=== PATIENT | female | born 1950 | race African-American/Black ===

== ENCOUNTER 2016-08-30 11:17 | Outpatient (CLI) | payer MEDICARE ==
[2016-08-30 12:51] LABS: Hemoglobin 9.7 g/dL (12.0-16.0); Mean Corpuscular HGB CONC 29.8 g/dL (32.0-36.0); Mean Corpuscular Hemoglobin 28.4 pg (27.0-31.0); Mean Corpuscular Volume 95.4 fl (81.0-99.0); Mean Platelet Volume 6.5 fL (7.4-10.4); Platelet Count 232 thou/uL (130-400); RBC Distribution Width 15.6 % (11.5-14.5); Red Blood Cell (RBC) Count 3.42 mill/uL (4.20-5.40); White Blood Cell (WBC) Count 2.6 thou/uL (4.8-10.8)
[2016-08-30 12:53] LABS: ALT (SGPT) 8 U/L (0-55); AST (SGOT) 23 U/L (5-34); Albumin 3.7 g/dL (3.4-4.8); Alkaline Phosphatase 59 U/L (40-150); Anion Gap 11 mmol/L (10-20); BUN (Urea Nitrogen) 12 mg/dL (9.8-20.1); Bilirubin, Total 0.6 mg/dL (0.2-1.2); Calc. Creatinine Clearance 0 mL/min (70-130); Carbon Dioxide 24 mmol/L (23-31); Cardiac Risk 3.8 (Less than 4.5); Chloride 107 mmol/L (98-107); Cholesterol 106 mg/dL (< 200 Desired); Estimated GFR-MDRD 55; Globulin 4.5 g/dL (2.4-3.5); Glucose 74 mg/dL (80-115); HDL Cholesterol 28 mg/dL (>60 Neg Risk); LDL Cholesterol, Calculated 49 mg/dL; Potassium 3.6 mmol/L (3.5-5.1); Protein, Total 8.2 g/dL (5.8-8.1); Sodium 138 mmol/L (136-145); Triglycerides 144 mg/dL (Less than 150)
[2016-08-30 14:03] LABS: Anisocytosis SLIGHT = 6-15 cells (100X) (0-5/hpf); Eosinophils 3 % (0-10); Lymphocytes 57 % (21-51); MDiff Complete? YES; Monocytes 14 % (0-10); Neutrophil 25 % (42-75); PLT Morphology Comment Appears Adequate
== END 2016-08-30 11:18 | disposition home or self-care (01) ==
LOC: HPCALD 11:17
PROVIDERS: ATTEND Family Medicine
DX: I10 Essential (primary) hypertension (principal); E78.5 Hyperlipidemia, unspecified
CPT/HCPCS: 36415; 80053; 80061; 84443; 85025

== ENCOUNTER 2016-11-14 16:52 | Outpatient (CLI) | payer MEDICARE ==
[2016-11-14 17:39] LABS: #Basophils 0.1 thou/uL (0.0-0.2); #Lymphocytes 0.9 thou/uL (1.20-3.40); #Monocytes 0.2 thou/uL (0.11-0.59); #Neutrophils 2.7 thou/uL (1.40-6.50); %Basophils 1.7 % (0.0-1.0); %Eosinophils 0.4 % (0.0-10.0); %Monocytes 4.9 % (0.0-10.0); Hemoglobin 9.6 g/dL (12.0-16.0); Mean Corpuscular HGB CONC 30.9 g/dL (32.0-36.0); Mean Corpuscular Hemoglobin 27.9 pg (27.0-31.0); Mean Corpuscular Volume 90.3 fl (81.0-99.0); Mean Platelet Volume 7.3 fL (7.4-10.4); Platelet Count 250 thou/uL (130-400); RBC Distribution Width 15.1 % (11.5-14.5); Red Blood Cell (RBC) Count 3.43 mill/uL (4.20-5.40); White Blood Cell (WBC) Count 3.8 thou/uL (4.8-10.8)
[2016-11-14 17:43] LABS: Bilirubin Negative (Negative); Blood, Urine Trace (Negative); Clarity Clear (Clear); Glucose, Urine (Dipstick) Negative (Negative); Leukocyte Negative (Negative); Nitrite Negative (Negative); Protein, Urine (Dipstick) Negative (Neg-Trace)
[2016-11-14 17:48] LABS: Anion Gap 17 mmol/L (10-20); BUN (Urea Nitrogen) 15 mg/dL (9.8-20.1); Calc. Creatinine Clearance 0 mL/min (70-130); Calcium 8.9 mg/dL (7.8-10.44); Carbon Dioxide 19 mmol/L (23-31); Chloride 106 mmol/L (98-107); Estimated GFR-MDRD 59; Glucose 99 mg/dL (80-115); Potassium 4.2 mmol/L (3.5-5.1); Sodium 138 mmol/L (136-145)
[2016-11-14 17:55] LABS: Bacteria/HPF 1+ HPF (None Seen); RBC/HPF 0-3 HPF (0-3); WBC/HPF 0-3 HPF (0-3)
== END 2016-11-14 16:53 | disposition home or self-care (01) ==
LOC: HPCALD 16:52
PROVIDERS: ATTEND Family Medicine
DX: R39.11 Hesitancy of micturition (principal); E86.0 Dehydration; R63.4 Abnormal weight loss
CPT/HCPCS: 36415; 80048; 81001; 84443; 85025; 87086

== ENCOUNTER 2016-12-20 10:49 | Outpatient (CLI) | payer MEDICARE ==
[2016-12-20 11:39] LABS: #Basophils 0.1 thou/uL (0.0-0.2); #Lymphocytes 0.9 thou/uL (1.20-3.40); #Monocytes 0.6 thou/uL (0.11-0.59); #Neutrophils 2.9 thou/uL (1.40-6.50); %Basophils 1.3 % (0.0-1.0); %Eosinophils 0.8 % (0.0-10.0); %Lymphocytes 19.9 % (21.0-51.0); %Monocytes 13.2 % (0.0-10.0); %Neutrophils 64.7 % (42.0-75.0); Hemoglobin 8.3 g/dL (12.0-16.0); Mean Corpuscular HGB CONC 32.6 g/dL (32.0-36.0); Mean Corpuscular Hemoglobin 29.3 pg (27.0-31.0); Mean Corpuscular Volume 89.8 fl (81.0-99.0); Mean Platelet Volume 7.4 fL (7.4-10.4); Platelet Count 154 thou/uL (130-400); RBC Distribution Width 15.4 % (11.5-14.5); Red Blood Cell (RBC) Count 2.82 mill/uL (4.20-5.40); White Blood Cell (WBC) Count 4.4 thou/uL (4.8-10.8)
[2016-12-20 11:41] LABS: ALT (SGPT) 14 U/L (8-55); AST (SGOT) 16 U/L (5-34); Albumin 3.5 g/dL (3.4-4.8); Alkaline Phosphatase 62 U/L (40-150); Anion Gap 14 mmol/L (10-20); BUN (Urea Nitrogen) 20 mg/dL (9.8-20.1); Bilirubin, Total 0.5 mg/dL (0.2-1.2); Calc. Creatinine Clearance 0 mL/min (70-130); Calcium 8.5 mg/dL (7.8-10.44); Carbon Dioxide 23 mmol/L (23-31); Chloride 104 mmol/L (98-107); Estimated GFR-MDRD 50; Globulin 3.7 g/dL (2.4-3.5); Glucose 93 mg/dL (80-115); Potassium 4.4 mmol/L (3.5-5.1); Protein, Total 7.2 g/dL (6.0-8.3); Sodium 137 mmol/L (136-145)
== END 2016-12-20 10:50 | disposition home or self-care (01) ==
LOC: BURLAB 10:49
PROVIDERS: ATTEND Internal Medicine Rheumatology
DX: E55.9 Vitamin D deficiency, unspecified (principal); M32.9 Systemic lupus erythematosus, unspecified
CPT/HCPCS: 36415; 80053; 85025

== ENCOUNTER 2017-01-10 11:08 | Emergency (ER) | payer MEDICARE ==
[2017-01-10] MEDS ORDERED: methylPREDNISolone Sod Succ/PF 125 MG/2 ML VIAL ONE (11:33)
[2017-01-10] MEDS ORDERED: Ketorolac Tromethamine 30 MG/ML VIAL ONE (11:33)
[2017-01-10 11:36] LABS: #Lymphocytes 0.6 thou/uL (1.20-3.40); #Monocytes 0.3 thou/uL (0.11-0.59); #Neutrophils 4.2 thou/uL (1.40-6.50); %Basophils 0.4 % (0.0-1.0); %Eosinophils 0.7 % (0.0-10.0); %Lymphocytes 12.4 % (21.0-51.0); %Monocytes 4.8 % (0.0-10.0); %Neutrophils 81.8 % (42.0-75.0); Mean Corpuscular HGB CONC 32.6 g/dL (32.0-36.0); Mean Corpuscular Hemoglobin 29.1 pg (27.0-31.0); Mean Corpuscular Volume 89.3 fl (81.0-99.0); Mean Platelet Volume 8.6 fL (7.4-10.4); Platelet Count 160 thou/uL (130-400); RBC Distribution Width 15.8 % (11.5-14.5); Red Blood Cell (RBC) Count 2.75 mill/uL (4.20-5.40); White Blood Cell (WBC) Count 5.1 thou/uL (4.8-10.8)
[2017-01-10 11:53] LABS: ALT (SGPT) 10 U/L (8-55); AST (SGOT) 16 U/L (5-34); Albumin 3.4 g/dL (3.4-4.8); Alkaline Phosphatase 53 U/L (40-150); Anion Gap 17 mmol/L (10-20); BUN (Urea Nitrogen) 29 mg/dL (9.8-20.1); Bilirubin, Total 0.4 mg/dL (0.2-1.2); Calc. Creatinine Clearance 0 mL/min (70-130); Calcium 8.7 mg/dL (7.8-10.44); Carbon Dioxide 20 mmol/L (23-31); Chloride 102 mmol/L (98-107); Estimated GFR-MDRD 39; Glucose 118 mg/dL (80-115); Potassium 3.7 mmol/L (3.5-5.1); Protein, Total 7.4 g/dL (6.0-8.3); Sodium 135 mmol/L (136-145)
== END 2017-01-10 12:44 | disposition home or self-care (01) ==
LOC: BURERS 11:08
DX: M32.9 Systemic lupus erythematosus, unspecified (principal); M19.90 Unspecified osteoarthritis, unspecified site; J44.9 Chronic obstructive pulmonary disease, unspecified; M10.9 Gout, unspecified; K21.9 Gastro-esophageal reflux disease without esophagitis; I10 Essential (primary) hypertension; F41.9 Anxiety disorder, unspecified; F17.210 Nicotine dependence, cigarettes, uncomplicated; Z79.52 Long term (current) use of systemic steroids; Z79.899 Other long term (current) drug therapy
CPT/HCPCS: 36415; 80053; 83880; 85025; 85379; 96361; 96374; 96375; J1885; J2930

== ENCOUNTER 2017-01-20 15:56 | Emergency (ER) | payer MEDICARE ==
[2017-01-20] MEDS ORDERED: Milk Of Magnesia 30 ML UDCUP ONE (16:11)
[2017-01-20] MEDS ORDERED: Lidocaine Viscous Sol 2% 15 ml UD Cup ONE (16:11)
[2017-01-20 16:38] LABS: ALT (SGPT) 14 U/L (8-55); AST (SGOT) 18 U/L (5-34); Albumin 3.6 g/dL (3.4-4.8); Alkaline Phosphatase 59 U/L (40-150); Anion Gap 16 mmol/L (10-20); BUN (Urea Nitrogen) 39 mg/dL (9.8-20.1); Bilirubin, Total 0.4 mg/dL (0.2-1.2); Calc. Creatinine Clearance 0 mL/min (70-130); Calcium 8.8 mg/dL (7.8-10.44); Carbon Dioxide 20 mmol/L (23-31); Chloride 101 mmol/L (98-107); Estimated GFR-MDRD 25; Globulin 3.8 g/dL (2.4-3.5); Glucose 95 mg/dL (80-115); Lipase 42 U/L (8-78); Potassium 3.7 mmol/L (3.5-5.1); Protein, Total 7.4 g/dL (6.0-8.3); Sodium 133 mmol/L (136-145)
[2017-01-20 16:39] LABS: #Basophils 0.1 thou/uL (0.0-0.2); #Lymphocytes 0.9 thou/uL (1.20-3.40); #Monocytes 0.3 thou/uL (0.11-0.59); #Neutrophils 3.5 thou/uL (1.40-6.50); %Basophils 2.1 % (0.0-1.0); %Eosinophils 0.9 % (0.0-10.0); %Lymphocytes 18.4 % (21.0-51.0); %Monocytes 6.1 % (0.0-10.0); %Neutrophils 72.6 % (42.0-75.0); Hemoglobin 8.2 g/dL (12.0-16.0); Mean Corpuscular HGB CONC 32.8 g/dL (32.0-36.0); Mean Corpuscular Hemoglobin 30.2 pg (27.0-31.0); Mean Corpuscular Volume 91.9 fl (81.0-99.0); Mean Platelet Volume 7.1 fL (7.4-10.4); Platelet Count 165 thou/uL (130-400); RBC Distribution Width 15.8 % (11.5-14.5); Red Blood Cell (RBC) Count 2.73 mill/uL (4.20-5.40); White Blood Cell (WBC) Count 4.8 thou/uL (4.8-10.8)
[2017-01-20 16:41] LABS: CKMB 0.7 ng/mL (0-6.6)
== END 2017-01-20 17:24 | disposition home or self-care (01) ==
LOC: BURERS 15:56
DX: R07.9 Chest pain, unspecified (principal); M32.9 Systemic lupus erythematosus, unspecified; J44.9 Chronic obstructive pulmonary disease, unspecified; K21.9 Gastro-esophageal reflux disease without esophagitis; I10 Essential (primary) hypertension; D64.9 Anemia, unspecified; F41.9 Anxiety disorder, unspecified; F17.210 Nicotine dependence, cigarettes, uncomplicated; Z79.52 Long term (current) use of systemic steroids; Z79.891 Long term (current) use of opiate analgesic; Z79.899 Other long term (current) drug therapy
CPT/HCPCS: 80053; 82553; 83690; 84484; 85025; 93005

== ENCOUNTER 2017-04-02 09:32 | Outpatient (CLI) | payer MEDICARE ==
[2017-04-02 11:54] LABS: Bilirubin Negative (Negative); Blood, Urine Negative (Negative); Clarity CLEAR (Clear); Glucose, Urine (Dipstick) Negative (Negative); Leukocyte Negative (Negative); Nitrite Negative (Negative); Protein, Urine (Dipstick) Negative (Neg-Trace); Specific Gravity, Urine 1.005 (1.002-1.036); pH, Urine 6.5 (5.0-9.0)
[2017-04-02 12:02] LABS: Anion Gap 11 mmol/L (10-20); BUN (Urea Nitrogen) 12 mg/dL (9.8-20.1); Calc. Creatinine Clearance 0 mL/min (70-130); Carbon Dioxide 29 mmol/L (23-31); Chloride 101 mmol/L (98-107); Estimated GFR-MDRD 59; Glucose 81 mg/dL (80-115); Potassium 4.2 mmol/L (3.5-5.1); Sodium 137 mmol/L (136-145)
[2017-04-02 12:12] LABS: Bacteria/HPF None Seen HPF (None Seen); Hyaline Casts/LPF NONE SEEN LPF (0-3 Hyaline); RBC/HPF None Seen HPF (0-3); Squamous Epithelial 0-3 HPF (0-3); WBC/HPF None Seen HPF (0-3)
--- NOTE | 2017-04-02 22:44 | ULT ---
BILATERAL RENAL ULTRASOUND 04/02/17 Ultrasonography of the kidneys and urinary tract was performed. The right kidney measures 9.6 x 4.5 x 4.1 cm. the left kidney is 8.8 x 8.5 x 4.6 cm. No mass or hydr onephrosis was seen in either. The thickness of the cortex and echogenicity of the cortex seems norm al. The urinary bladder contain no internal filling defects. Bilateral ureteral jets were seen. The bladder wall thickness was 5 mm which is borderline. IMPRESSION: No significant urinary tract findings. POS: HOME
== END 2017-04-02 09:33 | disposition home or self-care (01) ==
LOC: BURULT 09:32
PROVIDERS: ATTEND Internal Medicine Nephrology
DX: N18.3 Chronic kidney disease, stage 3 (moderate) (principal)
CPT/HCPCS: 36415; 76770; 80048; 81001

== ENCOUNTER 2017-04-11 10:05 | Inpatient (IN) | payer MEDICARE ==
[2017-04-11 10:45] LABS: #Eosinphils 0.1 thou/uL (0.0-0.7); #Lymphocytes 0.8 thou/uL (1.20-3.40); #Monocytes 0.4 thou/uL (0.11-0.59); #Neutrophils 2.3 thou/uL (1.40-6.50); %Basophils 0.6 % (0.0-1.0); %Eosinophils 2.3 % (0.0-10.0); %Lymphocytes 21.6 % (21.0-51.0); %Monocytes 12.4 % (0.0-10.0); %Neutrophils 63.1 % (42.0-75.0); Hemoglobin 7.4 g/dL (12.0-16.0); Mean Corpuscular HGB CONC 31.1 g/dL (32.0-36.0); Mean Corpuscular Hemoglobin 29.6 pg (27.0-31.0); Mean Platelet Volume 5.3 fL (7.4-10.4); Platelet Count 214 thou/uL (130-400); RBC Distribution Width 14.4 % (11.5-14.5); White Blood Cell (WBC) Count 3.6 thou/uL (4.8-10.8)
[2017-04-11 10:52] LABS: Anion Gap 13 mmol/L (10-20); BUN (Urea Nitrogen) 13 mg/dL (9.8-20.1); CK (CPK) 260 U/L (29-168); Calc. Creatinine Clearance 0 mL/min (70-130); Calcium 8.5 mg/dL (7.8-10.44); Carbon Dioxide 25 mmol/L (23-31); Chloride 104 mmol/L (98-107); Estimated GFR-MDRD 67; Glucose 82 mg/dL (80-115); Potassium 3.8 mmol/L (3.5-5.1); Sodium 138 mmol/L (136-145)
--- NOTE | 2017-04-11 11:34 | CT ---
PELVIC CT WITHOUT IV CONTRAST: History: 67-year-old female with right hip pain following an injury from a fall yesterday with persistent darya n. FINDINGS: Pedicle screws are noted stabilizing L4-5 with moderate anterolisthesis. Left total hip replacement changes. No evidence for an acute fracture of the pelvis or right femur. IMPRESSION: Bony demineralization with total left hip replacement changes. Lumbar spondylosis with pedicle screw s stabilizing L4 and L5 with anterolisthesis. No acute pelvic or right hip fracture. If the patient has persistent right hip pain and cannot ambulate at pre-trauma ambulation levels, consider follow u p MRI which may reveal insufficiency type fracture of the right hip not evident on CT. POS: [facility]
--- NOTE | 2017-04-11 11:35 | RAD ---
PA AND LATERAL OF THE CHEST: INDICATIONS: History of cough and fall. FINDINGS: The lungs are clear. The cardiomediastinal silhouette is within normal limits. No definite acute o sseous abnormality is evident. IMPRESSION: No acute cardiopulmonary abnormality. POS: [facility]
[2017-04-11 12:22] LABS: Bilirubin Negative (Negative); Blood, Urine Negative (Negative); Clarity Clear (Clear); Glucose, Urine (Dipstick) Negative (Negative); Leukocyte Negative (Negative); Nitrite Negative (Negative); Protein, Urine (Dipstick) Negative (Neg-Trace); pH, Urine 6.5 (5.0-9.0)
[2017-04-11 16:11] VITALS: BMI 26.4
[2017-04-11] MEDS ORDERED: HYDROcodone/Acetaminophen 5/325 mg Tablet PO PRN (16:46)
[2017-04-11] MEDS ORDERED: Acetaminophen 325 MG TAB PO PRN ×2 (16:46→17:25)
[2017-04-11] MEDS ORDERED: Ondansetron ODT 4 MG TAB SL PRN (16:46)
[2017-04-11] MEDS ORDERED: Ondansetron HCl/PF 4 MG/2 ML Vial IVP PRN (16:46)
[2017-04-11] MEDS ORDERED: Furosemide 20 MG/2 ML VIAL SLOW IVP SCH ×2 (17:00→20:00)
[2017-04-11] MEDS ORDERED: Nitroglycerin 2% Ointment 1 INCH/1 GM Packet TOP PRN (17:25)
[2017-04-11] MEDS ORDERED: Albuterol Sulfate 2.5 mg/3 ml Neb NEB PRN (17:29)
[2017-04-11 17:55] LABS: Iron 33 ug/dL (50-170); Iron Binding Capacity, Total 199 mcg/dL (265-497)
[2017-04-11 18:35] LABS: Folate (Folic Acid) 4.9 ng/mL (7.0-31.4)
[2017-04-11] MEDS: Ferrous Gluconate 324 MG TAB PO SCH (21:06)
[2017-04-11] MEDS: traMADol HCl 50 MG TAB PO SCH (21:06)
[2017-04-11] MEDS: Pregabalin 75 MG CAP PO SCH (21:07)
[2017-04-11] MEDS ORDERED: Acetaminophen 325 MG TAB PO SCH (22:30)
[2017-04-12 05:47] LABS: Anion Gap 13 mmol/L (10-20); BUN (Urea Nitrogen) 12 mg/dL (9.8-20.1); Calc. Creatinine Clearance 67 mL/min (70-130); Calcium 8.3 mg/dL (7.8-10.44); Carbon Dioxide 24 mmol/L (23-31); Chloride 106 mmol/L (98-107); Estimated GFR-MDRD 69; Glucose 78 mg/dL (80-115); Potassium 3.4 mmol/L (3.5-5.1); Sodium 140 mmol/L (136-145)
[2017-04-12] MEDS: traMADol HCl 50 MG TAB PO SCH ×3 (05:55→21:03)
[2017-04-12 06:17] LABS: #Eosinphils 0.1 thou/uL (0.0-0.7); #Lymphocytes 0.7 thou/uL (1.20-3.40); #Monocytes 0.5 thou/uL (0.11-0.59); #Neutrophils 2.6 thou/uL (1.40-6.50); %Basophils 0.7 % (0.0-1.0); %Eosinophils 2.4 % (0.0-10.0); %Lymphocytes 17.3 % (21.0-51.0); %Monocytes 12.7 % (0.0-10.0); %Neutrophils 66.9 % (42.0-75.0); Hemoglobin 9.9 g/dL (12.0-16.0); Mean Corpuscular HGB CONC 32.9 g/dL (32.0-36.0); Mean Corpuscular Hemoglobin 30.2 pg (27.0-31.0); Mean Corpuscular Volume 91.9 fl (81.0-99.0); Mean Platelet Volume 6.2 fL (7.4-10.4); Platelet Count 194 thou/uL (130-400); RBC Distribution Width 14.4 % (11.5-14.5); Red Blood Cell (RBC) Count 3.26 mill/uL (4.20-5.40); White Blood Cell (WBC) Count 3.9 thou/uL (4.8-10.8)
[2017-04-12] MEDS: Multivitamin W/ Minerals 1 TAB PO SCH (08:58)
[2017-04-12] MEDS: Senokot S 8.6-50 MG TAB PO SCH (08:58)
[2017-04-12] MEDS ORDERED: Furosemide 20 MG TAB PO SCH (09:00)
[2017-04-12] MEDS ORDERED: Lisinopril 20 MG TAB PO SCH (09:00)
[2017-04-12] MEDS ORDERED: Hydroxychloroquine Sulfate 200 MG TAB PO SCH (09:00)
[2017-04-12] MEDS ORDERED: NIFEdipine XL 30 MG TAB PO SCH (09:00)
[2017-04-12] MEDS: predniSONE 10 MG TAB PO SCH (09:04)
[2017-04-12] MEDS: Potassium Chloride 10 MEQ TAB PO SCH (09:04)
[2017-04-12] MEDS: Aspirin 81 mg Enteric Coated Tablet PO SCH (09:04)
[2017-04-12] MEDS: Ferrous Gluconate 324 MG TAB PO SCH ×2 (09:06→21:01)
[2017-04-12] MEDS: Pregabalin 75 MG CAP PO SCH (09:07)
[2017-04-12] MEDS: Fluticasone Propionate Nasal Spray 16 gm Bottle NASAL SCH (09:16)
[2017-04-12] MEDS: Cyanocobalamin 1000 MCG/ML VIAL SC SCH (17:35)
[2017-04-12] MEDS: Pregabalin 50 MG CAP PO SCH (21:02)
[2017-04-12] MEDS: hydrOXYzine 25 MG TAB PO PRN (21:59)
[2017-04-13] MEDS: traMADol HCl 50 MG TAB PO SCH ×3 (05:59→21:10)
[2017-04-13] MEDS: Pregabalin 50 MG CAP PO SCH ×2 (07:33→21:10)
[2017-04-13] MEDS: Aspirin 81 mg Enteric Coated Tablet PO SCH (07:35)
[2017-04-13] MEDS: Multivitamin W/ Minerals 1 TAB PO SCH (07:35)
[2017-04-13] MEDS: Senokot S 8.6-50 MG TAB PO SCH (07:35)
[2017-04-13] MEDS: Potassium Chloride 10 MEQ TAB PO SCH (07:36)
[2017-04-13] MEDS: predniSONE 10 MG TAB PO SCH (07:36)
[2017-04-13] MEDS: Folic Acid 1 MG TAB PO SCH (07:37)
[2017-04-13] MEDS: Furosemide 40 MG TAB PO SCH (07:38)
[2017-04-13] MEDS: Ferrous Gluconate 324 MG TAB PO SCH ×2 (07:38→21:09)
[2017-04-13] MEDS: Lisinopril 20 MG TAB PO SCH (07:39)
[2017-04-13] MEDS: Fluticasone Propionate Nasal Spray 16 gm Bottle NASAL SCH (07:43)
[2017-04-13] MEDS: Cyanocobalamin 1000 MCG/ML VIAL SC SCH (18:42)
[2017-04-13] MEDS: hydrOXYzine 25 MG TAB PO PRN (21:55)
[2017-04-14 05:54] LABS: Anion Gap 12 mmol/L (10-20); BUN (Urea Nitrogen) 14 mg/dL (9.8-20.1); Calc. Creatinine Clearance 76 mL/min (70-130); Calcium 8.6 mg/dL (7.8-10.44); Carbon Dioxide 26 mmol/L (23-31); Chloride 106 mmol/L (98-107); Estimated GFR-MDRD 79; Glucose 80 mg/dL (80-115); Potassium 3.8 mmol/L (3.5-5.1); Sodium 140 mmol/L (136-145)
[2017-04-14] MEDS: traMADol HCl 50 MG TAB PO SCH (05:57)
[2017-04-14 06:12] VITALS: BP 142/67; TEMP 98.5
[2017-04-14 07:31] LABS: Band 1 % (5-11); Eosinophils 1 % (0-10); Hemoglobin 10.1 g/dL (12.0-16.0); Hypochromia SLIGHT = 6-15 cells (100X) (0-5/hpf); Lymphocytes 22 % (21-51); MDiff Complete? YES; Mean Corpuscular HGB CONC 30.6 g/dL (32.0-36.0); Mean Corpuscular Hemoglobin 28.6 pg (27.0-31.0); Mean Corpuscular Volume 93.5 fl (81.0-99.0); Mean Platelet Volume 5.9 fL (7.4-10.4); Microcytosis SLIGHT = 6-15 cells (100X) (0-5/hpf); Monocytes 12 % (0-10); Neutrophil 64 % (42-75); PLT Morphology Comment Appears Adequate; Platelet Count 219 thou/uL (130-400); RBC Distribution Width 14.4 % (11.5-14.5); Red Blood Cell (RBC) Count 3.55 mill/uL (4.20-5.40); Small Platelets SLIGHT; White Blood Cell (WBC) Count 4.4 thou/uL (4.8-10.8)
[2017-04-14] MEDS: Senokot S 8.6-50 MG TAB PO SCH (09:20)
[2017-04-14] MEDS: Fluticasone Propionate Nasal Spray 16 gm Bottle NASAL SCH (09:20)
[2017-04-14] MEDS: Lisinopril 20 MG TAB PO SCH (09:21)
[2017-04-14] MEDS: predniSONE 10 MG TAB PO SCH (09:21)
[2017-04-14] MEDS: Potassium Chloride 10 MEQ TAB PO SCH (09:22)
[2017-04-14] MEDS: Aspirin 81 mg Enteric Coated Tablet PO SCH (09:22)
[2017-04-14] MEDS: Furosemide 40 MG TAB PO SCH (09:22)
[2017-04-14] MEDS: Multivitamin W/ Minerals 1 TAB PO SCH (09:22)
[2017-04-14] MEDS: Folic Acid 1 MG TAB PO SCH (09:22)
[2017-04-14] MEDS: Pregabalin 50 MG CAP PO SCH (09:22)
[2017-04-14] MEDS: Ferrous Gluconate 324 MG TAB PO SCH (09:22)
--- NOTE | 2017-04-14 11:17 | DIS ---
DATE OF ADMISSION: 04/11/2017 DATE OF TRANSFER: 04/14/2017 ADMISSION DIAGNOSES: 1. Symptomatic anemia. 2. Status post fall with right hip pain. DISCHARGE DIAGNOSES: 1. Symptomatic anemia. 2. Status post fall with right hip pain. 3. B12/folate/iron deficiency anemia. 4. Anemia of chronic disease. 5. Physical deconditioning. ATTENDING PHYSICIAN: Dr. Savanna Stevenson. HISTORY AND PHYSICAL EXAMINATION: Please see the report from the date of admission. PROCEDURES: 1. Chest x-ray from the date of admission showing no acute cardiopulmonary findings. 2. Pelvis CT from the date of admission, which ruled out right hip fracture status post fall. HOSPITAL COURSE: Ms. Granado is a 67-year-old -[place] female with past medical history of sy stemic lupus erythematosus and Raynaud syndrome with poor dentition, who fell in the outpatient sett ing and apparently slept on the floor the night of the fall rather than push her Life Alert monitor. She finally pushed it in the morning and EMS arrived. They assisted her, but she refused to go to the Emergency Department. The following day, she presented to my office complaining of weakness an d right hip pain. The patient also had been having some lower extremity edema. She notably had sli ght hypotension. She was recommended evaluation through the Emergency Department and the workup exc luded a right hip fracture. However, she was noted to be significantly anemic with a hemoglobin of less than 8. She was also ruled out for heart failure. Therefore, the patient was admitted and und erwent a type, cross and transfusion of 2 units leukopoor red blood cells, which she tolerated well. She was administered Lasix before each unit. This helped to resolve her lower extremity edema. H er hemoglobin and hematocrit improved subsequently and is 10.1 and 33.2 respectively, on the date of transfer. Physical therapy assessed the patient yesterday and noted the patient to have generalized weakness a nd deconditioning after her fall and was recommended that she stay here for continued therapy for [facility]. Her workup for the anemia included low serum iron with the patient notably noncompliant with her hadley moise sulfate at home. This was restarted at 325 mg p.o. b.i.d. In addition, her B12 level was low and she was started on cyanocobalamin 1000 mcg daily, which she will get for approximately 7 days an d then we will get this weekly for 4 weeks and then monthly thereafter. She also was noted to be de pletion with folate and was started on 1 mg daily. We have a dietary consult that is pending. We c hanged her diet to a mechanical soft due to her poor dentition. Due to her multiple comorbidities and physical deconditioning from this fall and the anemia, she luis l be transferred to our swing bed unit pending her insurance approval. DISPOSITION: Transfer to swing bed. CONDITION: Good. MEDICATIONS: 1. Tylenol 650 mg p.o. q.4 hours p.r.n. pain. 2. Ventolin 2.5 mg nebulized q.8 hours p.r.n. per respiratory therapy. 3. DuoNeb 3 mL nebs q.6 hours per respiratory therapy. 4. Aspirin 81 mg p.o. q. day. 5. Vitamin B12 1000 mcg subcu daily. 6. Fergon 325 mg p.o. b.i.d. 7. Flonase 2 grams per nare daily. 8. Folvite 1 mg p.o. q. day. 9. Lasix 40 mg p.o. q. day. 10. [place] 5/325 one p.o. q.6 hours p.r.n. pain. 11. Atarax 25 mg p.o. q.i.d. p.r.n. 12. Theragran-M 1 p.o. q. day. 13. Zestril 20 mg p.o. q. day. 14. Nitro-Bid ointment 1 inch topically b.i.d. p.r.n. 15. Zofran 4 mg IV or sublingual q.6 hours p.r.n. 16. Protonix 40 mg p.o. q. day. 17. Klor-Con 10 mEq p.o. q. day. 18. Prednisone 5 mg p.o. q. day. 19. Lyrica 50 mg p.o. b.i.d. 20. Senokot 1 p.o. q. day. 21. Zoloft 50 mg p.o. q. day. 22. Normal saline flush IV p.r.n. 23. Ultram 100 mg p.o. q.8 hours p.r.n. pain. INSTRUCTIONS: The patient will follow up with me pending her swing bed discharge in approximately 7 days.
== END 2017-04-14 11:17 | disposition swing bed (61) | DRG 812 ==
LOC: BURERS 10:05 → BURMED 13:00
PROVIDERS: ADMIT Family Medicine; ATTEND Family Medicine
PROC: 30233N1 Transfusion of Nonautologous Red Blood Cells into Peripheral Vein, Percutaneous Approach (ICD-10-PCS; principal; 2017-04-11)
DX: D50.9 Iron deficiency anemia, unspecified (principal); I95.9 Hypotension, unspecified; M25.551 Pain in right hip; Z91.81 History of falling; D51.9 Vitamin B12 deficiency anemia, unspecified; D52.9 Folate deficiency anemia, unspecified; D63.8 Anemia in other chronic diseases classified elsewhere; R60.0 Localized edema; J44.9 Chronic obstructive pulmonary disease, unspecified; I10 Essential (primary) hypertension; Z90.49 Acquired absence of other specified parts of digestive tract; Z72.0 Tobacco use
CPT/HCPCS: 36415; 36430; 71020; 72192; 80048; 81003; 82274; 82550; 82607; 82728; 82746; 83540; 83550; 83880; 85007; 85025; 85027; 86850; 86900; 86901; 86922; 94640; A4216; G8978-GP-CJ; G8979-GP-CI; J1940; J3420; J7512; J7620; P9016

== ENCOUNTER 2017-04-14 09:08 | Inpatient (IN) | payer MEDICARE ==
[2017-04-14 12:15] VITALS: BMI 26.4
[2017-04-14] MEDS ORDERED: Cyanocobalamin 1000 MCG/ML VIAL SC SCH (12:45)
[2017-04-14] MEDS ORDERED: Nitroglycerin 2% Ointment 1 INCH/1 GM Packet TOP PRN (12:53)
[2017-04-14] MEDS ORDERED: Ondansetron HCl/PF 4 MG/2 ML Vial IVP PRN (12:53)
[2017-04-14] MEDS ORDERED: Ondansetron ODT 4 MG TAB SL PRN (12:53)
[2017-04-14] MEDS ORDERED: Acetaminophen 325 MG TAB PO PRN (12:56)
[2017-04-14] MEDS ORDERED: Albuterol Sulfate 2.5 mg/3 ml Neb NEB PRN (12:56)
[2017-04-14] MEDS: traMADol HCl 50 MG TAB PO SCH ×2 (13:25→21:22)
[2017-04-14] MEDS: Ferrous Gluconate 324 MG TAB PO SCH (21:22)
[2017-04-14] MEDS: hydrOXYzine 25 MG TAB PO PRN (21:22)
[2017-04-14] MEDS: Pregabalin 50 MG CAP PO SCH (21:23)
[2017-04-15] MEDS: traMADol HCl 50 MG TAB PO SCH ×3 (06:19→21:04)
[2017-04-15] MEDS ORDERED: Cyanocobalamin 1000 MCG/ML VIAL SC SCH (09:00)
[2017-04-15] MEDS: Fluticasone Propionate Nasal Spray 16 gm Bottle NASAL SCH (09:05)
[2017-04-15] MEDS: Aspirin 81 mg Enteric Coated Tablet PO SCH (09:06)
[2017-04-15] MEDS: Ferrous Gluconate 324 MG TAB PO SCH ×2 (09:06→21:03)
[2017-04-15] MEDS: Senokot S 8.6-50 MG TAB PO SCH (09:06)
[2017-04-15] MEDS: Multivitamin W/ Minerals 1 TAB PO SCH (09:07)
[2017-04-15] MEDS: Furosemide 40 MG TAB PO SCH (09:07)
[2017-04-15] MEDS: predniSONE 10 MG TAB PO SCH (09:09)
[2017-04-15] MEDS: Lisinopril 20 MG TAB PO SCH (09:09)
[2017-04-15] MEDS: Potassium Chloride 10 MEQ TAB PO SCH (09:09)
[2017-04-15] MEDS: Pregabalin 50 MG CAP PO SCH ×2 (09:10→21:04)
[2017-04-15] MEDS: Folic Acid 1 MG TAB PO SCH (09:12)
[2017-04-15] MEDS: Cyanocobalamin 1000 MCG/ML VIAL SC SCH (17:39)
[2017-04-15] MEDS: hydrOXYzine 25 MG TAB PO PRN (21:03)
[2017-04-16] MEDS: traMADol HCl 50 MG TAB PO SCH ×3 (06:00→22:07)
[2017-04-16] MEDS: Fluticasone Propionate Nasal Spray 16 gm Bottle NASAL SCH (08:47)
[2017-04-16] MEDS: Furosemide 40 MG TAB PO SCH (08:48)
[2017-04-16] MEDS: Pregabalin 50 MG CAP PO SCH ×2 (08:48→22:07)
[2017-04-16] MEDS: Lisinopril 20 MG TAB PO SCH (08:48)
[2017-04-16] MEDS: Senokot S 8.6-50 MG TAB PO SCH (08:49)
[2017-04-16] MEDS: predniSONE 10 MG TAB PO SCH (08:49)
[2017-04-16] MEDS: Potassium Chloride 10 MEQ TAB PO SCH (08:49)
[2017-04-16] MEDS: Ferrous Gluconate 324 MG TAB PO SCH ×2 (08:49→22:06)
[2017-04-16] MEDS: Folic Acid 1 MG TAB PO SCH (08:49)
[2017-04-16] MEDS: Aspirin 81 mg Enteric Coated Tablet PO SCH (08:49)
[2017-04-16] MEDS: Multivitamin W/ Minerals 1 TAB PO SCH (08:50)
[2017-04-16] MEDS: Cyanocobalamin 1000 MCG/ML VIAL SC SCH (17:32)
[2017-04-17] MEDS: traMADol HCl 50 MG TAB PO SCH ×3 (06:05→21:22)
[2017-04-17] MEDS: Multivitamin W/ Minerals 1 TAB PO SCH (08:48)
[2017-04-17] MEDS: Furosemide 40 MG TAB PO SCH (08:49)
[2017-04-17] MEDS: Ferrous Gluconate 324 MG TAB PO SCH ×2 (08:49→21:21)
[2017-04-17] MEDS: predniSONE 10 MG TAB PO SCH (08:49)
[2017-04-17] MEDS: Potassium Chloride 10 MEQ TAB PO SCH (08:49)
[2017-04-17] MEDS: Folic Acid 1 MG TAB PO SCH (08:49)
[2017-04-17] MEDS: Senokot S 8.6-50 MG TAB PO SCH (08:50)
[2017-04-17] MEDS: Pregabalin 50 MG CAP PO SCH ×2 (08:50→21:21)
[2017-04-17] MEDS: Lisinopril 20 MG TAB PO SCH (08:51)
[2017-04-17] MEDS: Fluticasone Propionate Nasal Spray 16 gm Bottle NASAL SCH (08:52)
[2017-04-17] MEDS: Aspirin 81 mg Enteric Coated Tablet PO SCH (08:53)
[2017-04-17] MEDS: hydrOXYzine 25 MG TAB PO PRN ×2 (09:13→21:23)
[2017-04-17] MEDS: Cyanocobalamin 1000 MCG/ML VIAL SC SCH (17:49)
[2017-04-18] MEDS: traMADol HCl 50 MG TAB PO SCH ×3 (05:56→21:25)
[2017-04-18] MEDS: Folic Acid 1 MG TAB PO SCH (09:05)
[2017-04-18] MEDS: Senokot S 8.6-50 MG TAB PO SCH (09:05)
[2017-04-18] MEDS: Aspirin 81 mg Enteric Coated Tablet PO SCH (09:05)
[2017-04-18] MEDS: Potassium Chloride 10 MEQ TAB PO SCH (09:05)
[2017-04-18] MEDS: Lisinopril 20 MG TAB PO SCH (09:06)
[2017-04-18] MEDS: Ferrous Gluconate 324 MG TAB PO SCH ×2 (09:06→21:24)
[2017-04-18] MEDS: Pregabalin 50 MG CAP PO SCH ×2 (09:06→21:24)
[2017-04-18] MEDS: Furosemide 40 MG TAB PO SCH (09:06)
[2017-04-18] MEDS: predniSONE 10 MG TAB PO SCH (09:07)
[2017-04-18] MEDS: Multivitamin W/ Minerals 1 TAB PO SCH (09:07)
[2017-04-18] MEDS: Fluticasone Propionate Nasal Spray 16 gm Bottle NASAL SCH (09:15)
[2017-04-18] MEDS: hydrOXYzine 25 MG TAB PO PRN ×2 (12:13→21:26)
[2017-04-18] MEDS: Cyanocobalamin 1000 MCG/ML VIAL SC SCH (18:02)
[2017-04-19] MEDS: traMADol HCl 50 MG TAB PO SCH ×3 (06:06→21:23)
[2017-04-19] MEDS: Fluticasone Propionate Nasal Spray 16 gm Bottle NASAL SCH (08:22)
[2017-04-19] MEDS: Ferrous Gluconate 324 MG TAB PO SCH ×2 (08:24→21:23)
[2017-04-19] MEDS: Folic Acid 1 MG TAB PO SCH (08:24)
[2017-04-19] MEDS: Potassium Chloride 10 MEQ TAB PO SCH (08:24)
[2017-04-19] MEDS: Furosemide 40 MG TAB PO SCH (08:24)
[2017-04-19] MEDS: Senokot S 8.6-50 MG TAB PO SCH (08:24)
[2017-04-19] MEDS: Aspirin 81 mg Enteric Coated Tablet PO SCH (08:25)
[2017-04-19] MEDS: predniSONE 10 MG TAB PO SCH (08:25)
[2017-04-19] MEDS: Lisinopril 20 MG TAB PO SCH (08:25)
[2017-04-19] MEDS: Multivitamin W/ Minerals 1 TAB PO SCH (08:26)
[2017-04-19] MEDS: Pregabalin 50 MG CAP PO SCH ×2 (08:34→21:23)
[2017-04-19] MEDS: hydrOXYzine 25 MG TAB PO PRN (21:23)
[2017-04-20] MEDS: traMADol HCl 50 MG TAB PO SCH ×3 (06:03→21:33)
[2017-04-20] MEDS: Fluticasone Propionate Nasal Spray 16 gm Bottle NASAL SCH (07:59)
[2017-04-20] MEDS: Pregabalin 50 MG CAP PO SCH ×2 (08:00→21:34)
[2017-04-20] MEDS: Ferrous Gluconate 324 MG TAB PO SCH ×2 (08:01→21:35)
[2017-04-20] MEDS: Aspirin 81 mg Enteric Coated Tablet PO SCH (08:01)
[2017-04-20] MEDS: Senokot S 8.6-50 MG TAB PO SCH (08:01)
[2017-04-20] MEDS: Folic Acid 1 MG TAB PO SCH (08:02)
[2017-04-20] MEDS: Lisinopril 20 MG TAB PO SCH (08:02)
[2017-04-20] MEDS: predniSONE 10 MG TAB PO SCH (08:02)
[2017-04-20] MEDS: Multivitamin W/ Minerals 1 TAB PO SCH (08:03)
[2017-04-20] MEDS: Furosemide 40 MG TAB PO SCH (15:28)
[2017-04-20] MEDS: Potassium Chloride 10 MEQ TAB PO SCH (15:28)
[2017-04-20] MEDS ORDERED: Fleet Enema 133 ML BOT FS PRN (18:40)
[2017-04-20] MEDS: hydrOXYzine 25 MG TAB PO PRN (21:35)
[2017-04-21] MEDS: traMADol HCl 50 MG TAB PO SCH ×2 (05:32→13:23)
[2017-04-21 05:55] VITALS: TEMP 98.4
[2017-04-21] MEDS: Fluticasone Propionate Nasal Spray 16 gm Bottle NASAL SCH (09:19)
[2017-04-21] MEDS: Pregabalin 50 MG CAP PO SCH (09:20)
[2017-04-21] MEDS: Folic Acid 1 MG TAB PO SCH (09:20)
[2017-04-21] MEDS: Ferrous Gluconate 324 MG TAB PO SCH (09:21)
[2017-04-21] MEDS: Furosemide 40 MG TAB PO SCH (09:21)
[2017-04-21] MEDS: Potassium Chloride 10 MEQ TAB PO SCH (09:21)
[2017-04-21] MEDS: Aspirin 81 mg Enteric Coated Tablet PO SCH (09:21)
[2017-04-21] MEDS: predniSONE 10 MG TAB PO SCH (09:22)
[2017-04-21] MEDS: Lisinopril 20 MG TAB PO SCH (09:23)
[2017-04-21] MEDS: Senokot S 8.6-50 MG TAB PO SCH (09:23)
[2017-04-21 09:24] VITALS: BP 115/68
[2017-04-21] MEDS: Multivitamin W/ Minerals 1 TAB PO SCH (09:24)
== END 2017-04-21 16:20 | disposition home health service (06) | DRG 812 ==
LOC: BURMED 11:17
PROVIDERS: ADMIT Family Medicine; ATTEND Family Medicine
DX: D64.9 Anemia, unspecified (principal); I95.9 Hypotension, unspecified; M32.9 Systemic lupus erythematosus, unspecified; J44.9 Chronic obstructive pulmonary disease, unspecified; I73.00 Raynaud's syndrome without gangrene; Z91.81 History of falling; Z88.5 Allergy status to narcotic agent; Z91.040 Latex allergy status; F41.9 Anxiety disorder, unspecified; M79.7 Fibromyalgia; I10 Essential (primary) hypertension; F32.9 Major depressive disorder, single episode, unspecified; M10.9 Gout, unspecified; G89.4 Chronic pain syndrome; K21.9 Gastro-esophageal reflux disease without esophagitis; J30.9 Allergic rhinitis, unspecified; M19.90 Unspecified osteoarthritis, unspecified site; Z96.642 Presence of left artificial hip joint; Z96.653 Presence of artificial knee joint, bilateral; F17.210 Nicotine dependence, cigarettes, uncomplicated; R60.0 Localized edema; Z79.52 Long term (current) use of systemic steroids; W19.XXXA Unspecified fall, initial encounter; R60.9 Edema, unspecified
CPT/HCPCS: A4216; G8978-GP-CJ; G8979-GP-CI; J3420; J7512; J7620

== ENCOUNTER 2017-05-07 09:38 | Emergency (ER) | payer MEDICARE ==
[2017-05-07 10:18] LABS: #Eosinphils 0.2 thou/uL (0.0-0.7); #Monocytes 0.6 thou/uL (0.11-0.59); %Basophils 0.6 % (0.0-1.0); %Eosinophils 3.2 % (0.0-10.0); %Lymphocytes 14.4 % (21.0-51.0); %Neutrophils 72.9 % (42.0-75.0); Hemoglobin 10.2 g/dL (12.0-16.0); Mean Corpuscular HGB CONC 32.3 g/dL (32.0-36.0); Mean Corpuscular Hemoglobin 28.9 pg (27.0-31.0); Mean Corpuscular Volume 89.4 fl (81.0-99.0); Mean Platelet Volume 6.2 fL (7.4-10.4); Platelet Count 179 thou/uL (130-400); RBC Distribution Width 13.7 % (11.5-14.5); Red Blood Cell (RBC) Count 3.54 mill/uL (4.20-5.40); White Blood Cell (WBC) Count 6.8 thou/uL (4.8-10.8)
[2017-05-07 10:22] LABS: PTT 28.3 SEC (22.9-36.1)
[2017-05-07 10:23] LABS: D-Dimer Test 1.62 *mcg/mL (0.27-0.43); Prothrombin Time 13.2 SEC (12.0-14.7)
[2017-05-07 10:29] LABS: ALT (SGPT) 10 U/L (8-55); AST (SGOT) 20 U/L (5-34); Albumin 3.1 g/dL (3.4-4.8); Alkaline Phosphatase 61 U/L (40-150); Anion Gap 16 mmol/L (10-20); BUN (Urea Nitrogen) 32 mg/dL (9.8-20.1); Bilirubin, Total 0.5 mg/dL (0.2-1.2); Calc. Creatinine Clearance 0 mL/min (70-130); Calcium 8.7 mg/dL (7.8-10.44); Carbon Dioxide 27 mmol/L (23-31); Chloride 102 mmol/L (98-107); Estimated GFR-MDRD 31; Globulin 4.8 g/dL (2.4-3.5); Glucose 101 mg/dL (80-115); Magnesium 1.8 mg/dL (1.6-2.6); Potassium 3.3 mmol/L (3.5-5.1); Protein, Total 7.9 g/dL (6.0-8.3); Sodium 142 mmol/L (136-145)
[2017-05-07 10:31] LABS: CKMB 0.3 ng/mL (0-6.6); Troponin I Less than 0.010 ng/mL (< 0.028)
[2017-05-07] MEDS ORDERED: Pantoprazole 40 MG VIAL ONE (11:00)
[2017-05-07 11:06] LABS: Bilirubin Negative (Negative); Blood, Urine Negative (Negative); Clarity Clear (Clear); Glucose, Urine (Dipstick) Negative (Negative); Leukocyte Negative (Negative); Nitrite Negative (Negative); Protein, Urine (Dipstick) Negative (Neg-Trace); Specific Gravity, Urine 1.015 (1.005-1.030)
--- NOTE | 2017-05-07 18:26 | CT ---
CT OF THE BRAIN WITHOUT CONTRAST 05/07/17 Comparison is made with a prior CT dated 01/20/13. There is perhaps a little more atrophy today than before, but otherwise, there have been no adverse c hanges. The ventricles are normal in size for age and atrophy. A little bit of deep white matter luce ncy is consistent with mild chronic ischemic change. There was no sign of acute stroke, mass, edema, or bleeding. The visible paranasal sinuses are clear. IMPRESSION: No acute intracranial findings. POS: HOME
--- NOTE | 2017-05-07 18:28 | RAD ---
PORTABLE CHEST 05/07/17 An AP portable film at 1011 is compared with an 04/11/17 study. The heart is normal in size and the lungs are clear. There is no infiltrate, edema, congestion or eff usion. The mediastinum was unremarkable. The trachea is midline. Calcification is seen in the aortic arch. IMPRESSION: No acute thoracic finding. POS: HOME
--- NOTE | 2017-05-07 18:29 | ULT ---
RIGHT LEG VENOUS ULTRASOUND 05/07/17 Ultrasonography of the deep venous of the right lower extremity was performed by the technologist. Al l deep veins were freely compressible from groin to ankle. There was normal doppler response to augme ntation maneuvers. No echogenic clot was seen. IMPRESSION: No evidence of DVT. POS: HOME
== END 2017-05-07 11:46 | disposition short-term general hospital (02) ==
LOC: BURERS 09:38
DX: I95.9 Hypotension, unspecified (principal); I45.81 Long QT syndrome; J44.9 Chronic obstructive pulmonary disease, unspecified; M10.9 Gout, unspecified; K21.9 Gastro-esophageal reflux disease without esophagitis; I10 Essential (primary) hypertension; D64.9 Anemia, unspecified; F41.9 Anxiety disorder, unspecified; F17.210 Nicotine dependence, cigarettes, uncomplicated; Z79.899 Other long term (current) drug therapy; Z79.82 Long term (current) use of aspirin
CPT/HCPCS: 36415; 51701; 70450; 71010; 80053; 81003; 82274; 82553; 83605; 83735; 84484; 85025; 85379; 85610; 85730; 87040; 93005; 94760; 96361; 96374; A4353; C9113

== ENCOUNTER 2017-07-10 12:37 | Emergency (ER) | payer MEDICARE, OTHER ==
[2017-07-10 13:31] LABS: Hemoglobin 10.9 g/dL (12.0-16.0); Mean Corpuscular HGB CONC 30.4 g/dL (32.0-36.0); Mean Corpuscular Hemoglobin 25.6 pg (27.0-31.0); Mean Corpuscular Volume 84.4 fl (81.0-99.0); Mean Platelet Volume 6.2 fL (7.4-10.4); Platelet Count 230 thou/uL (130-400); RBC Distribution Width 15.2 % (11.5-14.5); Red Blood Cell (RBC) Count 4.25 mill/uL (4.20-5.40)
[2017-07-10 13:36] LABS: ALT (SGPT) 16 U/L (8-55); AST (SGOT) 33 U/L (5-34); Albumin 3.4 g/dL (3.4-4.8); Alkaline Phosphatase 56 U/L (40-150); Anion Gap 19 mmol/L (10-20); BUN (Urea Nitrogen) 17 mg/dL (9.8-20.1); Bilirubin, Total 0.5 mg/dL (0.2-1.2); Calc. Creatinine Clearance 0 mL/min (70-130); Calcium 9.4 mg/dL (7.8-10.44); Carbon Dioxide 19 mmol/L (23-31); Chloride 104 mmol/L (98-107); Estimated GFR-MDRD 83; Globulin 5.5 g/dL (2.4-3.5); Glucose 74 mg/dL (80-115); Potassium 3.1 mmol/L (3.5-5.1); Protein, Total 8.9 g/dL (6.0-8.3); Sodium 139 mmol/L (136-145)
[2017-07-10 13:37] LABS: CKMB 0.4 ng/mL (0-6.6); Troponin I 0.014 ng/mL (< 0.028)
[2017-07-10 13:49] LABS: #Eosinphils 0.1 thou/uL (0.0-0.7); #Monocytes 0.3 thou/uL (0.11-0.59); #Neutrophils 2.7 thou/uL (1.40-6.50); %Basophils 0.6 % (0.0-1.0); %Eosinophils 1.5 % (0.0-10.0); %Lymphocytes 24.2 % (21.0-51.0); %Monocytes 7.6 % (0.0-10.0); %Neutrophils 66.1 % (42.0-75.0)
[2017-07-10 13:50] LABS: Eosinophils 4 % (0-10); Lymphocytes 21 % (21-51); MDiff Complete? YES; Monocytes 8 % (0-10); Neutrophil 65 % (42-75); Reactive Lymphocytes 2 % (0-10)
== END 2017-07-10 14:20 | disposition home or self-care (01) ==
LOC: BURERS 12:37
DX: R53.81 Other malaise (principal); M19.90 Unspecified osteoarthritis, unspecified site; M32.9 Systemic lupus erythematosus, unspecified; J44.9 Chronic obstructive pulmonary disease, unspecified; M10.9 Gout, unspecified; K21.9 Gastro-esophageal reflux disease without esophagitis; I10 Essential (primary) hypertension; F41.9 Anxiety disorder, unspecified; F17.210 Nicotine dependence, cigarettes, uncomplicated; Z79.52 Long term (current) use of systemic steroids; Z79.82 Long term (current) use of aspirin; Z79.51 Long term (current) use of inhaled steroids; Z79.899 Other long term (current) drug therapy
CPT/HCPCS: 80053; 82553; 83605; 84443; 84484; 85025; 93005

== ENCOUNTER 2017-08-04 14:25 | Emergency (ER) | payer MEDICARE ==
[2017-08-04 15:38] LABS: CKMB 0.5 ng/mL (0-6.6); Troponin I Less than 0.010 ng/mL (< 0.028)
[2017-08-04 15:39] LABS: Band 2 % (5-11); Eosinophils 1 % (0-10); Hemoglobin 7.3 g/dL (12.0-16.0); Hypochromia MARKED = >30 cells (100X) (0-5/hpf); Lymphocytes 23 % (21-51); MDiff Complete? YES; Mean Corpuscular HGB CONC 31.9 g/dL (32.0-36.0); Mean Corpuscular Hemoglobin 27.9 pg (27.0-31.0); Mean Corpuscular Volume 87.4 fl (81.0-99.0); Mean Platelet Volume 8.7 fL (7.4-10.4); Monocytes 7 % (0-10); Neutrophil 67 % (42-75); Platelet Count 183 thou/uL (130-400); RBC Distribution Width 18.8 % (11.5-14.5); Rouleaux Formation MODERATE= 6-15 cells (100X) (None Seen); Tear Drops SLIGHT = 2-5 cells (100X) (0-1/hpf); White Blood Cell (WBC) Count 4.4 thou/uL (4.8-10.8)
[2017-08-04 15:43] LABS: ALT (SGPT) 8 U/L (8-55); AST (SGOT) 20 U/L (5-34); Albumin 3.1 g/dL (3.4-4.8); Alkaline Phosphatase 66 U/L (40-150); Anion Gap 14 mmol/L (10-20); BUN (Urea Nitrogen) 13 mg/dL (9.8-20.1); Bilirubin, Total 0.4 mg/dL (0.2-1.2); CK (CPK) 26 U/L (29-168); Calc. Creatinine Clearance 0 mL/min (70-130); Calcium 8.3 mg/dL (7.8-10.44); Carbon Dioxide 23 mmol/L (23-31); Chloride 107 mmol/L (98-107); Estimated GFR-MDRD 57; Globulin 4.7 g/dL (2.4-3.5); Glucose 101 mg/dL (80-115); Potassium 4.5 mmol/L (3.5-5.1); Protein, Total 7.8 g/dL (6.0-8.3); Sodium 139 mmol/L (136-145)
[2017-08-04] MEDS ORDERED: HYDROcodone/Acetaminophen 5/325 mg Tablet ONE (15:53)
--- NOTE | 2017-08-04 20:50 | RAD ---
PORTABLE CHEST: Date: 08-04-17 An AP portable film at 1443 is compared with a 05-13-17 study. FINDINGS: Heart is normal in size and the lungs are clear. There is no acute infiltrate or effusion present. Fa int calcification is seen in the aortic arch. IMPRESSION: No acute thoracic findings. POS: HOME
== END 2017-08-04 16:21 | disposition home or self-care (01) ==
LOC: BURERS 14:25
DX: R07.89 Other chest pain (principal); H61.22 Impacted cerumen, left ear; M19.90 Unspecified osteoarthritis, unspecified site; M32.9 Systemic lupus erythematosus, unspecified; J44.9 Chronic obstructive pulmonary disease, unspecified; K21.9 Gastro-esophageal reflux disease without esophagitis; I10 Essential (primary) hypertension; F41.9 Anxiety disorder, unspecified; F17.210 Nicotine dependence, cigarettes, uncomplicated; M10.9 Gout, unspecified
CPT/HCPCS: 71045; 80053; 82550; 82553; 84484; 85025; 85379; 93005

== ENCOUNTER 2017-09-22 15:13 | Emergency (ER) | payer MEDICARE, OTHER ==
[2017-09-22 15:45] LABS: PTT 29.7 SEC (22.9-36.1); Prothrombin Time 12.9 SEC (12.0-14.7)
[2017-09-22 15:51] LABS: Hemoglobin 8.9 g/dL (12.0-16.0); Mean Corpuscular HGB CONC 31.6 g/dL (32.0-36.0); Mean Corpuscular Hemoglobin 26.8 pg (27.0-31.0); Mean Corpuscular Volume 84.7 fl (81.0-99.0); Mean Platelet Volume 7.3 fL (7.4-10.4); Platelet Count 214 thou/uL (130-400); RBC Distribution Width 17.4 % (11.5-14.5); Red Blood Cell (RBC) Count 3.31 mill/uL (4.20-5.40); White Blood Cell (WBC) Count 4.5 thou/uL (4.8-10.8)
[2017-09-22 15:55] LABS: Band 2 % (5-11); CKMB 0.4 ng/mL (0-6.6); Lymphocytes 9 % (21-51); MDiff Complete? YES; Monocytes 7 % (0-10); Neutrophil 81 % (42-75); Reactive Lymphocytes 1 % (0-10); Troponin I Less than 0.010 ng/mL (< 0.028)
[2017-09-22 15:57] LABS: ALT (SGPT) 9 U/L (8-55); AST (SGOT) 19 U/L (5-34); Albumin 3.3 g/dL (3.4-4.8); Alkaline Phosphatase 68 U/L (40-150); Anion Gap 17 mmol/L (10-20); BUN (Urea Nitrogen) 27 mg/dL (9.8-20.1); Bilirubin, Total 0.3 mg/dL (0.2-1.2); CK (CPK) 32 U/L (29-168); Calc. Creatinine Clearance 0 mL/min (70-130); Calcium 8.8 mg/dL (7.8-10.44); Carbon Dioxide 23 mmol/L (23-31); Chloride 101 mmol/L (98-107); Estimated GFR-MDRD 40; Globulin 5.3 g/dL (2.4-3.5); Glucose 98 mg/dL (80-115); Potassium 5.2 mmol/L (3.5-5.1); Protein, Total 8.6 g/dL (6.0-8.3); Sodium 136 mmol/L (136-145)
== END 2017-09-22 16:37 | disposition home or self-care (01) ==
LOC: BURERS 15:13
DX: D64.9 Anemia, unspecified (principal); I12.9 Hypertensive chronic kidney disease with stage 1 through stage 4 chronic kidney disease, or unspecified chronic kidney disease; N18.9 Chronic kidney disease, unspecified; M19.90 Unspecified osteoarthritis, unspecified site; M32.9 Systemic lupus erythematosus, unspecified; M10.9 Gout, unspecified; J44.9 Chronic obstructive pulmonary disease, unspecified; K21.9 Gastro-esophageal reflux disease without esophagitis; F41.9 Anxiety disorder, unspecified; F17.210 Nicotine dependence, cigarettes, uncomplicated; Z79.82 Long term (current) use of aspirin; Z79.899 Other long term (current) drug therapy; Z79.51 Long term (current) use of inhaled steroids
CPT/HCPCS: 80053; 82550; 82553; 84484; 85025; 85610; 85730; 93005; 94760; 96360

== ENCOUNTER 2017-11-28 12:27 | Outpatient (CLI) | payer MEDICARE ==
--- NOTE | 2017-11-28 15:07 | RAD ---
CHEST 2 VIEWS: Date: 11/28/17 Comparison made with the 08/04/17 study. FINDINGS: The heart is normal in size. There is no vascular congestion, edema, or pleural effusion. Mild elevat ion of the right hemidiaphragm is chronic. There are no signs of pneumonia or other lung pathology. C alcification is seen in the aortic arch. IMPRESSION: Arteriosclerosis, but no acute finding. POS: HOME
--- NOTE | 2017-11-28 15:08 | RAD ---
LEFT SHOULDER 3 VIEWS: Date: 11/28/17 A minor amount of bony spurring is seen in the glenohumeral joint. Other than this, there were no fin dings of concern. No fracture, dislocation, or AC joint widening seen. IMPRESSION: Very minimal bony spurring. POS: HOME
== END 2017-11-28 12:28 | disposition home or self-care (01) ==
LOC: BURRAD 12:27
PROVIDERS: ATTEND Family Medicine
DX: M25.512 Pain in left shoulder (principal); R09.1 Pleurisy; M75.92 Shoulder lesion, unspecified, left shoulder; I70.0 Atherosclerosis of aorta
CPT/HCPCS: 71046

== ENCOUNTER 2018-01-15 09:24 | Observation (INO) | payer MEDICARE, OTHER ==
[2018-01-15] MEDS ORDERED: Oxymetazoline HCl 0.05% ( 15 ML ) ONE (09:37)
[2018-01-15] MEDS ORDERED: Furosemide 40 MG TAB ONE (09:37)
[2018-01-15 10:00] LABS: #Eosinphils 0.1 thou/uL (0.0-0.7); #Lymphocytes 0.9 thou/uL (1.20-3.40); #Monocytes 0.4 thou/uL (0.11-0.59); #Neutrophils 1.7 thou/uL (1.40-6.50); %Basophils 0.4 % (0.0-1.0); %Eosinophils 3.4 % (0.0-10.0); %Lymphocytes 29.9 % (21.0-51.0); %Monocytes 12.6 % (0.0-10.0); %Neutrophils 53.6 % (42.0-75.0); Hemoglobin 7.2 g/dL (12.0-16.0); Mean Corpuscular HGB CONC 32.1 g/dL (32.0-36.0); Mean Corpuscular Hemoglobin 26.3 pg (27.0-31.0); Mean Corpuscular Volume 81.9 fL (78.0-98.0); Mean Platelet Volume 4.6 fL (7.4-10.4); Platelet Count 210 thou/uL (130-400); RBC Distribution Width 14.8 % (11.5-14.5); Red Blood Cell (RBC) Count 2.75 mill/uL (4.20-5.40); White Blood Cell (WBC) Count 3.2 thou/uL (4.8-10.8)
[2018-01-15 10:16] LABS: Prothrombin Time 13.6 SEC (12.0-14.7)
[2018-01-15] MEDS ORDERED: Phytonadione 10 MG/ML AMP ONE (11:06)
[2018-01-15 12:28] VITALS: BMI 26.6
[2018-01-15] MEDS ORDERED: Prevnar 13-Val Conj/PF 0.5 ML SYRINGE IM ONE (12:45)
[2018-01-15] MEDS ORDERED: Ondansetron HCl/PF 4 MG/2 ML Vial IVP PRN (14:26)
[2018-01-15] MEDS ORDERED: Acetaminophen 325 MG TAB PO PRN ×2 (14:27→16:30)
[2018-01-15] MEDS ORDERED: Ondansetron ODT 4 MG TAB PO PRN (14:27)
[2018-01-15] MEDS ORDERED: Oxymetazoline HCl 0.05% ( 15 ML ) NASAL PRN (16:30)
[2018-01-15] MEDS ORDERED: traMADol HCl 50 MG TAB PO PRN (16:30)
[2018-01-15] MEDS ORDERED: Furosemide 40 MG TAB PO PRN (16:30)
[2018-01-15] MEDS ORDERED: PETROLATUM WHITE TOP PRN (16:30)
[2018-01-15] MEDS ORDERED: Cyanocobalamin 1000 MCG/ML VIAL SC SCH (16:30)
[2018-01-15] MEDS ORDERED: Albuterol Sulfate 2.5 mg/3 ml Neb NEB PRN (16:30)
[2018-01-15] MEDS ORDERED: Lorazepam 0.5 MG TAB PO PRN (16:30)
[2018-01-15] MEDS ORDERED: Furosemide 20 MG/2 ML VIAL SLOW IVP SCH (16:45)
[2018-01-15] MEDS ORDERED: Sodium Chloride 0.65% Nasal 44 ML BOT EA NARE PRN (16:58)
[2018-01-15] MEDS ORDERED: METAXALONE 800 MG PO PRN (17:00)
[2018-01-15] MEDS ORDERED: LIDOCAINE TOP PRN (17:15)
[2018-01-15] MEDS: Pregabalin 50 MG CAP PO SCH ×2 (20:48→23:14)
[2018-01-15] MEDS: Mupirocin 2% Ointment 22 GM Tube TOP SCH (20:50)
--- NOTE | 2018-01-15 21:03 | HP ---
DATE OF ADMISSION: 01/15/2018 CHIEF COMPLAINT: Epistaxis. HISTORY OF PRESENT ILLNESS: A 67-year-old female presented to [facility] Emergency Department brittany ier today with complaints of worsening epistaxis, which initially began yesterday and has been presen t intermittently since that time. She reports the bleeding has been occurring from the right nostril for which a Rhino Rocket was placed in the emergency department. She was seen in the outpatient set tin yesterday with a check of her hemoglobin secondary to the epistaxis, which was notably 8.3. Upo n re-evaluation in the emergency department today, her hemoglobin is now 7.2 and associated with gene ralized weakness. The patient does have a history of chronic anemia for which she receives monthly B 12 injections and takes iron supplementation. She is on no anticoagulant therapy. The patient denie s having frequent epistaxis with last occurrences approximately 2 years prior. She denies having any trauma to cause these symptoms. Due to her acute blood loss being symptomatic, she will be admitted for 2 units of packed red blood cell transfusion. Of note, she did have a transfusion of 2 units pa cked red blood cells last April as well. PAST MEDICAL HISTORY: Iron deficiency anemia, pernicious anemia, chronic obstructive pulmonary disea se, hypertension, depression, gout, venous insufficiency of the lower extremities, Raynaud's phenomen on, chronic pain, gastroesophageal reflux disease, fibromyalgia, lupus, history of GI bleed in 2013. PAST SURGICAL HISTORY: Status post total left knee arthroplasty, status post total left hip arthropl asty, prior back surgery, bilateral breast biopsies, and EGD with normal findings in 2013. ALLERGIES: CODEINE AND LATEX. SOCIAL HISTORY: The patient lives locally and has been set up for Home Health Services. No ETOH or illicit drug use. She is a smoker. FAMILY HISTORY: Noncontributory. CURRENT MEDICATIONS: Include lidocaine 5% gel 2 grams to affected area up to 4 times a day, Tylenol 325 mg 2 tablets as needed q.6 hours, aspirin 81 mg p.o. daily, omeprazole 40 mg p.o. daily, Xopenex 1.25 mg/3 mL nebs q.8 hours p.r.n., Senokot/docusate sodium 8.6/50 mg at bedtime p.r.n., triamcinolon e 0.025% cream b.i.d. p.r.n., ferrous gluconate 324 mg p.o. daily, amlodipine 10 mg p.o. daily, krzysztof hly cyanocobalamin 1000 mcg/mL injection, folic acid 1 mg p.o. daily, prednisone 5 mg p.o. daily, The ragran-M 1 tablet p.o. daily, Lyrica 50 mg p.o. daily, metaxalone 800 mg p.o. t.i.d. p.r.n., Zoloft 1 00 mg p.o. daily, hydroxyzine 25 mg 2 tablets p.o. at bedtime, atorvastatin 10 mg p.o. daily, tramado l 50 mg p.o. q.6 hours p.r.n., lorazepam 0.5 mg p.o. q.6 hours p.r.n., Flonase 2 sprays in each nostr il daily, Anoro Ellipta 62.2/25 mcg 1 inhalation daily, Lasix 40 mg p.o. daily p.r.n. REVIEW OF SYSTEMS: General: The patient complains of fatigue. Ears, nose, and throat: Denies sore throat, nasal congestion. Does have epistaxis. Cardiovascular: Denies chest pain or palpitations. Respiratory: Denies shortness of breath or cough. Gastrointestinal: Denies abdominal pain, nause a, vomiting, diarrhea, or constipation. Genitourinary: Denies dysuria. Musculoskeletal: Complains of joint pain. Dermatologic: Denies rash. Neurologic: Denies headache. LABORATORY DATA: White blood cell count 3.2, H&H are 7.2 and 22.5, platelets 210. Coag panel shows INR of 1 with a PT of 13.6, PTT is elevated at 110. PHYSICAL EXAMINATION: VITAL SIGNS: Temperature is 98.9, pulse is 62, respiratory rate is 18, oxygen 99% on room air, blood pressure is 132/62. GENERAL: The patient is alert and oriented, in no acute distress. HEAD, EYES, EARS, NOSE, AND THROAT: Normocephalic and atraumatic. She has a Rhino Rocket to the rig ht nostril. Moist mucous membranes. Eyes, pupils equal, round, and reactive to light. Extraocular muscles are intact bilaterally. NECK: Supple. No lymphadenopathy. CARDIAC: Regular rate and rhythm. 6 systolic ejection murmur. Normal S1, S2. RESPIRATORY: Clear to auscultation bilaterally without wheezes, rales, or rhonchi. ABDOMEN: Soft and nontender to palpation. No masses. EXTREMITIES: No clubbing, cyanosis, or edema. She has a peripheral IV to the right upper extremity. SKIN: She has dry skin to the distal phalanges. NEUROLOGIC: Nonfocal. Cranial nerves II-XII grossly intact. ASSESSMENT AND PLAN: 1. Symptomatic anemia. The patient has been typed and crossed for 2 units packed red blood cells, w hich she will receive with administration of 20 mg IV Lasix between each unit, followed by a repeat o f her CBC after the second unit has been administered. She will resume her usual medications includi ng iron supplementation. 2. Epistaxis. Rhino Rocket is in place to the right naris. I have arranged a followup appointment with Dr. Jaffe, ENT, tomorrow at 1345 hours for the patient to follow up with potential cauterizatio n if deemed necessary. The patient's PTT was elevated upon initial lab draw. We will evaluate her l iver function with a CMP accordingly. 3. Hypertension. The patient is hemodynamically stable and will resume her usual blood pressure med ications. 4. Chronic obstructive pulmonary disease. We will resume the patient's usual medications. She is s table on room air. 5. Fibromyalgia, chronic pain. We will resume the patient's p.r.n. pain medications. 6. Prophylaxis. We will resume the patient's PPI. We will withhold anticoagulant secondary to her anemic state and epistaxis. CODE STATUS: FULL. DISPOSITION: The patient should be able to discharge tomorrow morning after completion of her 2 unit s packed red blood cells with followup CBC and planned outpatient followup with ENT, ml Olivera rrow afternoon at 1345 hours.
[2018-01-15] MEDS ORDERED: Pregabalin 50 MG CAP PO SCH (21:15)
[2018-01-15 22:03] LABS: #Basophils 0.1 thou/uL (0.0-0.2); #Eosinphils 0.1 thou/uL (0.0-0.7); #Lymphocytes 0.8 thou/uL (1.20-3.40); #Monocytes 0.4 thou/uL (0.11-0.59); #Neutrophils 2.4 thou/uL (1.40-6.50); %Basophils 1.9 % (0.0-1.0); %Eosinophils 2.9 % (0.0-10.0); %Monocytes 11.2 % (0.0-10.0); %Neutrophils 62.9 % (42.0-75.0); Hemoglobin 9.2 g/dL (12.0-16.0); Mean Corpuscular HGB CONC 34.9 g/dL (32.0-36.0); Mean Corpuscular Volume 80.1 fL (78.0-98.0); Mean Platelet Volume 5.9 fL (7.4-10.4); Platelet Count 181 thou/uL (130-400); RBC Distribution Width 13.9 % (11.5-14.5); Red Blood Cell (RBC) Count 3.28 mill/uL (4.20-5.40); White Blood Cell (WBC) Count 3.9 thou/uL (4.8-10.8)
[2018-01-15 22:15] LABS: ALT (SGPT) Less than 7 U/L (8-55); AST (SGOT) 14 U/L (5-34); Albumin 2.9 g/dL (3.4-4.8); Alkaline Phosphatase 52 U/L (40-150); Anion Gap 12 mmol/L (10-20); BUN (Urea Nitrogen) 12 mg/dL (9.8-20.1); Bilirubin, Total 0.4 mg/dL (0.2-1.2); Calc. Creatinine Clearance 73 mL/min (70-130); Calcium 8.6 mg/dL (7.8-10.44); Carbon Dioxide 26 mmol/L (23-31); Chloride 106 mmol/L (98-107); Estimated GFR-MDRD 75; Glucose 103 mg/dL (80-115); Potassium 3.2 mmol/L (3.5-5.1); Protein, Total 6.9 g/dL (6.0-8.3); Sodium 141 mmol/L (136-145)
[2018-01-15] MEDS: TRIAMCINOLONE ACETONIDE TOP SCH (22:45)
[2018-01-16 06:18] LABS: Anisocytosis SLIGHT = 6-15 cells (100X) (0-5/hpf); Band 8 % (5-11); Eosinophils 1 % (0-10); Lymphocytes 23 % (21-51); MDiff Complete? YES; Mean Corpuscular HGB CONC 33.8 g/dL (32.0-36.0); Mean Corpuscular Hemoglobin 27.3 pg (27.0-31.0); Mean Corpuscular Volume 80.7 fL (78.0-98.0); Mean Platelet Volume 5.9 fL (7.4-10.4); Monocytes 13 % (0-10); Neutrophil 55 % (42-75); PLT Morphology Comment Appears Adequate; Platelet Count 173 thou/uL (130-400); RBC Distribution Width 13.9 % (11.5-14.5); Red Blood Cell (RBC) Count 3.31 mill/uL (4.20-5.40); White Blood Cell (WBC) Count 3.7 thou/uL (4.8-10.8)
[2018-01-16] MEDS: Mupirocin 2% Ointment 22 GM Tube TOP SCH (08:23)
[2018-01-16] MEDS: TRIAMCINOLONE ACETONIDE TOP SCH (08:25)
[2018-01-16] MEDS ORDERED: Ferrous Gluconate 324 MG TAB PO SCH (09:00)
[2018-01-16] MEDS ORDERED: Amlodipine 5 MG TAB PO SCH (09:00)
[2018-01-16] MEDS ORDERED: [UNRECOGNIZED DRUG - OTHER] PO SCH (09:00)
[2018-01-16] MEDS ORDERED: Fluticasone Propionate Nasal Spray 16 gm Bottle NASAL SCH (09:00)
[2018-01-16] MEDS ORDERED: LYCOPENE PO SCH (09:00)
[2018-01-16] MEDS ORDERED: Non-Formulary Item 1 EACH (Prednisone [Prednisone] 5 MG) PO SCH (09:00)
[2018-01-16] MEDS ORDERED: Senokot S 8.6-50 MG TAB PO SCH (09:00)
[2018-01-16] MEDS ORDERED: Multivitamin W/ Minerals 1 TAB PO SCH (09:00)
[2018-01-16] MEDS ORDERED: Folic Acid 1 MG TAB PO SCH (09:00)
[2018-01-16] MEDS ORDERED: Potassium Chloride 10 MEQ TAB PO SCH (09:00)
[2018-01-16] MEDS ORDERED: Lisinopril 20 MG TAB PO SCH (09:00)
[2018-01-16] MEDS ORDERED: Pregabalin 50 MG CAP PO SCH (09:00)
[2018-01-16] MEDS ORDERED: hydrOXYzine 25 MG TAB PO SCH (09:00)
[2018-01-16] MEDS ORDERED: Aspirin 81 mg Enteric Coated Tablet PO SCH (09:00)
[2018-01-16] MEDS ORDERED: COQ10 PO SCH (09:00)
[2018-01-16] MEDS ORDERED: LUTEIN PO SCH (09:00)
[2018-01-16] MEDS ORDERED: MV MN PO SCH (09:00)
[2018-01-16] MEDS ORDERED: Atorvastatin Calcium 10 MG TAB PO SCH (09:00)
[2018-01-16 09:56] VITALS: TEMP 98.4
[2018-01-16 09:58] VITALS: BP 164/72
== END 2018-01-16 13:44 | disposition home or self-care (01) ==
LOC: BURERS 09:24 → BURMED 10:55
PROVIDERS: ADMIT Family Medicine; ATTEND Family Medicine
DX: R04.0 Epistaxis (principal); D50.0 Iron deficiency anemia secondary to blood loss (chronic); J44.9 Chronic obstructive pulmonary disease, unspecified; I10 Essential (primary) hypertension; F32.9 Major depressive disorder, single episode, unspecified; M10.9 Gout, unspecified; G89.4 Chronic pain syndrome; K21.9 Gastro-esophageal reflux disease without esophagitis; M79.7 Fibromyalgia; L93.0 Discoid lupus erythematosus; F17.210 Nicotine dependence, cigarettes, uncomplicated; Z88.5 Allergy status to narcotic agent; Z91.040 Latex allergy status; Z79.51 Long term (current) use of inhaled steroids; Z79.52 Long term (current) use of systemic steroids; Z79.899 Other long term (current) drug therapy
CPT/HCPCS: 30901; 36415; 36430; 80053; 85025; 85610; 85730; 86850; 86900; 86901; 86922; 96372; A4216; G0378; J3420; J3430; J7620; P9016

== ENCOUNTER 2018-01-20 09:47 | Emergency (ER) | payer MEDICARE, OTHER ==
[2018-01-20 10:21] LABS: #Eosinphils 0.1 thou/uL (0.0-0.7); #Lymphocytes 1.1 thou/uL (1.20-3.40); #Monocytes 0.5 thou/uL (0.11-0.59); #Neutrophils 1.8 thou/uL (1.40-6.50); %Basophils 0.5 % (0.0-1.0); %Eosinophils 2.5 % (0.0-10.0); %Monocytes 13.8 % (0.0-10.0); %Neutrophils 52.2 % (42.0-75.0); Hemoglobin 9.1 g/dL (12.0-16.0); Mean Corpuscular HGB CONC 34.1 g/dL (32.0-36.0); Mean Corpuscular Hemoglobin 27.5 pg (27.0-31.0); Mean Corpuscular Volume 80.8 fL (78.0-98.0); Mean Platelet Volume 4.9 fL (7.4-10.4); Platelet Count 191 thou/uL (130-400); RBC Distribution Width 13.6 % (11.5-14.5); Red Blood Cell (RBC) Count 3.29 mill/uL (4.20-5.40); White Blood Cell (WBC) Count 3.4 thou/uL (4.8-10.8)
== END 2018-01-20 11:03 | disposition home or self-care (01) ==
LOC: BURERS 09:47
DX: R04.0 Epistaxis (principal); M19.90 Unspecified osteoarthritis, unspecified site; M79.7 Fibromyalgia; I10 Essential (primary) hypertension; M10.9 Gout, unspecified; F41.9 Anxiety disorder, unspecified; D64.9 Anemia, unspecified; Z87.891 Personal history of nicotine dependence
CPT/HCPCS: 36415; 85025; 99283

== ENCOUNTER 2018-03-04 16:44 | Emergency (ER) | payer MEDICARE ==
[2018-03-04 17:51] LABS: PTT 106.3 SEC (22.9-36.1); Prothrombin Time 13.4 SEC (12.0-14.7)
[2018-03-04 17:56] LABS: ALT (SGPT) 10 U/L (8-55); AST (SGOT) 20 U/L (5-34); Albumin 3.6 g/dL (3.4-4.8); Alkaline Phosphatase 63 U/L (40-150); Anion Gap 13 mmol/L (10-20); BUN (Urea Nitrogen) 13 mg/dL (9.8-20.1); Bilirubin, Total Less than 0.2 mg/dL (0.2-1.2); Calc. Creatinine Clearance 0 mL/min (70-130); Carbon Dioxide 25 mmol/L (23-31); Chloride 105 mmol/L (98-107); Estimated GFR-MDRD 58; Globulin 5.3 g/dL (2.4-3.5); Glucose 104 mg/dL (80-115); Potassium 3.4 mmol/L (3.5-5.1); Protein, Total 8.9 g/dL (6.0-8.3); Sodium 140 mmol/L (136-145)
[2018-03-04 18:05] LABS: #Lymphocytes 0.9 thou/uL (1.20-3.40); #Monocytes 0.5 thou/uL (0.11-0.59); #Neutrophils 3.3 thou/uL (1.40-6.50); %Basophils 0.6 % (0.0-1.0); %Eosinophils 0.5 % (0.0-10.0); %Monocytes 10.8 % (0.0-10.0); Basophilic Stippling SLIGHT = 1-2 cells (100X) (None Seen); Hemoglobin 6.7 g/dL (12.0-16.0); MDiff Complete? YES; Macrocytosis MARKED = >30 cells (100X) (0-5/hpf); Mean Corpuscular HGB CONC 31.7 g/dL (32.0-36.0); Mean Corpuscular Hemoglobin 28.4 pg (27.0-31.0); Mean Corpuscular Volume 89.6 fL (78.0-98.0); Mean Platelet Volume 7.3 fL (7.4-10.4); Microcytosis MODERATE=15-30 cells (100X) (0-5/hpf); Platelet Count 185 thou/uL (130-400); RBC Distribution Width 21.1 % (11.5-14.5); Red Blood Cell (RBC) Count 2.36 mill/uL (4.20-5.40); Tear Drops SLIGHT = 2-5 cells (100X) (0-1/hpf); White Blood Cell (WBC) Count 4.8 thou/uL (4.8-10.8)
[2018-03-04 18:11] LABS: Thyroid Stimulating Hormone 0.2976 uIU/mL (0.35-4.94)
[2018-03-04 22:08] LABS: Iron 30 ug/dL (50-170); Iron Binding Capacity, Total 245 mcg/dL (265-497)
[2018-03-04 22:19] LABS: Reticulocyte Count 3.4 % (0.5-1.5)
[2018-03-04 23:14] LABS: Ferritin 1091.74 ng/mL (10-291)
== END 2018-03-04 18:58 | disposition short-term general hospital (02) ==
LOC: BURERS 16:44
DX: D64.9 Anemia, unspecified (principal); D68.9 Coagulation defect, unspecified; L93.0 Discoid lupus erythematosus; J44.9 Chronic obstructive pulmonary disease, unspecified; M10.9 Gout, unspecified; K21.9 Gastro-esophageal reflux disease without esophagitis; I10 Essential (primary) hypertension; F41.9 Anxiety disorder, unspecified; F17.210 Nicotine dependence, cigarettes, uncomplicated; Z79.899 Other long term (current) drug therapy; Z79.82 Long term (current) use of aspirin
CPT/HCPCS: 80053; 82728; 83540; 83550; 84443; 85025; 85046; 85610; 85730; 86850; 86900; 86901; 99284

== ENCOUNTER 2018-04-01 10:55 | Outpatient (CLI) | payer MEDICARE | END 2018-04-01 10:56 | disposition home or self-care (01) | LOC: BURCT 10:55 → BURLAB 10:56 | PROVIDERS: ATTEND Family Medicine | DX: Z01.812 Encounter for preprocedural laboratory examination (principal); M62.830 Muscle spasm of back; R07.89 Other chest pain; R06.09 Other forms of dyspnea; N63.20 Unspecified lump in the left breast, unspecified quadrant; N63.10 Unspecified lump in the right breast, unspecified quadrant; L52 Erythema nodosum | CPT/HCPCS: 36415; 82565 ==

== ENCOUNTER 2018-04-08 17:00 | Observation (INO) | payer MEDICARE ==
[2018-04-08] MEDS ORDERED: Bisacodyl 10 MG SUPP PR PRN (17:54)
[2018-04-08] MEDS ORDERED: Milk Of Magnesia 30 ML UDCUP PO PRN (17:54)
[2018-04-08] MEDS ORDERED: Ondansetron ODT 4 MG TAB PO PRN (17:54)
[2018-04-08] MEDS ORDERED: diphenhydrAMINE 25 MG CAP PO PRN ×2 (17:59→18:53)
[2018-04-08] MEDS ORDERED: Acetaminophen 325 MG TAB PO SCH (18:00)
[2018-04-08] MEDS ORDERED: Furosemide 20 MG/2 ML VIAL SLOW IVP SCH (18:15)
[2018-04-08 18:50] VITALS: BMI 23.3
[2018-04-08] MEDS ORDERED: Furosemide 40 MG TAB PO PRN (18:53)
[2018-04-08] MEDS ORDERED: HYDROcodone/Acetaminophen 5/325 mg Tablet PO PRN (18:53)
[2018-04-08] MEDS ORDERED: PETROLATUM WHITE TOP PRN (18:53)
[2018-04-08] MEDS ORDERED: Lorazepam 0.5 MG TAB PO PRN (18:53)
[2018-04-08 18:55] LABS: #Eosinphils 0.1 thou/uL (0.0-0.7); #Lymphocytes 1.1 thou/uL (1.20-3.40); #Monocytes 0.5 thou/uL (0.11-0.59); #Neutrophils 2.7 thou/uL (1.40-6.50); %Basophils 0.8 % (0.0-1.0); %Eosinophils 1.4 % (0.0-10.0); %Lymphocytes 24.5 % (21.0-51.0); %Monocytes 10.7 % (0.0-10.0); %Neutrophils 62.5 % (42.0-75.0); MDiff Complete? YES; Macrocytosis SLIGHT = 6-15 cells (100X) (0-5/hpf); Mean Corpuscular HGB CONC 31.3 g/dL (32.0-36.0); Mean Corpuscular Hemoglobin 29.2 pg (27.0-31.0); Mean Corpuscular Volume 93.3 fL (78.0-98.0); Microcytosis MODERATE=15-30 cells (100X) (0-5/hpf); Platelet Count 227 thou/uL (130-400); RBC Distribution Width 22.4 % (11.5-14.5); Red Blood Cell (RBC) Count 2.07 mill/uL (4.20-5.40); Tear Drops SLIGHT = 2-5 cells (100X) (0-1/hpf); White Blood Cell (WBC) Count 4.3 thou/uL (4.8-10.8)
[2018-04-08] MEDS ORDERED: Cyanocobalamin 1000 MCG/ML VIAL SC SCH (19:00)
[2018-04-08] MEDS ORDERED: LIDOCAINE TOP PRN (19:45)
[2018-04-08] MEDS ORDERED: Sodium Chloride 0.9% 10 ML ONE (19:53)
[2018-04-08] MEDS: Pregabalin 50 MG CAP PO SCH ×3 (20:31→22:21)
[2018-04-08] MEDS: Cyclobenzaprine 10 MG TAB PO SCH (20:31)
[2018-04-09 03:46] VITALS: BP 109/72; TEMP 98.1
[2018-04-09 08:05] LABS: ALT (SGPT) 10 U/L (8-55); AST (SGOT) 19 U/L (5-34); Albumin 3.3 g/dL (3.4-4.8); Alkaline Phosphatase 59 U/L (40-150); Anion Gap 12 mmol/L (10-20); BUN (Urea Nitrogen) 12 mg/dL (9.8-20.1); Bilirubin, Total 0.4 mg/dL (0.2-1.2); Calc. Creatinine Clearance 69 mL/min (70-130); Carbon Dioxide 26 mmol/L (23-31); Chloride 108 mmol/L (98-107); Estimated GFR-MDRD 78; Globulin 5.1 g/dL (2.4-3.5); Glucose 86 mg/dL (80-115); Potassium 3.5 mmol/L (3.5-5.1); Protein, Total 8.4 g/dL (6.0-8.3); Sodium 142 mmol/L (136-145)
[2018-04-09 08:14] LABS: Hemoglobin 8.5 g/dL (12.0-16.0); Mean Corpuscular Hemoglobin 27.9 pg (27.0-31.0); Platelet Count 217 thou/uL (130-400); RBC Distribution Width 20.7 % (11.5-14.5); Red Blood Cell (RBC) Count 3.05 mill/uL (4.20-5.40); White Blood Cell (WBC) Count 3.7 thou/uL (4.8-10.8)
[2018-04-09] MEDS ORDERED: Sodium Chloride 0.9% 500 ML IV SCH (08:15)
[2018-04-09 08:38] LABS: Band 1 % (5-11); Eosinophils 1 % (0-10); Lymphocytes 31 % (21-51); MDiff Complete? YES; Monocytes 9 % (0-10); Neutrophil 58 % (42-75); PLT Morphology Comment Appears Adequate; RBC Morphology Normal
[2018-04-09] MEDS: Pregabalin 50 MG CAP PO SCH (08:42)
[2018-04-09] MEDS: Cyclobenzaprine 10 MG TAB PO SCH (08:43)
[2018-04-09] MEDS ORDERED: Ferrous Gluconate 324 MG TAB PO SCH (09:00)
[2018-04-09] MEDS ORDERED: Folic Acid 1 MG TAB PO SCH (09:00)
[2018-04-09] MEDS ORDERED: Atorvastatin Calcium 10 MG TAB PO SCH (09:00)
[2018-04-09] MEDS ORDERED: Amlodipine 5 MG TAB PO SCH (09:00)
[2018-04-09] MEDS ORDERED: Senokot S 8.6-50 MG TAB PO SCH (09:00)
[2018-04-09] MEDS ORDERED: Multivitamin W/ Minerals 1 TAB PO SCH (09:00)
[2018-04-09] MEDS ORDERED: Aspirin 81 mg Enteric Coated Tablet PO SCH (09:00)
--- NOTE | 2018-04-09 10:46 | CT ---
CT CHEST WITH CONTRAST: HISTORY: Pulmonary nodules. Chest pain. COMPARISON: CT 05/07/2017. FINDINGS: No suspicious pulmonary nodule. No pneumothorax. No effusion. There is are multiple thyroid nodules, the largest in the right lobe of the thyroid with peripheral c alcification. No adenopathy. The pulmonary trunk is enlarged measuring 35 mm. There are stellate-type calcificati ons within both breasts, incompletely evaluated. Small sliding hiatal hernia. Aortic contour is nonaneurysmal. No thoracic spine compression fracture. Moderate degenerative changes of the visualized lower cervic al spine. No suspicious rib fracture. IMPRESSION: 1. No acute intrathoracic abnormality. 2. No suspicious pulmonary nodule. 3. Multiple thyroid nodules, the largest in the right lobe of the thyroid. A nonemergent thyroid ul trasound is recommended. 4. Stellate-type calcifications within both breasts. Recommend correlation with patient's mammogram . If the patient has not had a recent mammogram, a diagnostic mammogram may be helpful. 5. Dilatation of the pulmonary trunk can be seen with pulmonary arterial hypertension. POS: [facility]
--- NOTE | 2018-04-09 12:20 | SS ---
DATE OF ADMISSION: 04/09/2018 DATE OF DISCHARGE: 04/09/2018 ADMISSION DIAGNOSES: Chronic anemia. SECONDARY DIAGNOSES: Myelodysplastic syndrome, lupus, hypertension, hyperlipidemia, chronic obstructive pulmonary disease, fibromyalgia. Thyroid nodules, breast calcifications and pulmonary hypertension. PROCEDURES: Chest CT 04/09/2018 shows no acute intrathoracic abnormality. No suspicious pulmonary nodule, multiple thyroid nodules, the largest in the right lobe of the thyroid, nonemergent thyroid ultrasound is recommended. Stellate type calcifications within both breasts. Recommend correlation with patient's mammogram. If the patient has not had a recent mammogram, a diagnostic mammogram may be helpful and dilatation of the pulmonary trunk can be seen with pulmonary arterial hypertension. HOSPITAL COURSE: A 68-year-old female with a history of chronic anemia related to myelodysplastic syndrome. She had labs obtained via her curriculum advisory teacher/ oncologist, Dr. Rizzo with resultant hemoglobin of 6.0, prompting her admission here for packed red blood cell transfusion. The patient has subsequently received 2 units of packed red blood cells with improvement of her hemoglobin from 6.0 to 8.5. The patient did not report to be feeling particularly symptomatic at the time of her initial hemoglobin reading; however , does report to feel improved after the transfusion. In the outpatient setting the patient had a recent order for a CT scan of her chest secondary to complaints of pain and palpable nodules; however, this was unable to be obtained secondary to lack of ability to obtain IV access at the time. Due to her current IV access, it was decided to proceed with the planned CT scan of the chest which had been ordered via her primary care physician, Dr. Stevneson. The results of this CT scan study are as above. At this time, the patient is amenable to return home after normalization of her hemoglobin status which is close to her baseline of around 9. DISPOSITION: The patient may follow up with her primary care physician, Dr. Stevenson, within the next week. She can further follow up with Dr. Rizzo, Hematology/Oncology. DISCHARGE MEDICATIONS: No medication changes have been made. She will continue vit b12 1000mcg monthly, xopenex nebs, aspirin 81 mg p.o. daily, [place]ergon 325 mg p.o. b.i.d., Flonase, Lasix 40 mg p.o. daily, Amlodipine 10mg daily, Atorvastatin 10mg qhs, lorazepam 0.5 mg q6h prn, anoro 62.5-.25 dailyNorco 5/325 q.8 hours p.r.n., Atarax 25 mg p.o. q.i.d. p.r.n., multivitamin , Zestril 20 mg p.o. daily, Nitro-Dur b.i.d. p.r.n., Zofran sublingual q.6 hours p.r.n., Protonix 40 mg p.o. daily, Klor-Con 10 mEq p.o. daily, prednisone 5 mg p.o. daily, Lyrica 25 mg p.o. t.i.d., Zoloft 100 mg p.o. daily; folic acid 1mg daily MTDD
== END 2018-04-09 14:20 | disposition home or self-care (01) ==
LOC: BURMED 17:00
PROVIDERS: ADMIT Family Medicine; ATTEND Family Medicine
DX: D46.9 Myelodysplastic syndrome, unspecified (principal); D63.0 Anemia in neoplastic disease; E78.5 Hyperlipidemia, unspecified; J44.9 Chronic obstructive pulmonary disease, unspecified; M79.7 Fibromyalgia; I10 Essential (primary) hypertension; I27.20 Pulmonary hypertension, unspecified; Z79.82 Long term (current) use of aspirin; Z79.899 Other long term (current) drug therapy; Z88.5 Allergy status to narcotic agent; Z91.040 Latex allergy status
CPT/HCPCS: 36415; 36430; 71260; 80053; 85025; 86850; 86900; 86901; 86922; G0378; G0379; J1940; J7620; P9016

== ENCOUNTER 2018-04-28 17:33 | Emergency (ER) | payer MEDICARE ==
[2018-04-28] MEDS ORDERED: Oxymetazoline HCl 0.05% ( 15 ML ) ONE (17:40)
[2018-04-28 18:13] LABS: #Eosinphils 0.1 thou/uL (0.0-0.7); #Lymphocytes 1.2 thou/uL (1.20-3.40); #Monocytes 0.6 thou/uL (0.11-0.59); #Neutrophils 2.7 thou/uL (1.40-6.50); %Basophils 0.7 % (0.0-1.0); %Lymphocytes 26.8 % (21.0-51.0); %Monocytes 11.9 % (0.0-10.0); %Neutrophils 58.6 % (42.0-75.0); Hemoglobin 8.1 g/dL (12.0-16.0); Mean Corpuscular HGB CONC 30.6 g/dL (32.0-36.0); Mean Corpuscular Hemoglobin 27.9 pg (27.0-31.0); Mean Corpuscular Volume 91.1 fL (78.0-98.0); Mean Platelet Volume 5.9 fL (7.4-10.4); Platelet Count 158 thou/uL (130-400); RBC Distribution Width 18.1 % (11.5-14.5); Red Blood Cell (RBC) Count 2.89 mill/uL (4.20-5.40); White Blood Cell (WBC) Count 4.6 thou/uL (4.8-10.8)
[2018-04-28] MEDS ORDERED: Amoxicillin/Potassium Clav 875 MG TAB ONE (18:20)
== END 2018-04-28 18:30 | disposition home or self-care (01) ==
LOC: BURERS 17:33
DX: R04.0 Epistaxis (principal); D64.9 Anemia, unspecified; J44.9 Chronic obstructive pulmonary disease, unspecified; M10.9 Gout, unspecified; I10 Essential (primary) hypertension; F41.9 Anxiety disorder, unspecified; F17.210 Nicotine dependence, cigarettes, uncomplicated; Z79.899 Other long term (current) drug therapy
CPT/HCPCS: 30903; 36415; 85025

== ENCOUNTER 2018-04-28 20:31 | Observation (INO) | payer MEDICARE ==
[2018-04-28] MEDS ORDERED: HYDROcodone/Acetaminophen 5/325 mg Tablet ONE (22:26)
[2018-04-28] MEDS ORDERED: Ondansetron PF 4 MG/2 ML Vial IVP PRN (23:05)
[2018-04-28] MEDS ORDERED: Acetaminophen 325 MG TAB PO PRN (23:05)
[2018-04-28] MEDS ORDERED: Ondansetron ODT 4 MG TAB SL PRN (23:05)
[2018-04-29] MEDS: HYDROcodone/Acetaminophen 5/325 mg Tablet PO PRN (03:38)
[2018-04-29 05:38] LABS: Anisocytosis SLIGHT = 6-15 cells (100X) (0-5/hpf); Band 4 % (5-11); Eosinophils 4 % (0-10); Hemoglobin 8.4 g/dL (12.0-16.0); Lymphocytes 29 % (21-51); MDiff Complete? YES; Mean Corpuscular HGB CONC 32.2 g/dL (32.0-36.0); Mean Corpuscular Hemoglobin 28.5 pg (27.0-31.0); Mean Corpuscular Volume 88.7 fL (78.0-98.0); Mean Platelet Volume 7.8 fL (7.4-10.4); Monocytes 11 % (0-10); Neutrophil 52 % (42-75); Ovalocytes SLIGHT = 2-5 cells (100X) (0-1/hpf); PLT Morphology Comment Appears Adequate; Platelet Count 153 thou/uL (130-400); RBC Distribution Width 17.3 % (11.5-14.5); Red Blood Cell (RBC) Count 2.93 mill/uL (4.20-5.40); Tear Drops SLIGHT = 2-5 cells (100X) (0-1/hpf); Vacuoles SLIGHT; White Blood Cell (WBC) Count 3.3 thou/uL (4.8-10.8)
[2018-04-29] MEDS ORDERED: HYDROcodone/Acetaminophen 5/325 mg Tablet PO PRN (07:35)
[2018-04-29] MEDS ORDERED: hydrOXYzine 25 MG TAB PO PRN (07:35)
[2018-04-29] MEDS ORDERED: Lorazepam 0.5 MG TAB PO PRN (07:35)
[2018-04-29] MEDS ORDERED: PETROLATUM WHITE TOP PRN (07:35)
[2018-04-29] MEDS ORDERED: Furosemide 40 MG TAB PO PRN (07:35)
[2018-04-29] MEDS ORDERED: Lidocaine 2% Jelly 5 ML TUBE TOP PRN (07:35)
[2018-04-29] MEDS ORDERED: Albuterol Sulfate 2.5 mg/3 ml Neb NEB PRN (08:00)
[2018-04-29] MEDS: Acetaminophen 325 MG TAB PO PRN (08:07)
[2018-04-29] MEDS: Cyanocobalamin 1000 MCG/ML VIAL SC SCH (08:13)
[2018-04-29] MEDS: Cyclobenzaprine 10 MG TAB PO SCH (08:14)
[2018-04-29] MEDS: Atorvastatin Calcium 10 MG TAB PO SCH (08:14)
[2018-04-29] MEDS: Ferrous Gluconate 324 MG TAB PO SCH (08:14)
[2018-04-29] MEDS: Folic Acid 1 MG TAB PO SCH (08:14)
--- NOTE | 2018-04-29 08:15 | HP ---
DATE OF OBS ADMISSION and DISCHARGE: 04/29/2018 CHIEF COMPLAINT: Epistaxis HISTORY OF PRESENT ILLNESS: A 68-year-old female with history of myelodysplastic syndrome and related chronic anemia who presented to [facility] with complaints of epistaxis from the left naris beginning yesterday around 2:30 in the afternoon with continuous intermittent bleeding thereafter. A Rhinorocket was placed to the left nostril to alleviate this issue and she was subsequently sent back home. The patient represented with further bleeding seeping around the placement of the Rhinorocket. Due to this, she was admitted for observation with the intent to schedule her to follow up with ENT today for hopeful cauterization. The patient has had a similar occurrence previously involving the right naris several months ago for which a cauterization was performed by her ENT, Dr. Jaffe; she had a second cauterization done via Dr. Jack as well. The patient's hemoglobin is notably stable at 8.4, which is around her baseline. She is otherwise in her usual state of health with no other new concerns. PAST MEDICAL HISTORY: Iron deficiency anemia, pernicious anemia, chronic obstructive pulmonary disease, hypertension, depression, gout, venous insufficiency of lower extremities, Raynaud's phenomenon, chronic pain, gastroesophageal reflux disease, fibromyalgia, lupus, history of GI bleed in 2013. PAST SURGICAL HISTORY: Status post left total knee arthroplasty, status post total left hip arthroplasty, bilateral breast biopsies, EGD with normal findings in 2013. SOCIAL HISTORY: No ETOH or illicit drug use. She is a nonsmoker. FAMILY HISTORY: Noncontributory. CURRENT MEDICATIONS: Omeprazole 40 mg p.o. daily, Xopenex 1.25 mg per 3 mL, nebs q.8 hours p.r.n., Senokot, docusate sodium 8.6/50 mg at bedtime p.r.n., ferrous gluconate 324 mg p.o. daily, amlodipine 10 mg p.o. daily, monthly cyanocobalamin 1000 mcg per mL injection, folic acid 1 mg p.o. daily, prednisone 5 mg p.o. daily, Theragran-M 1 tablet p.o. daily, Lyrica 50 mg p.o. daily, metaxalone 800 mg p.o. t.i.d. p.r.n., Zoloft 100 mg p.o. daily, hydroxyzine 25 mg 2 tabs p.o. at bedtime, atorvastatin 10 mg p.o. at bedtime, tramadol 50 mg p.o. q.6 hours p.r.n., lorazepam 0.5 mg p.o. q.6 hours p.r.n., Anoro Ellipta 62.2-25 mcg 1 inhalation daily, Lasix 40 mg p.o. daily p.r.n. REVIEW OF SYSTEMS: GENERAL: The patient denies fever or chills. ENT: Complains of epistaxis. CARDIOVASCULAR: Denies chest pain or palpitations. RESPIRATORY: Denies shortness of breath or cough. GASTROINTESTINAL: Denies abdominal pain, nausea, vomiting, diarrhea or constipation. GENITOURINARY: Denies dysuria. MUSCULOSKELETAL: Complains of chronic joint pain. DERMATOLOGIC: Denies rash. NEUROLOGIC: Denies headache. LABORATORY DATA: Hemoglobin stable at 8.4, hematocrit of 26. PHYSICAL EXAMINATION: VITAL SIGNS: Temperature is 98.0, pulse of 79, blood pressure 153/70, respiratory rate is 20, oxygen is 98% on room air. GENERAL: Alert and oriented, in no acute distress. HEENT: Normocephalic and atraumatic. Rhinorocket to the left nostril. Moist mucous membranes. Extraocular muscles are intact bilaterally. NECK: Supple, with no lymphadenopathy. CARDIAC: Regular rate and rhythm, 2/6 systolic ejection murmur. RESPIRATORY: Clear to auscultation bilaterally without wheezes, rales or rhonchi. ABDOMEN: Soft, nontender to palpation. EXTREMITIES: No clubbing, cyanosis or edema. SKIN: No rashes. NEUROLOGIC: Nonfocal with cranial nerves II-XII grossly intact. ASSESSMENT AND PLAN: 1. Epistaxis. The patient has a Rhinorocket in place to the left naris. She is to have a scheduled followup with ENT today for potential cauterization. 2. Chronic anemia. The patient's hemoglobin is stable at her baseline with no need for transfusion. 3. Hypertension. She is hemodynamically stable. We will resume her usual blood pressure medications. 4. Chronic obstructive pulmonary disease. We will resume the patient's usual medications. She is stable on room air. 5. Chronic pain with fibromyalgia. Resume the patient's p.r.n. pain medications. 6. Prophylaxis. We will resume the patient's PPI. We will hold her aspirin secondary to epistaxis. CODE STATUS: FULL. DISCHARGE NOTE: Patient has been set up to be seen by [facility] ENT at 1100 today and thus will be discharged accordingly. She is hemodynamically stable with hemoglobin at her baseline. [facility]
[2018-04-29] MEDS: Multivitamin W/ Minerals 1 TAB PO SCH (08:19)
[2018-04-29] MEDS: Pregabalin 50 MG CAP PO SCH (08:20)
[2018-04-29] MEDS: Amlodipine 5 MG TAB PO SCH (08:27)
[2018-04-29] MEDS: Senokot S 8.6-50 MG TAB PO SCH (08:39)
[2018-04-29 10:01] VITALS: BP 161/73
[2018-04-29 10:12] VITALS: TEMP 98.7
== END 2018-04-29 09:15 | disposition home or self-care (01) ==
LOC: BURERS 20:31 → BURMED 21:48
PROVIDERS: ADMIT Family Medicine; ATTEND Family Medicine
DX: R04.0 Epistaxis (principal); D46.9 Myelodysplastic syndrome, unspecified; J44.9 Chronic obstructive pulmonary disease, unspecified; F32.9 Major depressive disorder, single episode, unspecified; I10 Essential (primary) hypertension; M10.9 Gout, unspecified; K21.9 Gastro-esophageal reflux disease without esophagitis; M79.7 Fibromyalgia; M32.9 Systemic lupus erythematosus, unspecified; D50.9 Iron deficiency anemia, unspecified; Z79.899 Other long term (current) drug therapy; Z79.52 Long term (current) use of systemic steroids; Z88.5 Allergy status to narcotic agent; Z91.040 Latex allergy status

== ENCOUNTER 2018-05-20 08:34 | Outpatient (CLI) | payer MEDICARE ==
--- NOTE | 2018-05-21 07:29 | ULT ---
THYROID ULTRASOUND: Date: 05-20-18 Ultrasonography of the thyroid gland was performed. Comparison: Carotid doppler, 05-08-17 that noted thyroid nodules and suggested a dedicated study. I d o not see any studies between then and now. FINDINGS: The thyroid is quite large. The right lobe measures 5.7 x 2.5 x 2.5 cm. There are at least four compl ex nodules within it. The smaller ones are in the superior pole measuring 0.7 cm and 0.9 cm. One is m ore in the midportion of the lobe measuring 2.9 cm in size. One is in the lower pole measuring 2.1 cm . The 2017 scan of the carotids demonstrated a 3 cm complex nodule in this lobe. The left lobe is als o large measuring 5.3 x 2.1 x 1.9 cm. There are two complex nodules in it. One measures 1.2 cm in siz e near the junction of the upper and middle thirds and the other is 1.8 cm wide in the lower pole. No surrounding adenopathy was shown. IMPRESSION: Marked thyroid enlargement with multiple complex nodules seen bilaterally. Statistically, the finding s are consistent with a multi-nodular goiter. Ultrasound cannot rule out neoplastic change in any giv en nodule, however. POS: [facility]
--- NOTE | 2018-05-21 07:30 | ULT ---
NONVASCULAR ULTRASOUND OF THE RIGHT UPPER EXTREMITY: Date: 05-20-18 Technique: Multiple ultrasound images through a palpable mass in the posterior right arm were submitt ed. FINDINGS: There is a poorly defined area that correlates with the palpable mass which measures about 3.9 x 1.5 x 3.3 cm. It is mostly isoechoic with surrounding muscle, though there are some low density component s in it. I did not appreciate significant blood flow when the vascular probe was placed. The ultrasou nd does not allow any confident diagnosis of what the abnormality is other than to confirm that is a mixed density mass. IMPRESSION: 3.9 x 1.5 x 3.3 cm poorly defined mass in the soft tissues of the posterior arm. MRI would be best to characterize it further and assess where it rises from and its potential significance. Code T POS: SUKHI
== END 2018-05-20 08:35 | disposition home or self-care (01) ==
LOC: BURULT 08:34
PROVIDERS: ATTEND Family Medicine
DX: E04.1 Nontoxic single thyroid nodule (principal); R22.31 Localized swelling, mass and lump, right upper limb; E04.2 Nontoxic multinodular goiter
CPT/HCPCS: 76536; 76882

== ENCOUNTER 2019-01-18 19:38 | Emergency (ER) | payer MEDICARE | END 2019-01-18 19:55 | disposition home or self-care (01) | LOC: BURERS 19:38 | DX: S80.811A Abrasion, right lower leg, initial encounter (principal); J44.9 Chronic obstructive pulmonary disease, unspecified; M10.9 Gout, unspecified; K21.9 Gastro-esophageal reflux disease without esophagitis; I10 Essential (primary) hypertension; D64.9 Anemia, unspecified; F41.9 Anxiety disorder, unspecified; F17.210 Nicotine dependence, cigarettes, uncomplicated; Z79.899 Other long term (current) drug therapy; W25.XXXA Contact with sharp glass, initial encounter | CPT/HCPCS: 99282 ==

== ENCOUNTER 2019-01-19 11:23 | Emergency (ER) | payer MEDICARE ==
[2019-01-19] MEDS ORDERED: Lidocaine 1% PF 5 ML VIAL ONE (11:31)
--- NOTE | 2019-01-19 12:05 | RAD ---
EXAM: XR Tib Fib Rt Leg 2 View PROVIDED CLINICAL HISTORY: Pain FINDINGS: There is no evidence for fracture or other acute osseous abnormality. Alignment appears anatomic. Bianka nt spaces appear preserved. No evidence for radiopaque foreign body. Postoperative changes of right total knee arthroplasty are partially visualized. IMPRESSION: No evidence for an acute osseous abnormality. If there is persistent clinical concern, conservative m anagement and follow-up imaging advised.
== END 2019-01-19 12:10 | disposition home or self-care (01) ==
LOC: BURERS 11:23
DX: S81.811A Laceration without foreign body, right lower leg, initial encounter (principal); J44.9 Chronic obstructive pulmonary disease, unspecified; M10.9 Gout, unspecified; K21.9 Gastro-esophageal reflux disease without esophagitis; I10 Essential (primary) hypertension; D64.9 Anemia, unspecified; F41.9 Anxiety disorder, unspecified; F17.210 Nicotine dependence, cigarettes, uncomplicated; Z79.899 Other long term (current) drug therapy; Z79.82 Long term (current) use of aspirin; Z79.51 Long term (current) use of inhaled steroids; W25.XXXA Contact with sharp glass, initial encounter
CPT/HCPCS: 12001; J2001

== ENCOUNTER 2019-01-22 12:02 | Inpatient (IN) | payer MEDICARE ==
[2019-01-22] MEDS ORDERED: HYDROcodone/Acetaminophen 5/325 mg Tablet PO PRN (12:51)
[2019-01-22] MEDS ORDERED: Bisacodyl 10 MG SUPP PR PRN (12:51)
[2019-01-22] MEDS ORDERED: Acetaminophen 325 MG TAB PO PRN ×2 (12:51→15:32)
[2019-01-22] MEDS ORDERED: Ondansetron ODT 4 MG TAB PO PRN (12:51)
[2019-01-22] MEDS ORDERED: Sodium Chloride 0.9% 500 ML IV SCH (13:00)
[2019-01-22 14:08] LABS: #Lymphocytes 0.8 thou/uL (1.20-3.40); #Monocytes 0.2 thou/uL (0.11-0.59); #Neutrophils 3.4 thou/uL (1.40-6.50); %Basophils 0.6 % (0.0-1.0); %Eosinophils 0.7 % (0.0-10.0); %Lymphocytes 17.5 % (21.0-51.0); %Monocytes 5.2 % (0.0-10.0); Hemoglobin 7.1 g/dL (12.0-16.0); Hypochromia SLIGHT = 6-15 cells (100X) (0-5/hpf); MDiff Complete? YES; Mean Corpuscular HGB CONC 29.5 g/dL (32.0-36.0); Mean Corpuscular Hemoglobin 28.6 pg (27.0-31.0); Mean Platelet Volume 6.1 fL (7.4-10.4); Platelet Count 228 thou/uL (130-400); RBC Distribution Width 17.3 % (11.5-14.5); Red Blood Cell (RBC) Count 2.46 mill/uL (4.20-5.40); White Blood Cell (WBC) Count 4.5 thou/uL (4.8-10.8)
[2019-01-22 14:16] LABS: ALT (SGPT) Less than 7 U/L (8-55); AST (SGOT) 15 U/L (5-34); Albumin 3.8 g/dL (3.4-4.8); Alkaline Phosphatase 71 U/L (40-150); Anion Gap 16 mmol/L (10-20); BUN (Urea Nitrogen) 11 mg/dL (9.8-20.1); Bilirubin, Total 0.4 mg/dL (0.2-1.2); Calc. Creatinine Clearance 75 mL/min (70-130); Calcium 9.2 mg/dL (7.8-10.44); Carbon Dioxide 24 mmol/L (23-31); Chloride 105 mmol/L (98-107); Estimated GFR-MDRD 74; Globulin 4.8 g/dL (2.4-3.5); Glucose 104 mg/dL (80-115); Potassium 3.5 mmol/L (3.5-5.1); Protein, Total 8.6 g/dL (6.0-8.3); Sodium 141 mmol/L (136-145)
[2019-01-22] MEDS ORDERED: Cyclobenzaprine 10 MG TAB PO PRN (15:32)
[2019-01-22] MEDS ORDERED: Senokot S 8.6-50 MG TAB PO PRN (15:32)
[2019-01-22] MEDS ORDERED: Furosemide 40 MG TAB PO PRN (15:32)
[2019-01-22] MEDS ORDERED: PETROLATUM WHITE TOP PRN (15:32)
[2019-01-22] MEDS ORDERED: hydrOXYzine 25 MG TAB PO PRN (15:32)
[2019-01-22] MEDS ORDERED: Albuterol Sulfate 2.5 mg/3 ml Neb NEB PRN (15:32)
[2019-01-22] MEDS ORDERED: Cyanocobalamin 1000 MCG/ML VIAL SC SCH (15:45)
[2019-01-22] MEDS: Sodium Chloride 0.9% 1,000 ML IV SCH ×2 (18:00→23:07)
[2019-01-22 20:28] LABS: Bilirubin Negative (Negative); Blood, Urine Negative (Negative); Clarity Clear (Clear); Glucose, Urine (Dipstick) Negative (Negative); Leukocyte Negative (Negative); Nitrite Negative (Negative); Protein, Urine (Dipstick) Trace mg/dL (Neg-Trace); Urobilinogen 0.2 mg/dL (Less than 2)
[2019-01-22 20:39] LABS: RBC/HPF 0-3 HPF (0-3); Squamous Epithelial 0-3 HPF (0-3); WBC/HPF 0-3 HPF (0-3)
[2019-01-22 20:40] LABS: Bacteria/HPF Rare-Few HPF (None Seen)
[2019-01-22] MEDS: Famotidine 20 MG TAB PO SCH (21:21)
[2019-01-22] MEDS: Ferrous Gluconate 324 MG TAB PO SCH (21:22)
[2019-01-22] MEDS: LYRICA 25 MG PO SCH (22:37)
[2019-01-23 05:25] LABS: Hemoglobin 5.9 g/dL (12.0-16.0); Mean Corpuscular HGB CONC 28.4 g/dL (32.0-36.0); Mean Corpuscular Hemoglobin 27.9 pg (27.0-31.0); Mean Corpuscular Volume 97.9 fL (78.0-98.0); Mean Platelet Volume 5.5 fL (7.4-10.4); Platelet Count 203 thou/uL (130-400); White Blood Cell (WBC) Count 3.6 thou/uL (4.8-10.8)
[2019-01-23 05:28] LABS: #Basophils 0.1 thou/uL (0.0-0.2); #Eosinphils 0.1 thou/uL (0.0-0.7); #Lymphocytes 0.9 thou/uL (1.20-3.40); #Monocytes 0.5 thou/uL (0.11-0.59); %Basophils 1.8 % (0.0-1.0); %Eosinophils 1.6 % (0.0-10.0); %Lymphocytes 25.5 % (21.0-51.0); %Monocytes 12.9 % (0.0-10.0); %Neutrophils 58.2 % (42.0-75.0)
[2019-01-23] MEDS ORDERED: Acetaminophen 325 MG TAB PO SCH (05:45)
[2019-01-23] MEDS ORDERED: Furosemide 20 MG/2 ML VIAL SLOW IVP SCH (05:45)
[2019-01-23] MEDS ORDERED: diphenhydrAMINE 25 MG CAP PO SCH (05:45)
[2019-01-23] MEDS: Ferrous Gluconate 324 MG TAB PO SCH ×2 (08:55→20:39)
[2019-01-23] MEDS: Folic Acid 1 MG TAB PO SCH (08:55)
[2019-01-23] MEDS: Atorvastatin Calcium 10 MG TAB PO SCH (08:55)
[2019-01-23] MEDS: Multivitamin W/ Minerals 1 TAB PO SCH (08:55)
[2019-01-23] MEDS: Famotidine 20 MG TAB PO SCH ×2 (08:55→20:39)
[2019-01-23] MEDS: predniSONE 10 MG TAB PO SCH (08:56)
[2019-01-23] MEDS: Amlodipine 5 MG TAB PO SCH (08:56)
[2019-01-23] MEDS ORDERED: Prevnar 13-Val Conj/PF 0.5 ML SYRINGE IM ONE (09:00)
[2019-01-23] MEDS ORDERED: Aspirin Chewable 81 MG TAB PO SCH (09:00)
[2019-01-23] MEDS: LYRICA 25 MG PO SCH ×3 (09:02→20:40)
[2019-01-23] MEDS: Sodium Chloride 0.9% 1,000 ML IV SCH (09:03)
[2019-01-23 14:12] LABS: Hemoglobin 8.8 g/dL (12.0-16.0)
[2019-01-23] MEDS: HYDROcodone/Acetaminophen 10/325 mg Tablet PO PRN (20:37)
[2019-01-23] MEDS: Nicotine 14 MG PATCH TOP SCH (20:39)
[2019-01-24 05:31] LABS: #Lymphocytes 0.9 thou/uL (1.20-3.40); #Monocytes 0.4 thou/uL (0.11-0.59); #Neutrophils 2.2 thou/uL (1.40-6.50); %Basophils 0.4 % (0.0-1.0); %Eosinophils 1.3 % (0.0-10.0); %Lymphocytes 24.9 % (21.0-51.0); %Monocytes 9.9 % (0.0-10.0); %Neutrophils 63.5 % (42.0-75.0); Hemoglobin 8.9 g/dL (12.0-16.0); Mean Corpuscular HGB CONC 31.3 g/dL (32.0-36.0); Mean Corpuscular Hemoglobin 29.1 pg (27.0-31.0); Mean Corpuscular Volume 92.8 fL (78.0-98.0); Mean Platelet Volume 5.3 fL (7.4-10.4); Platelet Count 200 thou/uL (130-400); RBC Distribution Width 16.6 % (11.5-14.5); Red Blood Cell (RBC) Count 3.05 mill/uL (4.20-5.40); White Blood Cell (WBC) Count 3.5 thou/uL (4.8-10.8)
[2019-01-24] MEDS: Amlodipine 5 MG TAB PO SCH (08:16)
[2019-01-24] MEDS: Multivitamin W/ Minerals 1 TAB PO SCH (08:17)
[2019-01-24] MEDS: predniSONE 10 MG TAB PO SCH (08:17)
[2019-01-24] MEDS: Famotidine 20 MG TAB PO SCH ×2 (08:18→20:29)
[2019-01-24] MEDS: Atorvastatin Calcium 10 MG TAB PO SCH (08:18)
[2019-01-24] MEDS: Ferrous Gluconate 324 MG TAB PO SCH ×2 (08:18→20:29)
[2019-01-24] MEDS: LYRICA 25 MG PO SCH ×3 (08:19→20:30)
[2019-01-24] MEDS: Folic Acid 1 MG TAB PO SCH (08:19)
[2019-01-24] MEDS: HYDROcodone/Acetaminophen 10/325 mg Tablet PO PRN ×2 (09:40→21:57)
[2019-01-24] MEDS: Nicotine 14 MG PATCH TOP SCH (20:27)
[2019-01-24] MEDS: hydrOXYzine 25 MG TAB PO SCH (20:30)
--- NOTE | 2019-01-25 00:07 | HP ---
CHIEF COMPLAINT: Dizziness/lightheadedness. HISTORY OF PRESENT ILLNESS: Ms. Granado is a 68-year-old female, who presented to the emergency room on January 19 after lacerating her right lateral calf on a piece of broken glass in her garbage. She actually presented back twice for bleeding and was worked up, which included bedside ultrasound and an x-ray to rule out retained glass. During that last visit, the wound was glued with Dermabond for hemostasis and a Steri-Strip was applied. However, the patient continued to have bleeding from the wound and presented for emergency room to followup on January 21 in my clinic. At that point, the Steri-Strip was saturated and the patient's home bandage was removed and was re-bandaged with 4 x 4 and tape. CBC performed showed hemoglobin of 7.1. The patient with a history of multifactorial anemia which included folic acid, B12, iron deficiency, as well as anemia of chronic disease secondary to systemic lupus erythematosus. She has had transfusions in the past but at this point, does not get transfused unless her hemoglobin drops below 7 or she is symptomatic otherwise. The patient denied lightheadedness at that visit. However, the following day, the patient started to have some lightheadedness and continued with the bleeding, presented back to my clinic. Therefore, she was admitted for lightheadedness and dizziness with suspected symptomatic anemia that might need transfusion and appearing to be dehydrated with tenting of the skin and the patient admitting that she had not been keeping up with her water consumption. PAST MEDICAL HISTORY: 1. Iron-deficiency anemia. 2. Pernicious anemia. 3. Folate deficiency. 4. Anemia of chronic disease. 5. Recurrent epistaxis requiring ENT cauterization. 6. Coagulopathy with prolonged PTT of greater than 100 seconds in the past with PT and INR in normal range. 7. COPD. 8. Hypertension. 9. Depression. 10. Gout. 11. Venous insufficiency of the lower extremities. 12. Raynaud phenomenon. 13. Erythema nodosum. 14. 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 15. Gastroesophageal reflux disease. 16. Fibromyalgia. 17. Systemic lupus erythematosus. 18. History of GI bleed in 2013. 19. Osteoarthritis. 20. Tobacco abuse. 21. Hyperlipidemia. 22. Intermittent dependent edema. 23. Insomnia/anxiety. 24. Steroid dependent on chronic prednisone therapy. 25. Multinodular goiter. 26. Pulmonary hypertension. 27. Chronic kidney disease stage 3, followed by Dr. Dutton. 28. Bladder incontinence, followed by Dr. Biggs. PAST SURGICAL HISTORY: 1. Left total knee arthroplasty. 2. Left hip arthroplasty. 3. Bilateral breast biopsies which were benign. 4. EGD with normal findings in 2014. 5. Back surgery. 6. Right total knee arthroplasty, 2014. FAMILY HISTORY: Her father was from heart problems and renal failure. She has a daughter, who is alive and healthy. Her mother was from heart problems. She has two brothers and one sister, they are . SOCIAL HISTORY: The patient is a current smoker and approximately half a pack a day. She denies alcohol or illicit drug use. She lives alone but has a care provider, who does housework for her. She is normally ambulatory with walker assist and she has a Life Alert monitor as well. ALLERGIES: TO CODEINE. REVIEW OF SYSTEMS: GENERAL: Denies fever. Positive weakness, fatigue, lethargy. OPHTHALMOLOGIC: The patient denies any vision changes, diplopia, eye pain, or blurred vision. ENT: The patient denies sore throat, epistaxis, rhinorrhea, or ear pain. CARDIOVASCULAR: The patient denies chest pain, palpitations, orthopnea, or PND. RESPIRATORY: The patient denies shortness of breath, wheezing, dyspnea on exertion above her baseline, or hemoptysis. GI: The patient denies diarrhea, constipation, nausea, vomiting, abdominal pain, melena, or hematochezia. She does have dark stools due to taking iron therapy chronically. GENITOURINARY: Denies dysuria. Positive history of incontinence. No gross hematuria. LYMPHATIC: The patient denies any swelling recently. HEMATOLOGIC: The patient has bleeding wound to the leg, but denies any other source of bleeding as she has an existing chronic coagulopathy. PSYCHIATRIC: The patient with history of anxiety, insomnia and depression, but all seem to be well controlled at this time per patient. She denies any suicidal ideation. NEUROLOGIC: The patient denies any numbness, tingling, or focal weakness. Reports generalized weakness. Intermittent headaches. MEDICATIONS: 1. Vitamin B12 injections every 30 days, 1000 mcg. 2. Lidocaine 5% ointment one application topically q.i.d. p.r.n. pain. 3. Prednisone 5 mg p.o. daily. 4. Aspirin 81 mg one p.o. daily. 5. Hydrocodone 5/325 one p.o. q.8 hours p.r.n. severe pain. 6. Acetaminophen 650 mg p.o. q.6 hours p.r.n. 7. Xopenex 1.25 mg nebulized q.8 hours p.r.n. 8. Atorvastatin one p.o. daily 10 mg. 9. Ferrous gluconate 324 mg p.o. b.i.d. 10. Vaseline topically as directed p.r.n. 11. Theragran-M Premier one p.o. daily. 12. Flexeril 10 mg t.i.d. p.r.n. 13. Folic acid 1 mg p.o. daily. 14. Furosemide 40 mg p.o. daily p.r.n. edema. 15. Amlodipine 10 mg p.o. daily. 16. Omeprazole 40 mg p.o. daily. 17. Lyrica 25 mg p.o. t.i.d. 18. Senokot-S one p.o. daily p.r.n. 19. Zoloft 200 mg p.o. daily. 20. Anoro Ellipta 62.5/25 mcg inhaled daily. 21. Hydroxyzine two p.o. daily p.r.n. insomnia or anxiety, 25 mg. PHYSICAL EXAMINATION: VITAL SIGNS: Temp 98.2, pulse 82, respirations 20, 96% O2 saturation on room air, and blood pressure of 140/64. GENERAL: Well-developed, chronically ill-appearing, female, who is alert and oriented x4, ambulating slowly with walker assist, in no acute distress. HEENT: Normocephalic, atraumatic. Pupils equally round and reactive to light and accommodation. Extraocular muscles intact. Nares are patent without discharge. Tongue protrudes in the midline. The patient is without dentures and has poor dentition. Tympanic membranes are clear and nondistorted bilaterally without erythema or effusion of the middle ear. OP is clear. NECK: Supple. No lymphadenopathy. Nodular thyroid without gross enlargement. No JVD. CARDIOVASCULAR: Regular rate and rhythm with 3/6 systolic ejection murmur best heard at left upper sternal border without radiation. RESPIRATORY: Diminished air entry throughout. Clear to auscultation. No crackles or wheezes. No increased work of breathing. GI: Positive bowel sounds in all four quadrants. Soft, nontender, nondistended. No masses, guarding, or rebound tenderness. EXTREMITIES: No cyanosis, clubbing, or edema. Positive tenting of the skin with slightly dry mucous membranes. Skin approximate 2 cm laceration to the right lateral calf that is actively oozing small amount of bright red blood without clots despite Steri-Strips and bandage in place. NEUROLOGIC: Cranial nerves 2 through 12 grossly intact without focal deficits. Gross motor reveals generalized weakness that is symmetric bilaterally. PSYCHIATRIC: Normal speech, affect, and mood appropriate. LABORATORY DATA: White count 4.5, hemoglobin 7.1, hematocrit 23.9, platelets 228 with 76% neutrophils and 17.5% lymphocytes. Sodium 141, potassium 3.5, chloride 105, bicarb 24, BUN 11, creatinine 0.91, glucose 104, calcium 9.2, T bilirubin 0.4, AST 15, ALT 7, alkaline phosphatase 71, total protein 8.6, albumin 3.8, globulin 4.8, albumin/globulin ratio 0.8. Urinalysis is negative. ASSESSMENT AND PLAN: 1. Lightheadedness/dizziness. This is secondary to dehydration more than likely, as well as her acute blood loss on chronic anemia. First, we will give the patient a normal saline bolus and run some maintenance fluids overnight and re-evaluate the patient in the morning with repeat lab work and reassessment regarding her symptoms. 2. Dehydration. See problem number #1. 3. Right leg laceration. We will get a wound care eval. We will apply pressure if actively bleeding. May need to reassess the wound to determine if they could be loosely sutured and prophylactic antibiotics given since it has been actively bleeding since the . 4. Pernicious anemia. The patient's folic acid will be continued and her vitamin B12 injections are up to date through our clinic. We will monitor her H and H. 5. Chronic pain secondary to autoimmune disorders. The patient will be continued on her lidocaine, prednisone, [place], acetaminophen, and Flexeril. 6. Chronic obstructive pulmonary disease. We will order Xopenex nebs and continue Anoro Ellipta. 7. Hypertension. The patient's regimen will be continued and blood pressure monitored. 8. Hyperlipidemia. We will continue her statin. 9. Iron-deficiency anemia. The patient's iron will be continued while hospitalized, and H and H monitor. 10. Dependent edema. This is absent. The patient appears hypovolemic at this time. We will hold her furosemide and hydrate. 11. Gastroesophageal reflux disease. The patient's omeprazole will be continued. 12. Depression/anxiety. The patient's Zoloft and hydroxyzine will be continued as well. 13. Prophylaxis. Again, the patient will be on PPI. Cannot apply mechanical prophylaxis secondary to this actively bleeding wound to the right lower extremity. Due to her coagulopathy and active bleeding, we will hold off on Lovenox as well. We may have to also hold her aspirin. We will ambulate the patient as soon as we can frequently in the halls. 14. Code status. The patient desires full code. Job ID: [id number]
[2019-01-25] MEDS: Famotidine 20 MG TAB PO SCH ×2 (09:35→20:57)
[2019-01-25] MEDS: predniSONE 10 MG TAB PO SCH (09:35)
[2019-01-25] MEDS: Folic Acid 1 MG TAB PO SCH (09:35)
[2019-01-25] MEDS: Atorvastatin Calcium 10 MG TAB PO SCH (09:35)
[2019-01-25] MEDS: Amlodipine 5 MG TAB PO SCH (09:37)
[2019-01-25] MEDS: Multivitamin W/ Minerals 1 TAB PO SCH (09:37)
[2019-01-25] MEDS: Ferrous Gluconate 324 MG TAB PO SCH ×2 (09:37→20:57)
[2019-01-25] MEDS: LYRICA 25 MG PO SCH ×3 (09:41→21:00)
[2019-01-25] MEDS: HYDROcodone/Acetaminophen 10/325 mg Tablet PO PRN ×2 (09:51→20:57)
[2019-01-25 15:48] VITALS: BMI 28.4
[2019-01-25] MEDS: Nicotine 14 MG PATCH TOP SCH (20:57)
[2019-01-25] MEDS: POTASSIUM IODIDE 1 GM/ML PO SCH (20:59)
[2019-01-25] MEDS: hydrOXYzine 25 MG TAB PO SCH (21:00)
[2019-01-26 06:33] LABS: #Eosinphils 0.1 thou/uL (0.0-0.7); #Monocytes 0.5 thou/uL (0.11-0.59); #Neutrophils 3.2 thou/uL (1.40-6.50); %Basophils 0.6 % (0.0-1.0); %Eosinophils 2.6 % (0.0-10.0); %Lymphocytes 20.7 % (21.0-51.0); %Monocytes 9.4 % (0.0-10.0); %Neutrophils 66.8 % (42.0-75.0); Hemoglobin 8.5 g/dL (12.0-16.0); Mean Corpuscular HGB CONC 30.2 g/dL (32.0-36.0); Mean Corpuscular Hemoglobin 28.1 pg (27.0-31.0); Mean Corpuscular Volume 93.2 fL (78.0-98.0); Mean Platelet Volume 5.5 fL (7.4-10.4); Platelet Count 211 thou/uL (130-400); RBC Distribution Width 16.4 % (11.5-14.5); Red Blood Cell (RBC) Count 3.02 mill/uL (4.20-5.40); White Blood Cell (WBC) Count 4.8 thou/uL (4.8-10.8)
[2019-01-26 07:31] LABS: Anion Gap 16 mmol/L (10-20); BUN (Urea Nitrogen) 12 mg/dL (9.8-20.1); Calc. Creatinine Clearance 85 mL/min (70-130); Calcium 8.6 mg/dL (7.8-10.44); Carbon Dioxide 22 mmol/L (23-31); Chloride 107 mmol/L (98-107); Estimated GFR-MDRD 85; Glucose 81 mg/dL (80-115); Potassium 3.5 mmol/L (3.5-5.1); Sodium 141 mmol/L (136-145)
[2019-01-26] MEDS: HYDROcodone/Acetaminophen 10/325 mg Tablet PO PRN ×3 (08:26→20:26)
[2019-01-26] MEDS: Famotidine 20 MG TAB PO SCH ×2 (08:28→20:26)
[2019-01-26] MEDS: Amlodipine 5 MG TAB PO SCH (08:28)
[2019-01-26] MEDS: Multivitamin W/ Minerals 1 TAB PO SCH (08:28)
[2019-01-26] MEDS: Ferrous Gluconate 324 MG TAB PO SCH ×2 (08:28→20:26)
[2019-01-26] MEDS: Atorvastatin Calcium 10 MG TAB PO SCH (08:28)
[2019-01-26] MEDS: POTASSIUM IODIDE 1 GM/ML PO SCH (08:31)
[2019-01-26] MEDS: predniSONE 10 MG TAB PO SCH (08:31)
[2019-01-26] MEDS: Folic Acid 1 MG TAB PO SCH (08:31)
[2019-01-26] MEDS: LYRICA 25 MG PO SCH ×2 (08:40→15:00)
[2019-01-26] MEDS ORDERED: Nicotine 14 MG PATCH TOP SCH (11:15)
[2019-01-26] MEDS ORDERED: Lidocaine 1% w/Epinephrine 1:100K 20 ML VIAL FS SCH (12:15)
[2019-01-26] MEDS ORDERED: Bacitracin Zinc Ointment 30 gm TUBE TOP SCH (16:00)
[2019-01-26] MEDS ORDERED: cefTRIAXone\\ROCEPHIN 1 GM in Sodium Chloride 0.9% 100 ML IVPB SCH ×2 (18:00→21:00)
[2019-01-26 19:01] VITALS: TEMP 98.2
[2019-01-26 19:08] VITALS: BP 136/60
[2019-01-26] MEDS: Nicotine 14 MG PATCH TOP SCH (20:23)
[2019-01-26] MEDS: hydrOXYzine 25 MG TAB PO SCH (20:26)
[2019-01-26] MEDS ORDERED: Ondansetron ODT 4 MG TAB PO PRN (23:18)
--- NOTE | 2019-01-27 15:00 | DIS ---
DATE OF ADMISSION: 01/22/2019 DATE OF DISCHARGE: 01/26/2019 PRIMARY CARE PHYSICIAN: Savanna Stevenson DO FINAL DIAGNOSES: 1. Right lower extremity laceration. 2. Symptomatic anemia, chronic with acute blood loss requiring blood transfusion of 2 units. 3. Physical deconditioning. 4. Hypertension. 5. Hyperlipidemia. 6. Chronic pain syndrome. 7. General anxiety disorder with major depression. HISTORY OF PRESENT ILLNESS/COURSE IN THE PROCTOR: Ms. Granado is a 68-year-old female, who presented to the ED on January 18 for right lateral calf laceration secondary to broken glass from her garbage can. Wound was not repaired. She went back to the emergency room for a nurse visit due to continuous bleeding and suggested to continue applying pressure from dressing. The following morning, she went back to the ED because of persistent bleeding at that time. X-ray and ultrasound were ordered showing no foreign body. Sterile strip was reapplied and rebandaged. She followed up with her PCP on 01/22 due to weakness and persistent bleeding. Labs ordered showing hemoglobin of 5.9 from 7.1 on previous labs. She was directly admitted from the clinic. The patient received blood transfusion x2 unit. However, she continued to have bleeding from her wound. This morning, Dr. Rosado, debrided the wound area and placed four sutures followed by application of topical antibiotic. This afternoon, the patient is still complaining of mild pain from the affected leg. She is still having some muscle weakness. She was evaluated by Physical Therapy. The patient will be transitioned to group home for physical and occupational therapy. MEDICATIONS: 1. Tylenol 650 mg every 6 hours p.r.n. for pain. 2. DuoNeb every 8 hours p.r.n. for cough and wheezing. 3. Rocephin 1 g q.12 hours. 4. Vitamin B12 of 1000 mcg subcutaneous injection every week. 5. Flexeril 10 mg t.i.d. as needed. 6. Pepcid 20 mg b.i.d. 7. Lasix 40 mg daily as needed for swelling. 8. [place] 10/325 one tablet every 4 hours p.r.n. for pain. 9. Hydroxyzine 25 mg at bedtime. 10. Multivitamins one tab daily. 11. Nicotine patch 14 mg topical every 24 hours. 12. Zofran 4 mg every 6 hours as needed for nausea and vomiting. 13. Protonix 40 mg daily. 14. Prednisone 5 mg daily. 15. Folic acid 1 mg daily. 16. Amlodipine 10 mg daily. 17. Ferrous sulfate 325 mg daily. ACTIVITY: Fall precaution, advised to use rolling walker. She will have treatment with Physical and Occupational Therapy. DIET: Heart healthy diet. Job ID: [id number]
[2019-01-28] MEDS ORDERED: Nicotine 14 MG PATCH TOP SCH (11:00)
== END 2019-01-26 23:18 | DRG 812 ==
LOC: UNDOADMOB 12:02 → INTOOBSV 12:02 → BURMED 12:02 → OBSVTOIN 12:02
PROVIDERS: ADMIT Family Medicine; ATTEND Family Medicine
PROC: 30233N1 Transfusion of Nonautologous Red Blood Cells into Peripheral Vein, Percutaneous Approach (ICD-10-PCS; principal; 2019-01-22)
DX: D64.89 Other specified anemias (principal); J44.9 Chronic obstructive pulmonary disease, unspecified; F32.9 Major depressive disorder, single episode, unspecified; M10.9 Gout, unspecified; G89.29 Other chronic pain; K21.9 Gastro-esophageal reflux disease without esophagitis; M79.7 Fibromyalgia; E78.5 Hyperlipidemia, unspecified; M19.91 Primary osteoarthritis, unspecified site; I12.9 Hypertensive chronic kidney disease with stage 1 through stage 4 chronic kidney disease, or unspecified chronic kidney disease; N18.3 Chronic kidney disease, stage 3 (moderate); Z96.653 Presence of artificial knee joint, bilateral; F17.210 Nicotine dependence, cigarettes, uncomplicated; E86.0 Dehydration; S81.811A Laceration without foreign body, right lower leg, initial encounter; F41.1 Generalized anxiety disorder; Z88.5 Allergy status to narcotic agent; Z79.82 Long term (current) use of aspirin; W26.8XXA Contact with other sharp object(s), not elsewhere classified, initial encounter
CPT/HCPCS: 36415; 36430; 80048; 80053; 81001; 85025; 86850; 86900; 86901; 86922; 94640; J0696; J1940; J2001; J3490; J7611; J7620; P9016; Q0163

== ENCOUNTER 2019-01-26 23:15 | Inpatient (IN) | payer MEDICARE ==
[2019-01-27 02:27] VITALS: BMI 27.3
[2019-01-27] MEDS ORDERED: Bisacodyl 10 MG SUPP PR PRN (02:43)
[2019-01-27] MEDS ORDERED: Cyclobenzaprine 10 MG TAB PO PRN (02:46)
[2019-01-27] MEDS ORDERED: Acetaminophen 325 MG TAB PO PRN (02:46)
[2019-01-27] MEDS ORDERED: Albuterol Sulfate 2.5 mg/3 ml Neb NEB PRN (02:46)
[2019-01-27] MEDS ORDERED: Furosemide 40 MG TAB PO PRN (02:49)
[2019-01-27] MEDS ORDERED: HYDROcodone/Acetaminophen 5/325 mg Tablet PO PRN (02:49)
[2019-01-27] MEDS ORDERED: Ondansetron ODT 4 MG TAB PO PRN (02:51)
[2019-01-27] MEDS ORDERED: cefTRIAXone\\ROCEPHIN 1 GM in Sodium Chloride 0.9% 100 ML IVPB SCH (06:00)
[2019-01-27] MEDS: Multivitamin W/ Minerals 1 TAB PO SCH (08:36)
[2019-01-27] MEDS: predniSONE 10 MG TAB PO SCH (08:36)
[2019-01-27] MEDS: Ferrous Gluconate 324 MG TAB PO SCH ×2 (08:36→17:09)
[2019-01-27] MEDS: Famotidine 20 MG TAB PO SCH ×2 (08:37→21:04)
[2019-01-27] MEDS: Amlodipine 5 MG TAB PO SCH (08:38)
[2019-01-27] MEDS: Atorvastatin Calcium 10 MG TAB PO SCH (08:38)
[2019-01-27] MEDS: Folic Acid 1 MG TAB PO SCH (08:38)
[2019-01-27] MEDS: LYRICA 25 MG PO SCH ×3 (08:39→21:11)
[2019-01-27] MEDS: HYDROcodone/Acetaminophen 10/325 mg Tablet PO PRN ×2 (08:47→21:04)
[2019-01-27] MEDS: POTASSIUM IODIDE 1 GM/ML PO SCH ×2 (08:49→21:13)
[2019-01-27] MEDS: Nicotine 14 MG PATCH TOP SCH (11:42)
[2019-01-27] MEDS: Senokot S 8.6-50 MG TAB PO PRN (13:02)
[2019-01-27] MEDS: Bacitracin Zinc Ointment 30 gm TUBE TOP SCH (17:09)
[2019-01-27] MEDS: Cefdinir 300 MG CAP PO SCH (21:04)
[2019-01-27] MEDS: hydrOXYzine 25 MG TAB PO SCH (21:05)
[2019-01-28] MEDS: POTASSIUM IODIDE 1 GM/ML PO SCH ×2 (09:12→21:41)
[2019-01-28] MEDS: Amlodipine 5 MG TAB PO SCH (09:15)
[2019-01-28] MEDS: Multivitamin W/ Minerals 1 TAB PO SCH (09:15)
[2019-01-28] MEDS: Ferrous Gluconate 324 MG TAB PO SCH ×2 (09:16→16:49)
[2019-01-28] MEDS: Famotidine 20 MG TAB PO SCH ×2 (09:16→21:41)
[2019-01-28] MEDS: predniSONE 10 MG TAB PO SCH (09:16)
[2019-01-28] MEDS: Senokot S 8.6-50 MG TAB PO PRN (09:16)
[2019-01-28] MEDS: Folic Acid 1 MG TAB PO SCH (09:16)
[2019-01-28] MEDS: Atorvastatin Calcium 10 MG TAB PO SCH (09:17)
[2019-01-28] MEDS: Cefdinir 300 MG CAP PO SCH ×2 (09:17→21:41)
[2019-01-28] MEDS: LYRICA 25 MG PO SCH ×3 (09:23→21:40)
[2019-01-28] MEDS: Nicotine 14 MG PATCH TOP SCH (12:11)
[2019-01-28] MEDS ORDERED: Polyethylene Glycol 3350 17 GM Packet PO SCH (12:30)
--- NOTE | 2019-01-28 14:43 | HP ---
PRIMARY CARE PHYSICIAN: Dr. Stevenson. CHIEF COMPLAINT: Inpatient rehab for physical deconditioning secondary to symptomatic anemia, chronic, with acute blood loss, status post right lower extremity laceration with repair. HISTORY OF PRESENT ILLNESS: Ms. Granado is a 68-year-old female who presented to ED on 01/18 for right lateral calf laceration secondary to a broken glass from her garbage can. Wound was not repaired at the emergency room, she went back that evening for persistent bleeding, hence was advised to continue pressure. The following morning, she went back again due to continuous bleeding. She had an x-ray and ultrasound, showing no foreign body, Steri-Strips and re-bandaging were instituted. She followed up with her PCP 2 days later due to weakness, labs drawn showing hemoglobin dropped to 5.9. She was directly admitted to the hospital for symptomatic anemia. The patient was given 2 units of blood; however, since admission, the patient still has continuous bleeding from the wound. The area was debrided and repaired by Dr. Rosado with application of compressive dressing. The patient was evaluated by Physical Therapy this afternoon. Due to the patient's deconditioning secondary to anemia and multiple other comorbid conditions, the patient will be transitioned for fdc with physical therapy. MEDICATIONS: 1. Tylenol 650 mg every 6 hours p.r.n. for pain. 2. [place] 10/325 mg one tablet every 4 hours p.r.n. for jvijcuip-qo-tjoyde pain. 3. Ventolin neb every 8 hours p.r.n. for cough and wheezing. 4. DuoNeb q.6 h. scheduled. 5. Norvasc 10 mg daily. 6. Lipitor 10 mg daily. 7. Bacitracin ointment one application daily to affected area. 8. Dulcolax 10 mg p.r.n. for constipation. 9. Omnicef 300 mg b.i.d. 10. Vitamin B12 of 1000 mcg subcutaneous injection every 7 days. 11. Flexeril 10 mg t.i.d. p.r.n. for muscle spasm. 12. Famotidine 20 mg b.i.d. 13. Ferrous sulfate 325 mg b.i.d. 14. Folic acid 1 mg daily. 15. Furosemide 40 mg daily p.r.n. for swelling. 16. Hydroxyzine 25 mg nightly. 17. Multivitamins one tablet daily. 18. Nicotine patch 14 mg daily. 19. Zofran 4 mg every 6 hours p.r.n. for nausea and vomiting. 20. Pantoprazole 40 mg daily. 21. Lyrica 25 mg t.i.d. 22. Prednisone 5 mg q.a.m. 23. Zoloft 100 mg nightly. PAST MEDICAL HISTORY: 1. Iron-deficiency anemia. 2. Pernicious anemia. 3. Folate deficiency. 4. Anemia of chronic disease. 5. Coagulopathy. 6. COPD. 7. Hypertension. 8. Depression. 9. Gout. 10. Venous insufficiency of lower extremity. 11. Erythema nodosum. 12. Chronic pain syndrome secondary to erythema nodosum and autoimmune disease. 13. GERD. 14. Fibromyalgia. 15. SLE. 16. History of GI bleed in 2013. 17. Osteoarthritis. 18. Hyperlipidemia. 19. Tobacco use. 20. Steroid dependent. 21. Pulmonary hypertension. 22. Chronic kidney disease, stage 3, followed by Dr. Dutton. PAST SURGICAL HISTORY: 1. Left total knee arthroplasty. 2. Left hip arthroplasty. 3. Bilateral breast biopsy. 4. EGD. 5. Back surgery. 6. Right total knee arthroplasty. FAMILY HISTORY: Father due to heart disease and renal problems. Mother from heart disease. Has two brothers and 1 sister, all , unknown cause. SOCIAL HISTORY: The patient is a known smoker, consumes about half a pack per day. She denies alcohol or drug use. She lives alone, but has a care provider. She ambulates with a walker and has a Life Alert monitor. ALLERGIES: CODEINE. REVIEW OF SYSTEMS: GENERAL: Positive for fatigue. Negative for fever or chills. HEENT: Positive for blurred vision. Negative for headaches. Negative for sore throat. CARDIOVASCULAR: Denies chest pain. Negative for palpitations. RESPIRATORY: Occasional shortness of breath. Negative for wheezing. GI: Negative for diarrhea or constipation. GENITOURINARY: Negative for dysuria. Negative for hematuria. LYMPHATICS: Denies any swollen nodes. HEMATOLOGIC: Positive for bleeding from affected leg, now controlled after repair. PSYCHIATRIC: Positive for anxiety. Positive for insomnia. Positive for depression. All controlled with current medications. NEUROLOGIC: Positive for numbness on both legs. Denies focal weakness. PHYSICAL EXAMINATION: VITAL SIGNS: Blood pressure 136/60, temperature 98.2, heart rate of 83, RR of 20, and O2 saturation 94%. GENERAL: The patient is alert and oriented, not in respiratory distress. HEENT: Normocephalic and atraumatic. Pupils equally reactive to light. NECK: Supple. Negative for lymphadenopathy. CHEST AND LUNGS: Symmetrical expansion. Clear to auscultation. HEART: Regular rate and rhythm. Negative for murmur, rubs, or gallops. ABDOMEN: Flat, soft, and nontender. Normoactive bowel sounds. EXTREMITIES: No cyanosis, no clubbing, and no edema. Positive for dressing on right lower extremity, good range of motion. NEUROLOGIC: Cranial nerves 2 through 12 intact. No focal deficits. PSYCHIATRIC: Appropriate affect and demeanor. LABORATORY DATA: Reviewed. ASSESSMENT: 1. Physical deconditioning. 2. Symptomatic anemia, chronic, with acute blood loss, requiring blood transfusion of 2 units. 3. Right lower extremity laceration, requiring repair. 4. Hypertension. 5. Hyperlipidemia. 6. General anxiety disorder. 7. Chronic pain syndrome. 8. Gastroesophageal reflux disease. PLAN: 1. The patient will start physical and occupational therapy to address physical deconditioning. 2. Monitor vital signs. 3. Check hemoglobin and hematocrit. 4. Continue present oral antibiotics. 5. Possible discharge to home on Friday, case manager specialist to arrange for discharge planning. Job ID: [id number]
[2019-01-28] MEDS: Bacitracin Zinc Ointment 30 gm TUBE TOP SCH (16:51)
[2019-01-28] MEDS: hydrOXYzine 25 MG TAB PO SCH (21:41)
[2019-01-28] MEDS: HYDROcodone/Acetaminophen 10/325 mg Tablet PO PRN (22:38)
[2019-01-29 06:26] VITALS: BP 144/65; TEMP 98.5
[2019-01-29] MEDS: Amlodipine 5 MG TAB PO SCH (08:45)
[2019-01-29] MEDS: Ferrous Gluconate 324 MG TAB PO SCH (08:46)
[2019-01-29] MEDS: predniSONE 10 MG TAB PO SCH (08:47)
[2019-01-29] MEDS: Multivitamin W/ Minerals 1 TAB PO SCH (08:47)
[2019-01-29] MEDS: Famotidine 20 MG TAB PO SCH (08:47)
[2019-01-29] MEDS: Atorvastatin Calcium 10 MG TAB PO SCH (08:47)
[2019-01-29] MEDS: Cefdinir 300 MG CAP PO SCH (08:47)
[2019-01-29] MEDS: Folic Acid 1 MG TAB PO SCH (08:48)
[2019-01-29] MEDS: POTASSIUM IODIDE 1 GM/ML PO SCH (09:00)
[2019-01-29] MEDS ORDERED: Polyethylene Glycol 3350 17 GM Packet PO SCH (09:00)
[2019-01-29] MEDS ORDERED: Cyanocobalamin 1000 MCG/ML VIAL SC SCH (09:00)
[2019-01-29] MEDS: LYRICA 25 MG PO SCH (09:09)
--- NOTE | 2019-01-29 09:48 | PRG ---
DATE OF SERVICE: 01/28/2019 SUBJECTIVE: The patient denies any complaints, denies any bleeding from the affected wound. Last wound check done on 01/27 showed a small wound on right lower extremity with four sutures with minimal bloody drainage. Positive for mild tenderness. The patient is participating with Physical Therapy, she ambulated 300 feet today using rolling walker. The patient is requesting to get discharged tomorrow. OBJECTIVE: VITAL SIGNS: Blood pressure of 145/67, temperature 98.1, pulse of 87, RR of 20, and O2 saturation 96% on room air. GENERAL: The patient is alert, oriented, not in respiratory distress. HEENT: Normocephalic and atraumatic. Pupils are equal and reactive to light. NECK: Supple. Negative for lymphadenopathy. CHEST AND LUNGS: Symmetrical expansion. Clear to auscultation. HEART: Regular rate and rhythm. Negative for murmur. ABDOMEN: Flat, soft, and nontender. Normoactive bowel sounds. EXTREMITIES: Positive for right lower extremity dressing. Good range of motion of bilateral lower extremity. NEUROLOGIC: Cranial nerves II through XII intact. PSYCHIATRIC: Appropriate affect and demeanor. LABORATORY DATA: Labs reviewed. ASSESSMENT: 1. Physical deconditioning. 2. Symptomatic anemia, chronic with acute blood loss, requiring blood transfusion of 2 units. 3. Right lower extremity laceration, repaired with four sutures. 4. Hypertension. 5. Hyperlipidemia. 6. General anxiety disorder. 7. Chronic pain syndrome. 8. Gastroesophageal reflux disease. PLAN: 1. Continue physical therapy. 2. Discharge to home in a.m. 3. Follow up with PCP next week, the patient will call and schedule for appointment. 4. Removal of sutures on February 04. 5. Continue oral antibiotics. Job ID: [id number]
[2019-01-29] MEDS: Nicotine 14 MG PATCH TOP SCH (11:20)
--- NOTE | 2019-02-01 08:18 | DIS ---
DATE OF ADMISSION: 01/26/2019 DATE OF DISCHARGE: 01/29/2019 PRIMARY CARE PHYSICIAN: Savanna Stevenson DO FINAL DIAGNOSES: 1. Physical deconditioning. 2. Acute blood loss resulting to symptomatic anemia, requiring blood transfusion of 2 units. 3. Right lower extremity laceration, status post repair with sutures. 4. Hypertension. 5. Hyperlipidemia. 6. General anxiety disorder. 7. Chronic pain syndrome. 8. Coagulopathy. 9. Chronic obstructive pulmonary disease. 10. Gastroesophageal reflux disease. HISTORY OF PRESENT ILLNESS/COURSE IN THE PROCTOR: Ms. Granado is a 68-year-old female admitted for inpatient rehab for physical deconditioning secondary to acute blood loss resulting to symptomatic anemia and repair of right lower extremity laceration. She was seen at ED on January 18 for right lateral calf laceration secondary to a broken glass from her garbage can, she was seen twice at the ED for treatment of the above injury, injury was not repaired with sutures, she had a persistent bleeding resulting to acute blood loss requiring blood transfusion. On January 26, wound was repaired by Dr. Rosado, she was subsequently referred to Physical Therapy to address her deconditioning. During her stay, her vital signs remained stable, she complained of mild spasms on the right leg and tingling. Re-evaluation of the patient noted that she is stable for discharge and we will continue with [facility] with physical therapy to address her weakness. MEDICATIONS: 1. Lyrica 25 mg t.i.d. 2. Dulcolax 10 mg suppository daily as needed. 3. Zoloft 100 mg daily. 4. Prednisone 5 mg daily. 5. Protonix 40 mg daily. 6. Multivitamins daily. 7. Hydroxyzine 25 mg q.h.s. 8. Lasix 40 mg daily. 9. Pepcid 20 mg b.i.d. 10. Flexeril 10 mg t.i.d. as needed. 11. Vitamin B12 injection every weekly. 12. Albuterol sulfate nebulization every 8 hours p.r.n. for wheezing and cough. 13. Tylenol every 6 hours p.r.n. 14. Ferrous gluconate 324 mg b.i.d. 15. Amlodipine 10 mg daily. 16. Lipitor daily. 17. Folic acid 1 mg daily. 18. [place] 5/325 every 6 hours p.r.n. for pain, [place] 10/325 was discontinued. 19. Cefdinir 300 mg b.i.d. for 7 days. DISPOSITION: Discharge to home. CONDITION: Stable. ACTIVITY: As tolerated. The patient is advised to use rolling walker at all times. She will resume physical therapy under [facility]. Home Health is aware that she is being discharged today. DIET: Heart healthy diet. ADDITIONAL INSTRUCTIONS: The patient is advised to follow up with her PCP on 02/05/2019 for removal of sutures. She is also advised to keep wound clean. Advised the patient that if any worsening symptoms or recurrence of bleeding, she should be seen at the ED for further evaluation and treatment. The patient verbalized understanding. Job ID: [id number]
== END 2019-01-29 11:58 | disposition home or self-care (01) | DRG 812 ==
LOC: BURMED 23:15
PROVIDERS: ADMIT Family Medicine; ATTEND Family Medicine
DX: D62 Acute posthemorrhagic anemia (principal); J44.9 Chronic obstructive pulmonary disease, unspecified; F32.9 Major depressive disorder, single episode, unspecified; K21.9 Gastro-esophageal reflux disease without esophagitis; M79.7 Fibromyalgia; M19.91 Primary osteoarthritis, unspecified site; E78.5 Hyperlipidemia, unspecified; N18.3 Chronic kidney disease, stage 3 (moderate); D63.1 Anemia in chronic kidney disease; I12.9 Hypertensive chronic kidney disease with stage 1 through stage 4 chronic kidney disease, or unspecified chronic kidney disease; F41.1 Generalized anxiety disorder; G89.4 Chronic pain syndrome; D51.0 Vitamin B12 deficiency anemia due to intrinsic factor deficiency; R79.1 Abnormal coagulation profile; M10.9 Gout, unspecified; M32.9 Systemic lupus erythematosus, unspecified; I27.20 Pulmonary hypertension, unspecified; Z96.652 Presence of left artificial knee joint; Z96.642 Presence of left artificial hip joint; Z96.651 Presence of right artificial knee joint; F17.200 Nicotine dependence, unspecified, uncomplicated; Z88.5 Allergy status to narcotic agent; Z79.899 Other long term (current) drug therapy; S81.811D Laceration without foreign body, right lower leg, subsequent encounter; W26.9XXD Contact with unspecified sharp object(s), subsequent encounter
CPT/HCPCS: 97602; J0696; J3420; J3490; J7512; J7620

== ENCOUNTER 2019-02-12 11:08 | Emergency (ER) | payer MEDICARE, OTHER ==
--- NOTE | 2019-02-12 13:15 | RAD ---
RIGHT HIP 2 VIEWS: Date: 02/12/19 No fracture or dislocation seen at this time. Calcification is seen alongside the greater trochanter that may be from prior tendinitis or tendinous injury. The adjacent pubic ring appears intact. The hi p joint space is normal in width. IMPRESSION: No acute findings. POS: HOME
== END 2019-02-12 12:29 | disposition home or self-care (01) ==
LOC: BURERS 11:08
DX: S70.01XA Contusion of right hip, initial encounter (principal); S10.91XA Abrasion of unspecified part of neck, initial encounter; Z71.6 Tobacco abuse counseling; J44.9 Chronic obstructive pulmonary disease, unspecified; M10.9 Gout, unspecified; K21.9 Gastro-esophageal reflux disease without esophagitis; I10 Essential (primary) hypertension; D64.9 Anemia, unspecified; F41.9 Anxiety disorder, unspecified; F17.210 Nicotine dependence, cigarettes, uncomplicated; Z79.899 Other long term (current) drug therapy; W18.30XA Fall on same level, unspecified, initial encounter
CPT/HCPCS: 99406

== ENCOUNTER 2019-02-22 10:46 | Outpatient (CLI) | payer MEDICARE ==
--- NOTE | 2019-02-22 18:05 | RAD ---
RIGHT RIBS FOUR VIEWS: Date: 02-22-19 FINDINGS: No fracture was seen. All ribs currently appear intact. The right lung is clear and fully inflated. T here are no effusions. IMPRESSION: No acute findings. POS: HOME
== END 2019-02-22 10:47 | disposition home or self-care (01) ==
LOC: BURRAD 10:46
PROVIDERS: ATTEND Family Medicine
DX: R07.81 Pleurodynia (principal)

== ENCOUNTER 2019-04-05 20:54 | Emergency (ER) | payer MEDICARE ==
[~2019-04-05 20:54] MED LIST: Iopamidol 370 76% 100 ML VIAL ONE
[2019-04-05 21:22] LABS: Bilirubin Negative (Negative); Blood, Urine Small (Negative); Clarity Cloudy (Clear); Glucose, Urine (Dipstick) Negative (Negative); Leukocyte Large (Negative); Nitrite Negative (Negative); Protein, Urine (Dipstick) Negative (Neg-Trace); Urobilinogen 0.2 mg/dL (Less than 2)
[2019-04-05 21:29] LABS: Bacteria/HPF 2+ HPF (None Seen); RBC/HPF 0-3 HPF (0-3); Squamous Epithelial 0-3 HPF (0-3); WBC/HPF Greater Than 50 HPF (0-3)
[2019-04-05 21:55] LABS: Hemoglobin 7.9 g/dL (12.0-16.0); Mean Corpuscular HGB CONC 30.2 g/dL (32.0-36.0); Mean Corpuscular Hemoglobin 27.7 pg (27.0-31.0); Mean Corpuscular Volume 91.5 fL (78.0-98.0); Mean Platelet Volume 7.6 fL (7.4-10.4); Platelet Count 178 thou/uL (130-400); RBC Distribution Width 14.7 % (11.5-14.5); Red Blood Cell (RBC) Count 2.85 mill/uL (4.20-5.40)
[2019-04-05 22:01] LABS: ALT (SGPT) 10 U/L (8-55); AST (SGOT) 18 U/L (5-34); Albumin 3.4 g/dL (3.4-4.8); Alkaline Phosphatase 73 U/L (40-110); Anion Gap 15 mmol/L (10-20); BUN (Urea Nitrogen) 12 mg/dL (9.8-20.1); Bilirubin, Total 0.3 mg/dL (0.2-1.2); Calc. Creatinine Clearance 0 mL/min (70-130); Calcium 8.8 mg/dL (7.8-10.44); Carbon Dioxide 24 mmol/L (23-31); Chloride 103 mmol/L (98-107); Estimated GFR-MDRD 58; Globulin 5.1 g/dL (2.4-3.5); Glucose 93 mg/dL (80-115); Lipase 53 U/L (8-78); Potassium 3.5 mmol/L (3.5-5.1); Protein, Total 8.5 g/dL (6.0-8.3); Sodium 138 mmol/L (136-145)
[2019-04-05 22:14] LABS: Band 1 % (5-11); Eosinophils 4 % (0-10); Lymphocytes 25 % (21-51); MDiff Complete? YES; Monocytes 13 % (0-10); Neutrophil 57 % (42-75); Platelet Morphology Comment Appears Adequate; RBC Morphology Normal
[2019-04-05] MEDS ORDERED: cefTRIAXone\\ROCEPHIN 1 GM VIAL ONE (22:18)
--- NOTE | 2019-04-06 08:08 | CT ---
PRELIMINARY REPORT/[facility]/EMERGENCY AFTER HOURS PROCEDURE: PROCEDURE INFORMATION: Exam: CT Abdomen And Pelvis With Contrast Exam date and time: 04/05/2019 10:17 PM Clinical history: 68 years old, female; Abdominal pain; Flank; Right; Prior surgery; Surgery date: 6+ months; Surgery type: Lumbar, hip replacement; Patient HX: PT states she started having abd pain las t night TECHNIQUE: Imaging protocol: Computed tomography of the abdomen and pelvis with intravenous contrast. Radiation optimization: All CT scans at this facility use at least one of these dose optimization dayana hniques: automated exposure control; mA and/or kV adjustment per patient size (includes targeted exam s where dose is matched to clinical indication); or iterative reconstruction. Contrast material: ISOVUE 370; Contrast volume: 70 ml; Contrast route: RT AC; COMPARISON: No relevant prior studies available. FINDINGS: Liver: Normal. Gallbladder and bile ducts: Gallbladder is surgically absent. Pancreas: Normal. Spleen: Normal. Adrenals: Normal. Kidneys and ureters: Normal. Stomach and bowel: Normal. Appendix: Appendix normal. Intraperitoneal space: Unremarkable. No free air. No significant fluid collection. Vasculature: Atherosclerotic disease of abdominal aorta and iliac arteries. Lymph nodes: Unremarkable. No enlarged lymph nodes. Bladder: Unremarkable as visualized. Reproductive: Unremarkable as visualized. Bones/joints: Left hip arthroplasty, without acute complications. Degenerative changes of the left sa croiliac joint. Posterior L4-5 fusion and decompression, without acute complications. Soft tissues: Normal. IMPRESSION: No acute abdominal or pelvic abnormality. Thank you for allowing us to participate in the care of your patient. Dictated and Authenticated by: Redd Brewer MD 04/05/2019 11:05 PM Central Time ([place] & [place]) FINAL REPORT CT ABDOMEN AND PELVIS WITH CONTRAST: Date: 04-05-[address] of the abdomen and pelvis was performed for evaluation of abdominal pain. Axial slices were acquired followed by coronal and sagittal reconstructions. FINDINGS: The lung bases are clear. Liver, spleen, pancreas, adrenal glands, and kidneys showed no acute findin gs. There is no distention of bowel to suggest obstruction. The appendix appears normal. Some of the loops of small bowel may have mildly prominent folds, but there is no dilation of bowel at all. I am not impressed by any mesenteric adenopathy. The abdominal aorta shows calcification but no aneurysm. CT of the pelvis shows no pelvic masses, fluid collections, or inflammatory changes. The left hip art hroplasty is noted as well as posterior fusion down in the lower lumbar levels around L4-5. IMPRESSION: 1. No acute abdominal or pelvic findings. Report in agreement with preliminary reading by JAY. POS: HOME
== END 2019-04-05 23:15 | disposition home or self-care (01) ==
LOC: BURERS 20:54
DX: N39.0 Urinary tract infection, site not specified (principal); D64.9 Anemia, unspecified; J44.9 Chronic obstructive pulmonary disease, unspecified; M10.9 Gout, unspecified; K21.9 Gastro-esophageal reflux disease without esophagitis; E78.5 Hyperlipidemia, unspecified; I10 Essential (primary) hypertension; G47.00 Insomnia, unspecified; N18.3 Chronic kidney disease, stage 3 (moderate); F41.9 Anxiety disorder, unspecified; F17.210 Nicotine dependence, cigarettes, uncomplicated; Z79.899 Other long term (current) drug therapy
CPT/HCPCS: 74177; 80053; 81003; 81015; 83605; 83690; 85025; 87077; 87086; 87186; 96374; J0696; Q9967

== ENCOUNTER 2019-05-16 08:45 | Emergency (ER) | payer MEDICARE ==
[2019-05-16] MEDS ORDERED: Ketorolac Tromethamine 30 MG/ML VIAL ONE (09:21)
--- NOTE | 2019-05-16 12:14 | RAD ---
RIGHT HIP 3 VIEWS: Date: 03/16/19 No fracture or joint space narrowing seen. Calcification is seen in the soft tissues over the greater trochanter. The bony pelvis is included on the study and shows no acute fracture. A left hip arthrop lasty was noted. IMPRESSION: No acute findings. POS: HOME
== END 2019-05-16 09:50 | disposition home or self-care (01) ==
LOC: BURERS 08:45
DX: S70.01XA Contusion of right hip, initial encounter (principal); M16.11 Unilateral primary osteoarthritis, right hip; M10.9 Gout, unspecified; J43.9 Emphysema, unspecified; K21.9 Gastro-esophageal reflux disease without esophagitis; D64.9 Anemia, unspecified; G47.00 Insomnia, unspecified; I12.9 Hypertensive chronic kidney disease with stage 1 through stage 4 chronic kidney disease, or unspecified chronic kidney disease; N18.3 Chronic kidney disease, stage 3 (moderate); F41.9 Anxiety disorder, unspecified; F17.210 Nicotine dependence, cigarettes, uncomplicated; W06.XXXA Fall from bed, initial encounter
CPT/HCPCS: 96374; J1885

== ENCOUNTER 2019-06-04 16:27 | Outpatient (CLI) | payer MEDICARE ==
--- NOTE | 2019-06-04 16:56 | RAD ---
EXAM: 2 views of the right hip HISTORY: Right hip pain COMPARISON: None FINDINGS: 2 views of the right hip shows no evidence of acute fracture or dislocation. No degenerativ e changes are seen. No soft tissue swelling is present. IMPRESSION: No evidence of acute osseous abnormality.
== END 2019-06-04 16:28 | disposition home or self-care (01) ==
LOC: BURRAD 16:27
PROVIDERS: ATTEND Family Medicine
DX: M25.551 Pain in right hip (principal)

== ENCOUNTER 2019-06-22 09:26 | Emergency (ER) | payer MEDICARE ==
[2019-06-22 10:09] LABS: #Eosinphils 0.1 thou/uL (0.0-0.7); #Monocytes 0.4 thou/uL (0.11-0.59); #Neutrophils 1.7 thou/uL (1.40-6.50); %Basophils 0.6 % (0.0-1.0); %Eosinophils 2.9 % (0.0-10.0); %Lymphocytes 30.2 % (21.0-51.0); %Monocytes 11.7 % (0.0-10.0); %Neutrophils 54.6 % (42.0-75.0); Mean Corpuscular HGB CONC 29.4 g/dL (32.0-36.0); Mean Corpuscular Hemoglobin 26.1 pg (27.0-31.0); Mean Platelet Volume 6.5 fL (7.4-10.4); Platelet Count 186 thou/uL (130-400); Red Blood Cell (RBC) Count 3.07 mill/uL (4.20-5.40); White Blood Cell (WBC) Count 3.2 thou/uL (4.8-10.8)
[2019-06-22 10:16] LABS: ALT (SGPT) 12 U/L (8-55); AST (SGOT) 21 U/L (5-34); Albumin 3.6 g/dL (3.4-4.8); Alkaline Phosphatase 78 U/L (40-110); Anion Gap 14 mmol/L (10-20); BUN (Urea Nitrogen) 9 mg/dL (9.8-20.1); Bilirubin, Total 0.4 mg/dL (0.2-1.2); Calc. Creatinine Clearance 0 mL/min (70-130); Calcium 8.9 mg/dL (7.8-10.44); Carbon Dioxide 24 mmol/L (23-31); Chloride 104 mmol/L (98-107); Estimated GFR-MDRD 78; Globulin 4.9 g/dL (2.4-3.5); Glucose 89 mg/dL (80-115); Potassium 3.1 mmol/L (3.5-5.1); Protein, Total 8.5 g/dL (6.0-8.3); Sodium 139 mmol/L (136-145)
[2019-06-22 10:23] LABS: Anisocytosis SLIGHT = 6-15 cells (100X) (0-5/hpf); MDiff Complete? YES; Platelet Morphology Comment Appears Adequate
[2019-06-22] MEDS ORDERED: Potassium Chloride 20 MEQ TAB ONE (10:30)
== END 2019-06-22 10:44 | disposition home or self-care (01) ==
LOC: BURERS 09:26
DX: D64.9 Anemia, unspecified (principal); E87.6 Hypokalemia; J43.9 Emphysema, unspecified; K21.9 Gastro-esophageal reflux disease without esophagitis; E78.5 Hyperlipidemia, unspecified; I10 Essential (primary) hypertension; I12.9 Hypertensive chronic kidney disease with stage 1 through stage 4 chronic kidney disease, or unspecified chronic kidney disease; N18.3 Chronic kidney disease, stage 3 (moderate); F41.9 Anxiety disorder, unspecified; F17.290 Nicotine dependence, other tobacco product, uncomplicated; Z79.899 Other long term (current) drug therapy
CPT/HCPCS: 36415; 80053; 85025; 94760

== ENCOUNTER 2019-12-27 11:18 | Outpatient (CLI) | payer MEDICARE ==
[2019-12-27 11:45] LABS: INR-International Normal Ratio 1.1; Prothrombin Time 14.3 sec (12.0-14.7)
[2019-12-27 12:00] LABS: #Eosinphils 0.1 thou/uL (0.0-0.7); #Monocytes 0.3 thou/uL (0.11-0.59); #Neutrophils 2.6 thou/uL (1.40-6.50); %Basophils 0.9 % (0.0-1.0); %Eosinophils 1.9 % (0.0-10.0); %Lymphocytes 23.6 % (21.0-51.0); %Monocytes 8.1 % (0.0-10.0); %Neutrophils 65.5 % (42.0-75.0); Hemoglobin 8.2 g/dL (12.0-16.0); Mean Corpuscular HGB CONC 29.5 g/dL (32.0-36.0); Mean Corpuscular Hemoglobin 28.4 pg (27.0-31.0); Mean Corpuscular Volume 96.3 fL (78.0-98.0); Mean Platelet Volume 6.7 fL (7.4-10.4); Platelet Count 175 thou/uL (130-400); RBC Distribution Width 14.7 % (11.5-14.5); Red Blood Cell (RBC) Count 2.88 mill/uL (4.20-5.40)
[2019-12-27 12:14] LABS: Hypochromia SLIGHT = 6-15 cells (100X) (0-5/hpf); MDiff Complete? YES
[2019-12-27 12:34] LABS: Anion Gap 14 mmol/L (10-20); BUN (Urea Nitrogen) 17 mg/dL (9.8-20.1); Calc. Creatinine Clearance 0 mL/min (70-130); Calcium 8.8 mg/dL (7.8-10.44); Carbon Dioxide 21 mmol/L (23-31); Chloride 107 mmol/L (98-107); Estimated GFR-MDRD 68; Glucose 79 mg/dL (80-115); Potassium 3.6 mmol/L (3.5-5.1); Sodium 138 mmol/L (136-145)
--- NOTE | 2019-12-27 19:07 | RAD ---
CHEST TWO VIEWS: Date: 12-27-2019 Comparison: 04-12-19 FINDINGS: There is no adverse change. The heart is normal in size and the lungs are clear. There is no vascular congestion or pleural effusion. Calcification is seen in the aortic arch. The trachea is midline. IMPRESSION: Arteriosclerosis but no acute findings. POS: HOME
== END 2019-12-27 11:19 | disposition home or self-care (01) ==
LOC: BUREKG 11:18
PROVIDERS: ATTEND Family Medicine
DX: Z01.818 Encounter for other preprocedural examination (principal); T14.8XXA Other injury of unspecified body region, initial encounter; I70.0 Atherosclerosis of aorta
CPT/HCPCS: 36415; 71046; 80048; 85025; 85610; 93005; 93010

== ENCOUNTER 2020-07-03 13:01 | Emergency (ER) | payer MEDICARE ==
[2020-07-03 13:48] LABS: Hemoglobin 9.4 g/dL (12.0-16.0); Mean Corpuscular HGB CONC 32.2 g/dL (32.0-36.0); Mean Corpuscular Hemoglobin 30.7 pg (27.0-31.0); Mean Corpuscular Volume 95.5 fL (78.0-98.0); Mean Platelet Volume 8.2 fL (7.4-10.4); Platelet Count 142 thou/uL (130-400); RBC Distribution Width 15.3 % (11.5-14.5); Red Blood Cell (RBC) Count 3.06 mill/uL (4.20-5.40); White Blood Cell (WBC) Count 4.1 thou/uL (4.8-10.8)
[2020-07-03 14:00] LABS: ALT (SGPT) 28 U/L (8-55); AST (SGOT) 25 U/L (5-34); Albumin 3.7 g/dL (3.4-4.8); Alkaline Phosphatase 78 U/L (40-110); Anion Gap 12 mmol/L (10-20); BUN (Urea Nitrogen) 20 mg/dL (9.8-20.1); Bilirubin, Total 0.4 mg/dL (0.2-1.2); Calc. Creatinine Clearance 0 mL/min (70-130); Calcium 8.8 mg/dL (7.8-10.44); Carbon Dioxide 23 mmol/L (23-31); Chloride 106 mmol/L (98-107); Globulin 5.1 g/dL (2.4-3.5); Glucose 97 mg/dL (83-110); Lipase 67 U/L (8-78); Potassium 3.3 mmol/L (3.5-5.1); Protein, Total 8.8 g/dL (5.8-8.1); Sodium 138 mmol/L (136-145)
[2020-07-03 14:16] LABS: Band 11 % (5-11); Eosinophils 1 % (0-10); Lymphocytes 25 % (21-51); MDiff Complete? YES; Monocytes 4 % (0-10); Neutrophil 59 % (42-75)
[2020-07-03] MEDS ORDERED: Acetaminophen 325 MG TAB ONE ×2 (14:21)
[2020-07-03] MEDS ORDERED: Aspirin Chewable 81 MG TAB ONE (14:57)
[2020-07-03 15:23] LABS: Bilirubin Negative (Negative); Blood, Urine Trace (Negative); Clarity Clear (Clear); Glucose, Urine (Dipstick) Negative (Negative); Ketone, Urine Negative (Negative); Leukocyte Negative (Negative); Nitrite Negative (Negative); Protein, Urine (Dipstick) 100 mg/dL (Neg-Trace); Specific Gravity, Urine 1.025 (1.005-1.030); Urobilinogen 0.2 mg/dL (Less than 2)
[2020-07-03 17:05] LABS: Bacteria/HPF None Seen HPF (None Seen); RBC/HPF 0-3 HPF (0-3); Squamous Epithelial 0-3 HPF (0-3); WBC/HPF 0-3 HPF (0-3)
--- NOTE | 2020-07-03 17:17 | RAD ---
PORTABLE CHEST: Date: 07-03-2020 An AP portable film at 1356 is compared with a 12-27-2019 study. FINDINGS: The heart is normal in size and the lungs are clear. There is no vascular congestion, edema, or pleur al effusion. No focal pulmonary infiltrates are seen. IMPRESSION: No acute thoracic finding. POS: HOME
--- NOTE | 2020-07-03 17:35 | CT ---
CT BRAIN: Date: 07-03-2020 A noncontrast study was done and compared with a prior exam of 05-07-17. FINDINGS: Mild diffuse atrophy is present with slight compensatory dilatation of the ventricles to an expected degree. Some deep white matter lucency is suggestive of chronic white matter ischemic change. There w ere no findings of intracranial bleeding, mass, edema, or acute stroke. The visible paranasal sinuses are clear, as are the mastoid air cells. The calvarium is normal in appearance. IMPRESSION: No acute intracranial findings. POS: HOME
[2020-07-04 02:54] LABS: SARS-CoV-2 PCR by NAA Not Detected (NotDetected)
== END 2020-07-03 17:05 | disposition home or self-care (01) ==
LOC: BURERS 13:01
DX: R51.9 Headache, unspecified (principal); Z20.822 Contact with and (suspected) exposure to COVID-19; Z79.899 Other long term (current) drug therapy; Z79.891 Long term (current) use of opiate analgesic; Z79.52 Long term (current) use of systemic steroids; M19.90 Unspecified osteoarthritis, unspecified site; J43.9 Emphysema, unspecified; M10.9 Gout, unspecified; K21.9 Gastro-esophageal reflux disease without esophagitis; E78.5 Hyperlipidemia, unspecified; I12.9 Hypertensive chronic kidney disease with stage 1 through stage 4 chronic kidney disease, or unspecified chronic kidney disease; N18.30 Chronic kidney disease, stage 3 unspecified; F17.290 Nicotine dependence, other tobacco product, uncomplicated; M17.0 Bilateral primary osteoarthritis of knee
CPT/HCPCS: 70450; 71045; 80053; 83605; 83690; 83880; 84484; 85025; 93005; 99285; U0003; U0005; 36415; 81003; 81015; 87635

== ENCOUNTER 2021-01-30 14:37 | Emergency (ER) | payer MEDICARE ==
[2021-01-30] MEDS ORDERED: Famotidine In NaCl 20 mg/50 ml Premix Bag ONE (15:13)
[2021-01-30] MEDS ORDERED: Ondansetron PF 4 MG/2 ML Vial ONE (15:13)
[2021-01-30 15:34] LABS: #Eosinphils 0.1 thou/uL (0.0-0.7); #Lymphocytes 0.8 thou/uL (1.20-3.40); #Monocytes 0.2 thou/uL (0.11-0.59); #Neutrophils 1.5 thou/uL (1.40-6.50); %Basophils 1.3 % (0.0-1.0); %Eosinophils 3.5 % (0.0-10.0); %Lymphocytes 30.7 % (21.0-51.0); %Monocytes 7.8 % (0.0-10.0); %Neutrophils 56.7 % (42.0-75.0); Hemoglobin 8.3 g/dL (12.0-16.0); Mean Corpuscular HGB CONC 31.4 g/dL (32.0-36.0); Mean Corpuscular Hemoglobin 29.9 pg (27.0-31.0); Mean Corpuscular Volume 95.1 fL (78.0-98.0); Mean Platelet Volume 6.5 fL (7.4-10.4); Platelet Count 160 thou/uL (130-400); Red Blood Cell (RBC) Count 2.78 mill/uL (4.20-5.40); White Blood Cell (WBC) Count 2.6 thou/uL (4.8-10.8)
[2021-01-30 15:46] LABS: ALT (SGPT) 20 U/L (8-55); AST (SGOT) 32 U/L (5-34); Albumin 3.7 g/dL (3.4-4.8); Alkaline Phosphatase 67 U/L (40-110); Anion Gap 11 mmol/L (10-20); BUN (Urea Nitrogen) 10 mg/dL (9.8-20.1); Bilirubin, Total 0.4 mg/dL (0.2-1.2); Calc. Creatinine Clearance 0 mL/min (70-130); Calcium 9.2 mg/dL (7.8-10.44); Carbon Dioxide 27 mmol/L (23-31); Chloride 103 mmol/L (98-107); Globulin 4.9 g/dL (2.4-3.5); Glucose 83 mg/dL (83-110); Lipase 46 U/L (8-78); Potassium 3.2 mmol/L (3.5-5.1); Protein, Total 8.6 g/dL (5.8-8.1); Sodium 138 mmol/L (136-145)
== END 2021-01-30 17:35 | disposition home or self-care (01) ==
LOC: BURERS 14:37
DX: D64.9 Anemia, unspecified (principal); M79.7 Fibromyalgia; M19.90 Unspecified osteoarthritis, unspecified site; J43.9 Emphysema, unspecified; M10.9 Gout, unspecified; K21.9 Gastro-esophageal reflux disease without esophagitis; E78.5 Hyperlipidemia, unspecified; I12.9 Hypertensive chronic kidney disease with stage 1 through stage 4 chronic kidney disease, or unspecified chronic kidney disease; N18.30 Chronic kidney disease, stage 3 unspecified; F17.290 Nicotine dependence, other tobacco product, uncomplicated; Z79.82 Long term (current) use of aspirin; Z79.899 Other long term (current) drug therapy
CPT/HCPCS: 71045; 80053; 83690; 84484; 85025; 93005; 94760; 96365; 96375; J2405

== ENCOUNTER 2021-03-27 14:21 | Inpatient (IN) | payer MEDICARE ==
[2021-03-27 15:30] VITALS: BMI 19.8
[2021-03-27] MEDS ORDERED: Senokot S 8.6-50 MG TAB PO PRN ×2 (16:36→16:43)
[2021-03-27] MEDS ORDERED: Furosemide 40 MG TAB PO PRN (16:36)
[2021-03-27] MEDS ORDERED: Ondansetron ODT 4 MG TAB PO PRN (16:42)
[2021-03-27] MEDS ORDERED: Bisacodyl 5 MG TAB PO PRN (16:44)
[2021-03-27] MEDS ORDERED: Cyanocobalamin 1000 MCG/ML VIAL SC SCH (16:45)
[2021-03-27] MEDS ORDERED: Albuterol Sulfate 2.5 mg/3 ml Neb NEB PRN (16:55)
[2021-03-27] MEDS: Pregabalin 25 MG CAP PO SCH (20:16)
[2021-03-27] MEDS: Ferrous Gluconate 324 MG TAB PO SCH (20:16)
[2021-03-27] MEDS: Famotidine 20 MG TAB PO SCH (20:16)
[2021-03-28] MEDS: Enoxaparin Sodium 30 MG/0.3 ML SYRINGE SC SCH (08:14)
[2021-03-28] MEDS: Multivitamin W/ Minerals 1 TAB PO SCH (08:15)
[2021-03-28] MEDS: Ferrous Gluconate 324 MG TAB PO SCH ×2 (08:15→20:07)
[2021-03-28] MEDS: Folic Acid 1 MG TAB PO SCH (08:16)
[2021-03-28] MEDS: Atorvastatin Calcium 10 MG TAB PO SCH (08:16)
[2021-03-28] MEDS: Pregabalin 25 MG CAP PO SCH ×3 (08:16→20:07)
[2021-03-28] MEDS: Famotidine 20 MG TAB PO SCH ×2 (08:16→20:07)
[2021-03-28] MEDS: Amlodipine 5 MG TAB PO SCH (08:17)
[2021-03-28] MEDS: HYDROcodone/Acetaminophen 5/325 mg Tablet PO PRN (12:25)
[2021-03-28] MEDS ORDERED: FLU VACC QS2021-22(65YR UP)/PF 240 MCG/0.7 ML SYRINGE IM ONE (18:30)
[2021-03-28] MEDS: hydrOXYzine 25 MG TAB PO PRN (20:18)
[2021-03-29 01:36] LABS: SARS-CoV-2 PCR by NAA Not Detected (NotDetected)
[2021-03-29] MEDS: Pregabalin 25 MG CAP PO SCH ×3 (08:54→20:06)
[2021-03-29] MEDS: Enoxaparin Sodium 30 MG/0.3 ML SYRINGE SC SCH (08:54)
[2021-03-29] MEDS: Folic Acid 1 MG TAB PO SCH (08:55)
[2021-03-29] MEDS: Ferrous Gluconate 324 MG TAB PO SCH ×2 (08:55→20:06)
[2021-03-29] MEDS: Multivitamin W/ Minerals 1 TAB PO SCH (08:55)
[2021-03-29] MEDS: Amlodipine 5 MG TAB PO SCH (08:56)
[2021-03-29] MEDS: Atorvastatin Calcium 10 MG TAB PO SCH (08:57)
[2021-03-29] MEDS: Famotidine 20 MG TAB PO SCH ×2 (08:57→20:06)
[2021-03-29] MEDS: HYDROcodone/Acetaminophen 5/325 mg Tablet PO PRN (16:06)
[2021-03-29] MEDS: hydrOXYzine 25 MG TAB PO PRN (22:17)
[2021-03-30] MEDS: HYDROcodone/Acetaminophen 5/325 mg Tablet PO PRN ×2 (08:35→20:34)
[2021-03-30] MEDS: Pregabalin 25 MG CAP PO SCH ×3 (08:37→20:36)
[2021-03-30] MEDS: Ferrous Gluconate 324 MG TAB PO SCH ×2 (08:39→20:34)
[2021-03-30] MEDS: Folic Acid 1 MG TAB PO SCH (08:39)
[2021-03-30] MEDS: Famotidine 20 MG TAB PO SCH ×2 (08:39→20:37)
[2021-03-30] MEDS: Multivitamin W/ Minerals 1 TAB PO SCH (08:39)
[2021-03-30] MEDS: Enoxaparin Sodium 30 MG/0.3 ML SYRINGE SC SCH (08:40)
[2021-03-30] MEDS: Atorvastatin Calcium 10 MG TAB PO SCH (08:40)
[2021-03-30] MEDS: Amlodipine 5 MG TAB PO SCH (09:11)
[2021-03-30] MEDS: Nicotine 14 MG PATCH TOP SCH ×2 (12:40→14:42)
[2021-03-30] MEDS: hydrOXYzine 25 MG TAB PO PRN ×2 (14:45→19:37)
[2021-03-31] MEDS: hydrOXYzine 25 MG TAB PO PRN ×2 (04:56→22:28)
[2021-03-31] MEDS: Amlodipine 5 MG TAB PO SCH (08:32)
[2021-03-31] MEDS: Famotidine 20 MG TAB PO SCH ×2 (08:32→20:23)
[2021-03-31] MEDS: Pregabalin 25 MG CAP PO SCH ×3 (08:33→20:23)
[2021-03-31] MEDS: Multivitamin W/ Minerals 1 TAB PO SCH (08:33)
[2021-03-31] MEDS: Folic Acid 1 MG TAB PO SCH (08:33)
[2021-03-31] MEDS: Ferrous Gluconate 324 MG TAB PO SCH ×2 (08:33→20:22)
[2021-03-31] MEDS: Enoxaparin Sodium 30 MG/0.3 ML SYRINGE SC SCH (08:34)
[2021-03-31] MEDS: Atorvastatin Calcium 10 MG TAB PO SCH (08:35)
[2021-03-31] MEDS: PILOCARPINE HYDROCHLORIDE PO PRN ×2 (10:02→15:14)
[2021-03-31] MEDS: HYDROcodone/Acetaminophen 5/325 mg Tablet PO PRN (13:30)
[2021-04-01] MEDS: Pregabalin 25 MG CAP PO SCH ×3 (09:06→20:16)
[2021-04-01] MEDS: Ferrous Gluconate 324 MG TAB PO SCH ×2 (09:08→20:15)
[2021-04-01] MEDS: Amlodipine 5 MG TAB PO SCH (09:08)
[2021-04-01] MEDS: Enoxaparin Sodium 30 MG/0.3 ML SYRINGE SC SCH (09:08)
[2021-04-01] MEDS: Multivitamin W/ Minerals 1 TAB PO SCH (09:08)
[2021-04-01] MEDS: Atorvastatin Calcium 10 MG TAB PO SCH (09:08)
[2021-04-01] MEDS: Famotidine 20 MG TAB PO SCH ×2 (09:09→20:16)
[2021-04-01] MEDS: Folic Acid 1 MG TAB PO SCH (09:09)
[2021-04-01] MEDS: HYDROcodone/Acetaminophen 5/325 mg Tablet PO PRN ×2 (09:11→22:43)
[2021-04-01] MEDS: PILOCARPINE HYDROCHLORIDE PO PRN (09:33)
[2021-04-01] MEDS: Nicotine 14 MG PATCH TOP SCH (13:00)
[2021-04-01] MEDS: hydrOXYzine 25 MG TAB PO PRN (22:43)
[2021-04-02] MEDS: Pregabalin 25 MG CAP PO SCH ×3 (08:23→20:16)
[2021-04-02] MEDS: Atorvastatin Calcium 10 MG TAB PO SCH (08:24)
[2021-04-02] MEDS: Folic Acid 1 MG TAB PO SCH (08:25)
[2021-04-02] MEDS: Multivitamin W/ Minerals 1 TAB PO SCH (08:25)
[2021-04-02] MEDS: Ferrous Gluconate 324 MG TAB PO SCH ×2 (08:25→20:16)
[2021-04-02] MEDS: Famotidine 20 MG TAB PO SCH ×2 (08:25→20:16)
[2021-04-02] MEDS: Enoxaparin Sodium 30 MG/0.3 ML SYRINGE SC SCH (08:26)
[2021-04-02] MEDS: PILOCARPINE HYDROCHLORIDE PO PRN ×3 (08:29→20:17)
[2021-04-02] MEDS: Amlodipine 5 MG TAB PO SCH (08:55)
[2021-04-02] MEDS: HYDROcodone/Acetaminophen 5/325 mg Tablet PO PRN (09:00)
[2021-04-02] MEDS: Nicotine 14 MG PATCH TOP SCH (12:59)
[2021-04-02] MEDS: hydrOXYzine 25 MG TAB PO PRN (15:14)
[2021-04-03] MEDS: HYDROcodone/Acetaminophen 5/325 mg Tablet PO PRN ×3 (00:32→23:04)
[2021-04-03] MEDS: hydrOXYzine 25 MG TAB PO PRN ×2 (00:35→23:05)
[2021-04-03 06:11] LABS: Hemoglobin 6.8 g/dL (12.0-16.0); Mean Corpuscular HGB CONC 30.2 g/dL (32.0-36.0); Mean Corpuscular Hemoglobin 29.3 pg (27.0-31.0); Mean Corpuscular Volume 96.8 fL (78.0-98.0); Platelet Count 199 thou/uL (130-400); RBC Distribution Width 18.6 % (11.5-14.5); Red Blood Cell (RBC) Count 2.31 mill/uL (4.20-5.40); White Blood Cell (WBC) Count 2.9 thou/uL (4.8-10.8)
[2021-04-03 06:48] LABS: Anisocytosis MODERATE=16-30 cells (100X) (0-5/hpf); Eosinophils 2 % (0-10); Lymphocytes 26 % (21-51); MDiff Complete? YES; Monocytes 10 % (0-10); Neutrophil 59 % (42-75); Platelet Morphology Comment Appears Adequate; Poikilocytosis SLIGHT = 6-15 cells (100X) (0-5/hpf); Reactive Lymphocytes 3 % (0-10)
[2021-04-03] MEDS: Pregabalin 25 MG CAP PO SCH ×3 (08:49→20:25)
[2021-04-03] MEDS: Folic Acid 1 MG TAB PO SCH (08:50)
[2021-04-03] MEDS: Amlodipine 5 MG TAB PO SCH (08:50)
[2021-04-03] MEDS: Enoxaparin Sodium 30 MG/0.3 ML SYRINGE SC SCH (08:50)
[2021-04-03] MEDS: Famotidine 20 MG TAB PO SCH ×2 (08:50→20:24)
[2021-04-03] MEDS: Ferrous Gluconate 324 MG TAB PO SCH ×2 (08:51→20:24)
[2021-04-03] MEDS: Multivitamin W/ Minerals 1 TAB PO SCH (08:52)
[2021-04-03] MEDS: Atorvastatin Calcium 10 MG TAB PO SCH (08:52)
[2021-04-03] MEDS: PILOCARPINE HYDROCHLORIDE PO PRN (09:00)
[2021-04-03] MEDS: Nicotine 14 MG PATCH TOP SCH (13:39)
[2021-04-04] MEDS: Pregabalin 25 MG CAP PO SCH ×3 (09:39→21:59)
[2021-04-04] MEDS: Multivitamin W/ Minerals 1 TAB PO SCH (09:41)
[2021-04-04] MEDS: Amlodipine 5 MG TAB PO SCH (09:41)
[2021-04-04] MEDS: Atorvastatin Calcium 10 MG TAB PO SCH (09:41)
[2021-04-04] MEDS: Famotidine 20 MG TAB PO SCH ×2 (09:41→21:59)
[2021-04-04] MEDS: Ferrous Gluconate 324 MG TAB PO SCH ×2 (09:41→21:59)
[2021-04-04] MEDS: Folic Acid 1 MG TAB PO SCH (09:41)
[2021-04-04] MEDS: Nicotine 14 MG PATCH TOP SCH (12:08)
[2021-04-04] MEDS: HYDROcodone/Acetaminophen 5/325 mg Tablet PO PRN (13:24)
[2021-04-04] MEDS: hydrOXYzine 25 MG TAB PO PRN (22:10)
[2021-04-05 08:24] LABS: Hemoglobin 7.2 g/dL (12.0-16.0); Mean Corpuscular HGB CONC 30.5 g/dL (32.0-36.0); Mean Corpuscular Hemoglobin 29.7 pg (27.0-31.0); Mean Corpuscular Volume 97.2 fL (78.0-98.0); Mean Platelet Volume 6.9 fL (7.4-10.4); Platelet Count 195 thou/uL (130-400); RBC Distribution Width 18.7 % (11.5-14.5); Red Blood Cell (RBC) Count 2.42 mill/uL (4.20-5.40); White Blood Cell (WBC) Count 3.2 thou/uL (4.8-10.8)
[2021-04-05] MEDS: HYDROcodone/Acetaminophen 5/325 mg Tablet PO PRN (08:30)
[2021-04-05] MEDS: Atorvastatin Calcium 10 MG TAB PO SCH (08:33)
[2021-04-05] MEDS: Ferrous Gluconate 324 MG TAB PO SCH ×2 (08:33→21:04)
[2021-04-05] MEDS: Pregabalin 25 MG CAP PO SCH ×3 (08:33→21:04)
[2021-04-05] MEDS: Folic Acid 1 MG TAB PO SCH (08:33)
[2021-04-05] MEDS: Multivitamin W/ Minerals 1 TAB PO SCH (08:33)
[2021-04-05] MEDS: Famotidine 20 MG TAB PO SCH ×2 (08:33→21:04)
[2021-04-05] MEDS: Amlodipine 5 MG TAB PO SCH (09:18)
[2021-04-05] MEDS: hydrOXYzine 25 MG TAB PO PRN ×2 (09:22→17:58)
[2021-04-05] MEDS: Nicotine 14 MG PATCH TOP SCH (12:38)
[2021-04-05] MEDS: Enoxaparin Sodium 30 MG/0.3 ML SYRINGE SC SCH (14:10)
[2021-04-05 14:42] LABS: SARS-CoV-2 PCR by NAA Not Detected (NotDetected)
[2021-04-05] MEDS: Acetaminophen 325 MG TAB PO PRN (17:55)
[2021-04-05] MEDS ORDERED: Sodium Chloride 0.9% 100 ML ONE (19:44)
[2021-04-05] MEDS ORDERED: Cefepime 2 GM VIAL ONE (19:44)
[2021-04-05] MEDS ORDERED: metroNIDAZOLE 500 MG/100 ML BAG ONE (20:21)
[2021-04-06] MEDS: Acetaminophen 325 MG TAB PO PRN (03:01)
[2021-04-06] MEDS: Multivitamin W/ Minerals 1 TAB PO SCH (08:47)
[2021-04-06] MEDS: Famotidine 20 MG TAB PO SCH ×2 (08:48→20:29)
[2021-04-06] MEDS: Amlodipine 5 MG TAB PO SCH (08:51)
[2021-04-06] MEDS: Ferrous Gluconate 324 MG TAB PO SCH ×2 (08:53→20:30)
[2021-04-06] MEDS: Pregabalin 25 MG CAP PO SCH ×3 (08:53→20:30)
[2021-04-06] MEDS: Folic Acid 1 MG TAB PO SCH (08:56)
[2021-04-06] MEDS: Atorvastatin Calcium 10 MG TAB PO SCH (08:56)
[2021-04-06] MEDS: Enoxaparin Sodium 30 MG/0.3 ML SYRINGE SC SCH (12:06)
[2021-04-06] MEDS: Nicotine 14 MG PATCH TOP SCH (12:07)
[2021-04-06] MEDS: HYDROcodone/Acetaminophen 5/325 mg Tablet PO PRN (18:00)
[2021-04-07] MEDS: hydrOXYzine 25 MG TAB PO PRN ×2 (02:00→23:31)
[2021-04-07] MEDS: Amlodipine 5 MG TAB PO SCH (08:42)
[2021-04-07] MEDS: Folic Acid 1 MG TAB PO SCH (08:43)
[2021-04-07] MEDS: Pregabalin 25 MG CAP PO SCH ×3 (08:43→20:32)
[2021-04-07] MEDS: Famotidine 20 MG TAB PO SCH ×2 (08:43→20:32)
[2021-04-07] MEDS: Ferrous Gluconate 324 MG TAB PO SCH ×2 (08:43→20:33)
[2021-04-07] MEDS: Multivitamin W/ Minerals 1 TAB PO SCH (08:43)
[2021-04-07] MEDS: Atorvastatin Calcium 10 MG TAB PO SCH (08:43)
[2021-04-07] MEDS: Enoxaparin Sodium 30 MG/0.3 ML SYRINGE SC SCH (12:41)
[2021-04-07] MEDS: Nicotine 14 MG PATCH TOP SCH (12:42)
[2021-04-07] MEDS ORDERED: Nystatin Cream 15 GM TUBE TOP SCH (14:00)
[2021-04-07] MEDS: HYDROcodone/Acetaminophen 5/325 mg Tablet PO PRN ×2 (14:09→23:31)
[2021-04-07] MEDS: Nystatin Cream 15 GM TUBE TOP SCH ×2 (14:10→20:34)
[2021-04-08] MEDS: Pregabalin 25 MG CAP PO SCH ×3 (08:41→20:18)
[2021-04-08] MEDS: Multivitamin W/ Minerals 1 TAB PO SCH (08:42)
[2021-04-08] MEDS: Ferrous Gluconate 324 MG TAB PO SCH ×2 (08:42→20:16)
[2021-04-08] MEDS: Famotidine 20 MG TAB PO SCH ×2 (08:42→20:16)
[2021-04-08] MEDS: Atorvastatin Calcium 10 MG TAB PO SCH (08:42)
[2021-04-08] MEDS: Folic Acid 1 MG TAB PO SCH (08:43)
[2021-04-08] MEDS: Amlodipine 5 MG TAB PO SCH (08:43)
[2021-04-08] MEDS: Nystatin Cream 15 GM TUBE TOP SCH ×2 (08:46→20:17)
[2021-04-08] MEDS: Enoxaparin Sodium 30 MG/0.3 ML SYRINGE SC SCH (14:37)
[2021-04-08] MEDS: Nicotine 14 MG PATCH TOP SCH (14:38)
[2021-04-08 15:31] LABS: Bilirubin Negative (Negative); Blood, Urine Negative (Negative); Clarity Clear (Clear); Glucose, Urine (Dipstick) Negative (Negative); Ketone, Urine Negative (Negative); Leukocyte Negative (Negative); Nitrite Negative (Negative); Protein, Urine (Dipstick) Negative (Neg-Trace); Urobilinogen 0.2 mg/dL (Less than 2); pH, Urine 6.5 (5.0-9.0)
[2021-04-08 15:35] LABS: Urine Culture Reflex No No
[2021-04-08 15:58] LABS: Bacteria/HPF Rare-Few HPF (None Seen); RBC/HPF 0-3 HPF (0-3); Squamous Epithelial 0-3 HPF (0-3); Transitional Epithelial 0-3 HPF (None Seen); WBC/HPF 0-3 HPF (0-3)
[2021-04-08] MEDS: HYDROcodone/Acetaminophen 5/325 mg Tablet PO PRN (20:14)
[2021-04-08] MEDS: hydrOXYzine 25 MG TAB PO PRN (20:15)
[2021-04-09] MEDS: Amlodipine 5 MG TAB PO SCH (09:31)
[2021-04-09] MEDS: Pregabalin 25 MG CAP PO SCH ×3 (09:32→20:39)
[2021-04-09] MEDS: Folic Acid 1 MG TAB PO SCH (09:32)
[2021-04-09] MEDS: Atorvastatin Calcium 10 MG TAB PO SCH (09:32)
[2021-04-09] MEDS: Multivitamin W/ Minerals 1 TAB PO SCH (09:32)
[2021-04-09] MEDS: Ferrous Gluconate 324 MG TAB PO SCH ×2 (09:32→20:39)
[2021-04-09] MEDS: Famotidine 20 MG TAB PO SCH ×2 (09:33→20:39)
[2021-04-09] MEDS: Nystatin Cream 15 GM TUBE TOP SCH ×2 (09:37→20:40)
[2021-04-09] MEDS: Nicotine 14 MG PATCH TOP SCH (13:26)
[2021-04-09] MEDS: Enoxaparin Sodium 30 MG/0.3 ML SYRINGE SC SCH (13:26)
[2021-04-09] MEDS: HYDROcodone/Acetaminophen 5/325 mg Tablet PO PRN (15:47)
[2021-04-10] MEDS: Acetaminophen 325 MG TAB PO PRN (04:01)
[2021-04-10] MEDS: Amlodipine 5 MG TAB PO SCH (08:41)
[2021-04-10] MEDS: Pregabalin 25 MG CAP PO SCH ×3 (08:42→20:33)
[2021-04-10] MEDS: Multivitamin W/ Minerals 1 TAB PO SCH (08:43)
[2021-04-10] MEDS: Folic Acid 1 MG TAB PO SCH (08:43)
[2021-04-10] MEDS: Ferrous Gluconate 324 MG TAB PO SCH ×2 (08:43→20:33)
[2021-04-10] MEDS: Atorvastatin Calcium 10 MG TAB PO SCH (08:43)
[2021-04-10] MEDS: Famotidine 20 MG TAB PO SCH ×2 (08:44→20:33)
[2021-04-10] MEDS: Nystatin Cream 15 GM TUBE TOP SCH ×2 (08:44→20:37)
[2021-04-10] MEDS: Enoxaparin Sodium 30 MG/0.3 ML SYRINGE SC SCH (11:37)
[2021-04-10] MEDS: Nicotine 14 MG PATCH TOP SCH (11:38)
[2021-04-10] MEDS: HYDROcodone/Acetaminophen 5/325 mg Tablet PO PRN (18:05)
[2021-04-10] MEDS: hydrOXYzine 25 MG TAB PO PRN (20:39)
[2021-04-11] MEDS: HYDROcodone/Acetaminophen 5/325 mg Tablet PO PRN ×2 (01:59→08:55)
[2021-04-11] MEDS: Ferrous Gluconate 324 MG TAB PO SCH ×2 (08:56→21:17)
[2021-04-11] MEDS: Pregabalin 25 MG CAP PO SCH ×3 (08:57→21:17)
[2021-04-11] MEDS: Multivitamin W/ Minerals 1 TAB PO SCH (08:57)
[2021-04-11] MEDS: Folic Acid 1 MG TAB PO SCH (08:58)
[2021-04-11] MEDS: Famotidine 20 MG TAB PO SCH ×2 (08:58→21:17)
[2021-04-11] MEDS: Atorvastatin Calcium 10 MG TAB PO SCH (08:58)
[2021-04-11] MEDS: Nystatin Cream 15 GM TUBE TOP SCH ×2 (08:59→21:17)
[2021-04-11] MEDS: Amlodipine 5 MG TAB PO SCH (09:06)
[2021-04-11] MEDS: PILOCARPINE HYDROCHLORIDE PO PRN (11:55)
[2021-04-11] MEDS: Nicotine 14 MG PATCH TOP SCH (12:04)
[2021-04-11] MEDS: Enoxaparin Sodium 30 MG/0.3 ML SYRINGE SC SCH (12:04)
[2021-04-12] MEDS: HYDROcodone/Acetaminophen 5/325 mg Tablet PO PRN ×2 (04:11→15:23)
[2021-04-12] MEDS: Pregabalin 25 MG CAP PO SCH ×3 (09:17→20:23)
[2021-04-12] MEDS: Multivitamin W/ Minerals 1 TAB PO SCH (09:17)
[2021-04-12] MEDS: Ferrous Gluconate 324 MG TAB PO SCH ×2 (09:20→20:22)
[2021-04-12] MEDS: Folic Acid 1 MG TAB PO SCH (09:21)
[2021-04-12] MEDS: Famotidine 20 MG TAB PO SCH ×2 (09:21→20:22)
[2021-04-12] MEDS: Atorvastatin Calcium 10 MG TAB PO SCH (09:21)
[2021-04-12] MEDS: Amlodipine 5 MG TAB PO SCH (09:24)
[2021-04-12] MEDS: Nystatin Cream 15 GM TUBE TOP SCH ×2 (09:27→20:22)
[2021-04-12] MEDS: Nicotine 14 MG PATCH TOP SCH (12:19)
[2021-04-12] MEDS: Enoxaparin Sodium 30 MG/0.3 ML SYRINGE SC SCH (12:19)
[2021-04-12] MEDS: PILOCARPINE HYDROCHLORIDE PO PRN (16:43)
[2021-04-13 06:12] VITALS: TEMP 99
[2021-04-13] MEDS: Amlodipine 5 MG TAB PO SCH (08:37)
[2021-04-13] MEDS: Pregabalin 25 MG CAP PO SCH ×2 (08:41→15:50)
[2021-04-13] MEDS: Famotidine 20 MG TAB PO SCH (08:42)
[2021-04-13] MEDS: Nystatin Cream 15 GM TUBE TOP SCH (08:42)
[2021-04-13] MEDS: Folic Acid 1 MG TAB PO SCH (08:42)
[2021-04-13] MEDS: Atorvastatin Calcium 10 MG TAB PO SCH (08:42)
[2021-04-13] MEDS: Ferrous Gluconate 324 MG TAB PO SCH (08:42)
[2021-04-13] MEDS: Multivitamin W/ Minerals 1 TAB PO SCH (08:42)
[2021-04-13 08:48] VITALS: BP 126/68
[2021-04-13] MEDS: Nicotine 14 MG PATCH TOP SCH (12:41)
[2021-04-13] MEDS: Enoxaparin Sodium 30 MG/0.3 ML SYRINGE SC SCH (12:41)
== END 2021-04-13 17:30 | disposition home health service (06) | DRG 948 ==
LOC: BURMED 14:50
PROVIDERS: ADMIT Family Medicine; ATTEND Family Medicine
DX: R53.81 Other malaise (principal); S32.049A Unspecified fracture of fourth lumbar vertebra, initial encounter for closed fracture; M19.90 Unspecified osteoarthritis, unspecified site; M79.7 Fibromyalgia; M10.9 Gout, unspecified; N18.30 Chronic kidney disease, stage 3 unspecified; I12.9 Hypertensive chronic kidney disease with stage 1 through stage 4 chronic kidney disease, or unspecified chronic kidney disease; Z96.643 Presence of artificial hip joint, bilateral; F17.210 Nicotine dependence, cigarettes, uncomplicated; K21.9 Gastro-esophageal reflux disease without esophagitis; D63.1 Anemia in chronic kidney disease; R35.0 Frequency of micturition; D72.819 Decreased white blood cell count, unspecified; Z20.822 Contact with and (suspected) exposure to COVID-19; W19.XXXA Unspecified fall, initial encounter; Z88.5 Allergy status to narcotic agent; Z91.040 Latex allergy status; Z90.49 Acquired absence of other specified parts of digestive tract
CPT/HCPCS: 36415; 81001; 82274; 85025; 85027; J0692; J1650; J3420; J3490; J7620; U0003; U0005

== ENCOUNTER 2022-04-30 18:41 | Inpatient (IN) | payer MEDICARE ==
[2022-04-30 19:56] VITALS: BMI 20.6
[2022-04-30] MEDS ORDERED: HYDROcodone/Acetaminophen 5/325 mg Tablet PO PRN (21:31)
[2022-04-30] MEDS ORDERED: Atorvastatin Calcium 10 MG TAB PO SCH (22:15)
[2022-04-30] MEDS ORDERED: Pregabalin 25 MG CAP PO SCH (22:15)
[2022-04-30] MEDS: hydrOXYzine 25 MG TAB PO PRN (22:38)
[2022-05-01] MEDS ORDERED: Albuterol Sulfate 2.5 mg/3 ml Neb NEB PRN (08:26)
[2022-05-01] MEDS ORDERED: predniSONE 20 MG TAB PO SCH (08:30)
[2022-05-01] MEDS ORDERED: Pregabalin 25 MG CAP PO SCH (09:00)
[2022-05-01] MEDS: Aspirin Chewable 81 MG TAB PO SCH (10:29)
[2022-05-01] MEDS: Amlodipine 5 MG TAB PO SCH (10:32)
[2022-05-01] MEDS: Ferrous Sulfate 325 MG TAB PO SCH (10:32)
[2022-05-01] MEDS: Sertraline 100 MG TAB PO SCH (10:32)
[2022-05-01] MEDS: Folic Acid 1 MG TAB PO SCH (10:33)
[2022-05-01] MEDS: Pregabalin 25 MG CAP PO SCH ×3 (10:34→20:42)
[2022-05-01 12:51] LABS: SARS-CoV-2 NAA Rapid Test Not Detected (NotDetected)
[2022-05-01] MEDS: Atorvastatin Calcium 10 MG TAB PO SCH (20:42)
[2022-05-01] MEDS: hydrOXYzine 25 MG TAB PO PRN (20:45)
[2022-05-01] MEDS: HYDROcodone/Acetaminophen 5/325 mg Tablet PO PRN (20:45)
[2022-05-01] MEDS ORDERED: Atorvastatin Calcium 10 MG TAB PO SCH (21:00)
[2022-05-02] MEDS: HYDROcodone/Acetaminophen 5/325 mg Tablet PO PRN (07:15)
[2022-05-02] MEDS: Amlodipine 5 MG TAB PO SCH (08:29)
[2022-05-02] MEDS: Ferrous Sulfate 325 MG TAB PO SCH (08:29)
[2022-05-02] MEDS: Aspirin Chewable 81 MG TAB PO SCH (08:29)
[2022-05-02] MEDS: Pregabalin 25 MG CAP PO SCH ×3 (08:30→20:54)
[2022-05-02] MEDS: predniSONE 20 MG TAB PO SCH (08:30)
[2022-05-02] MEDS: Sertraline 100 MG TAB PO SCH (08:31)
[2022-05-02] MEDS: Folic Acid 1 MG TAB PO SCH (08:31)
[2022-05-02] MEDS: Acetaminophen 325 MG TAB PO PRN ×2 (11:58→23:43)
[2022-05-02] MEDS: Atorvastatin Calcium 10 MG TAB PO SCH (20:54)
[2022-05-03] MEDS: Acetaminophen 325 MG TAB PO PRN (04:25)
[2022-05-03] MEDS: HYDROcodone/Acetaminophen 5/325 mg Tablet PO PRN (08:47)
[2022-05-03] MEDS: Pregabalin 25 MG CAP PO SCH ×3 (08:48→21:12)
[2022-05-03] MEDS: Amlodipine 5 MG TAB PO SCH (08:48)
[2022-05-03] MEDS: Ferrous Sulfate 325 MG TAB PO SCH (08:48)
[2022-05-03] MEDS: Sertraline 100 MG TAB PO SCH (08:49)
[2022-05-03] MEDS: predniSONE 20 MG TAB PO SCH (08:49)
[2022-05-03] MEDS: Aspirin Chewable 81 MG TAB PO SCH (08:49)
[2022-05-03] MEDS: Folic Acid 1 MG TAB PO SCH (08:49)
[2022-05-03] MEDS: Atorvastatin Calcium 10 MG TAB PO SCH (21:13)
[2022-05-04] MEDS: HYDROcodone/Acetaminophen 5/325 mg Tablet PO PRN (00:09)
[2022-05-04] MEDS: Acetaminophen 325 MG TAB PO PRN ×3 (04:51→22:25)
[2022-05-04] MEDS: Amlodipine 5 MG TAB PO SCH (08:54)
[2022-05-04] MEDS: Sertraline 100 MG TAB PO SCH (08:54)
[2022-05-04] MEDS: Ferrous Sulfate 325 MG TAB PO SCH (08:54)
[2022-05-04] MEDS: Aspirin Chewable 81 MG TAB PO SCH (08:54)
[2022-05-04] MEDS: Folic Acid 1 MG TAB PO SCH (08:54)
[2022-05-04] MEDS: predniSONE 20 MG TAB PO SCH (08:55)
[2022-05-04] MEDS: Pregabalin 25 MG CAP PO SCH ×3 (08:55→21:57)
[2022-05-04] MEDS: Atorvastatin Calcium 10 MG TAB PO SCH (21:57)
[2022-05-05] MEDS: HYDROcodone/Acetaminophen 5/325 mg Tablet PO PRN ×2 (04:45→18:09)
[2022-05-05] MEDS ORDERED: Amlodipine 5 MG TAB ONE ×2 (08:29→08:30)
[2022-05-05] MEDS: Pregabalin 25 MG CAP PO SCH ×3 (08:43→20:38)
[2022-05-05] MEDS: Amlodipine 5 MG TAB PO SCH (08:43)
[2022-05-05] MEDS: Ferrous Sulfate 325 MG TAB PO SCH (08:44)
[2022-05-05] MEDS: Aspirin Chewable 81 MG TAB PO SCH (08:44)
[2022-05-05] MEDS: Sertraline 100 MG TAB PO SCH (08:44)
[2022-05-05] MEDS: predniSONE 20 MG TAB PO SCH (08:45)
[2022-05-05] MEDS: Folic Acid 1 MG TAB PO SCH (08:45)
[2022-05-05] MEDS: Acetaminophen 325 MG TAB PO PRN (20:37)
[2022-05-05] MEDS: Atorvastatin Calcium 10 MG TAB PO SCH (20:37)
[2022-05-06] MEDS: Acetaminophen 325 MG TAB PO PRN (06:35)
[2022-05-06] MEDS: Pregabalin 25 MG CAP PO SCH ×3 (08:18→20:31)
[2022-05-06] MEDS: Amlodipine 5 MG TAB PO SCH (08:19)
[2022-05-06] MEDS: Sertraline 100 MG TAB PO SCH (08:20)
[2022-05-06] MEDS: Aspirin Chewable 81 MG TAB PO SCH (08:20)
[2022-05-06] MEDS: Ferrous Sulfate 325 MG TAB PO SCH (08:20)
[2022-05-06] MEDS: Folic Acid 1 MG TAB PO SCH (08:20)
[2022-05-06] MEDS: predniSONE 10 MG TAB PO SCH (08:21)
[2022-05-06] MEDS ORDERED: Docusate 100 MG CAP PO SCH (11:45)
[2022-05-06] MEDS ORDERED: Polyethylene Glycol 3350 17 GM Packet PO SCH (11:45)
[2022-05-06] MEDS: hydrOXYzine 25 MG TAB PO PRN (20:31)
[2022-05-06] MEDS: Atorvastatin Calcium 10 MG TAB PO SCH (20:32)
[2022-05-07] MEDS: Docusate 100 MG CAP PO SCH (09:51)
[2022-05-07] MEDS: Polyethylene Glycol 3350 17 GM Packet PO SCH (09:51)
[2022-05-07] MEDS: Pregabalin 25 MG CAP PO SCH ×4 (09:52→20:21)
[2022-05-07] MEDS: Aspirin Chewable 81 MG TAB PO SCH (09:52)
[2022-05-07] MEDS: Amlodipine 5 MG TAB PO SCH (09:53)
[2022-05-07] MEDS: Folic Acid 1 MG TAB PO SCH (09:54)
[2022-05-07] MEDS: Ferrous Sulfate 325 MG TAB PO SCH (09:54)
[2022-05-07] MEDS: Sertraline 100 MG TAB PO SCH (09:54)
[2022-05-07] MEDS: predniSONE 10 MG TAB PO SCH (09:54)
[2022-05-07] MEDS: hydrOXYzine 25 MG TAB PO PRN (20:22)
[2022-05-07] MEDS: Atorvastatin Calcium 10 MG TAB PO SCH (20:22)
[2022-05-07] MEDS: HYDROcodone/Acetaminophen 5/325 mg Tablet PO PRN (22:25)
[2022-05-08] MEDS: Sertraline 100 MG TAB PO SCH (09:27)
[2022-05-08] MEDS: Pregabalin 25 MG CAP PO SCH ×3 (09:27→21:51)
[2022-05-08] MEDS: Folic Acid 1 MG TAB PO SCH (09:27)
[2022-05-08] MEDS: Ferrous Sulfate 325 MG TAB PO SCH (09:28)
[2022-05-08] MEDS: Aspirin Chewable 81 MG TAB PO SCH (09:28)
[2022-05-08] MEDS: Amlodipine 5 MG TAB PO SCH (09:28)
[2022-05-08] MEDS: predniSONE 10 MG TAB PO SCH (09:28)
[2022-05-08] MEDS: Docusate 100 MG CAP PO SCH (09:29)
[2022-05-08] MEDS: Polyethylene Glycol 3350 17 GM Packet PO SCH (09:29)
[2022-05-08] MEDS: HYDROcodone/Acetaminophen 5/325 mg Tablet PO PRN (13:33)
[2022-05-08] MEDS: Atorvastatin Calcium 10 MG TAB PO SCH (21:52)
[2022-05-09] MEDS: Pregabalin 25 MG CAP PO SCH (08:23)
[2022-05-09] MEDS: Amlodipine 5 MG TAB PO SCH (08:24)
[2022-05-09] MEDS: Sertraline 100 MG TAB PO SCH (08:29)
[2022-05-09] MEDS: predniSONE 10 MG TAB PO SCH (08:29)
[2022-05-09] MEDS: Folic Acid 1 MG TAB PO SCH (08:29)
[2022-05-09] MEDS: Docusate 100 MG CAP PO SCH (08:29)
[2022-05-09] MEDS: Aspirin Chewable 81 MG TAB PO SCH (08:29)
[2022-05-09] MEDS: Ferrous Sulfate 325 MG TAB PO SCH (08:29)
[2022-05-09] MEDS: Polyethylene Glycol 3350 17 GM Packet PO SCH (08:30)
[2022-05-09] MEDS: Pregabalin 50 MG CAP PO SCH ×2 (14:49→22:49)
[2022-05-09] MEDS: Atorvastatin Calcium 10 MG TAB PO SCH (22:50)
[2022-05-09] MEDS: hydrOXYzine 25 MG TAB PO PRN (23:00)
[2022-05-10] MEDS: HYDROcodone/Acetaminophen 5/325 mg Tablet PO PRN (03:51)
[2022-05-10] MEDS: Pregabalin 50 MG CAP PO SCH ×3 (08:34→21:00)
[2022-05-10] MEDS: Amlodipine 5 MG TAB PO SCH (08:35)
[2022-05-10] MEDS: Aspirin Chewable 81 MG TAB PO SCH (08:35)
[2022-05-10] MEDS: Ferrous Sulfate 325 MG TAB PO SCH (08:36)
[2022-05-10] MEDS: Folic Acid 1 MG TAB PO SCH (08:36)
[2022-05-10] MEDS: predniSONE 10 MG TAB PO SCH (08:36)
[2022-05-10] MEDS: Sertraline 100 MG TAB PO SCH (08:36)
[2022-05-10] MEDS: Docusate 100 MG CAP PO SCH (08:36)
[2022-05-10] MEDS: Polyethylene Glycol 3350 17 GM Packet PO SCH (08:37)
[2022-05-10] MEDS: Atorvastatin Calcium 10 MG TAB PO SCH (21:00)
[2022-05-10] MEDS: hydrOXYzine 25 MG TAB PO PRN (21:00)
[2022-05-11] MEDS: HYDROcodone/Acetaminophen 5/325 mg Tablet PO PRN ×2 (06:11→20:33)
[2022-05-11] MEDS: Amlodipine 5 MG TAB PO SCH (08:50)
[2022-05-11] MEDS: Sertraline 100 MG TAB PO SCH (08:51)
[2022-05-11] MEDS: Pregabalin 50 MG CAP PO SCH ×3 (08:51→22:03)
[2022-05-11] MEDS: Docusate 100 MG CAP PO SCH (08:53)
[2022-05-11] MEDS: predniSONE 5 MG TAB PO SCH (08:53)
[2022-05-11] MEDS: Aspirin Chewable 81 MG TAB PO SCH (08:53)
[2022-05-11] MEDS: Ferrous Sulfate 325 MG TAB PO SCH (08:53)
[2022-05-11] MEDS: Folic Acid 1 MG TAB PO SCH (08:54)
[2022-05-11] MEDS: Polyethylene Glycol 3350 17 GM Packet PO SCH (08:54)
[2022-05-11] MEDS ORDERED: Nystatin Powder 15 GM BOT TOP SCH (10:15)
[2022-05-11] MEDS: Atorvastatin Calcium 10 MG TAB PO SCH (22:03)
[2022-05-11] MEDS: Nystatin Powder 15 GM BOT TOP SCH (22:05)
[2022-05-12] MEDS: Amlodipine 5 MG TAB PO SCH (09:06)
[2022-05-12] MEDS: Docusate 100 MG CAP PO SCH (09:06)
[2022-05-12] MEDS: Sertraline 100 MG TAB PO SCH (09:06)
[2022-05-12] MEDS: Folic Acid 1 MG TAB PO SCH (09:07)
[2022-05-12] MEDS: Pregabalin 50 MG CAP PO SCH ×3 (09:07→20:30)
[2022-05-12] MEDS: Ferrous Sulfate 325 MG TAB PO SCH (09:07)
[2022-05-12] MEDS: Aspirin Chewable 81 MG TAB PO SCH (09:08)
[2022-05-12] MEDS: Nystatin Powder 15 GM BOT TOP SCH ×2 (09:08→20:31)
[2022-05-12] MEDS: predniSONE 5 MG TAB PO SCH (09:08)
[2022-05-12] MEDS: Polyethylene Glycol 3350 17 GM Packet PO SCH (09:09)
[2022-05-12] MEDS: Atorvastatin Calcium 10 MG TAB PO SCH (20:30)
[2022-05-12 20:46] LABS: Bilirubin Negative (Negative); Blood, Urine Trace (Negative); CAUTI Indications for Culture Dysuria,urgency,freq; Clarity Clear (Clear); Glucose, Urine (Dipstick) Negative (Negative); Ketone, Urine Negative (Negative); Leukocyte Small (Negative); Nitrite Negative (Negative); Protein, Urine (Dipstick) Negative (Neg-Trace); Specific Gravity, Urine 1.015 (1.005-1.030); Urobilinogen 0.2 mg/dL (Less than 2); pH, Urine 7.5 (5.0-9.0)
[2022-05-12 20:52] LABS: RBC/HPF 0-3 HPF (0-3)
[2022-05-12 21:06] LABS: Squamous Epithelial None Seen HPF (0-3); WBC/HPF 0-3 HPF (0-3)
[2022-05-12 21:07] LABS: Transitional Epithelial None Seen HPF (None Seen)
[2022-05-12 21:08] LABS: Bacteria/HPF Rare-Few HPF (None Seen); Urine Culture Reflex No No
[2022-05-13] MEDS: Acetaminophen 325 MG TAB PO PRN ×2 (06:28→20:51)
[2022-05-13] MEDS: Polyethylene Glycol 3350 17 GM Packet PO SCH (08:25)
[2022-05-13] MEDS: Pregabalin 50 MG CAP PO SCH ×3 (08:26→20:41)
[2022-05-13] MEDS: Aspirin Chewable 81 MG TAB PO SCH (08:28)
[2022-05-13] MEDS: predniSONE 5 MG TAB PO SCH (08:28)
[2022-05-13] MEDS: Folic Acid 1 MG TAB PO SCH (08:28)
[2022-05-13] MEDS: Amlodipine 5 MG TAB PO SCH (08:28)
[2022-05-13] MEDS: Ferrous Sulfate 325 MG TAB PO SCH (08:28)
[2022-05-13] MEDS: Sertraline 100 MG TAB PO SCH (08:29)
[2022-05-13] MEDS: Nystatin Powder 15 GM BOT TOP SCH ×2 (08:31→20:52)
[2022-05-13] MEDS: Docusate 100 MG CAP PO SCH (08:32)
[2022-05-13] MEDS: Atorvastatin Calcium 10 MG TAB PO SCH (20:40)
[2022-05-14] MEDS: Acetaminophen 325 MG TAB PO PRN ×2 (07:06→23:30)
[2022-05-14] MEDS: Amlodipine 5 MG TAB PO SCH (08:51)
[2022-05-14] MEDS: Aspirin Chewable 81 MG TAB PO SCH (08:51)
[2022-05-14] MEDS: predniSONE 5 MG TAB PO SCH (08:51)
[2022-05-14] MEDS: Docusate 100 MG CAP PO SCH (08:51)
[2022-05-14] MEDS: Ferrous Sulfate 325 MG TAB PO SCH (08:52)
[2022-05-14] MEDS: Folic Acid 1 MG TAB PO SCH (08:52)
[2022-05-14] MEDS: Nystatin Powder 15 GM BOT TOP SCH ×2 (08:52→21:08)
[2022-05-14] MEDS: Pregabalin 50 MG CAP PO SCH ×3 (09:31→21:07)
[2022-05-14] MEDS: Sertraline 100 MG TAB PO SCH (09:31)
[2022-05-14] MEDS: Polyethylene Glycol 3350 17 GM Packet PO SCH (09:31)
[2022-05-14] MEDS: Atorvastatin Calcium 10 MG TAB PO SCH (21:07)
[2022-05-15] MEDS: Polyethylene Glycol 3350 17 GM Packet PO SCH (08:51)
[2022-05-15] MEDS: Docusate 100 MG CAP PO SCH (08:52)
[2022-05-15] MEDS: Pregabalin 50 MG CAP PO SCH ×3 (08:52→20:11)
[2022-05-15] MEDS: Sertraline 100 MG TAB PO SCH (08:56)
[2022-05-15] MEDS: Ferrous Sulfate 325 MG TAB PO SCH (08:56)
[2022-05-15] MEDS: Folic Acid 1 MG TAB PO SCH (08:56)
[2022-05-15] MEDS: Amlodipine 5 MG TAB PO SCH (08:56)
[2022-05-15] MEDS: Aspirin Chewable 81 MG TAB PO SCH (08:57)
[2022-05-15] MEDS: predniSONE 5 MG TAB PO SCH (08:57)
[2022-05-15] MEDS: Nystatin Powder 15 GM BOT TOP SCH ×2 (11:24→20:30)
[2022-05-15] MEDS: HYDROcodone/Acetaminophen 5/325 mg Tablet PO PRN (13:42)
[2022-05-15] MEDS: hydrOXYzine 25 MG TAB PO PRN (20:11)
[2022-05-15] MEDS: Atorvastatin Calcium 10 MG TAB PO SCH (20:12)
[2022-05-16] MEDS: Amlodipine 5 MG TAB PO SCH (08:28)
[2022-05-16] MEDS: predniSONE 5 MG TAB PO SCH (08:30)
[2022-05-16] MEDS: Folic Acid 1 MG TAB PO SCH (08:30)
[2022-05-16] MEDS: Sertraline 100 MG TAB PO SCH (08:31)
[2022-05-16] MEDS: Aspirin Chewable 81 MG TAB PO SCH (08:31)
[2022-05-16] MEDS: Pregabalin 50 MG CAP PO SCH ×3 (08:31→20:26)
[2022-05-16] MEDS: Polyethylene Glycol 3350 17 GM Packet PO SCH (08:32)
[2022-05-16] MEDS: Docusate 100 MG CAP PO SCH (08:40)
[2022-05-16] MEDS: Nystatin Powder 15 GM BOT TOP SCH ×2 (08:40→20:27)
[2022-05-16] MEDS: Ferrous Sulfate 325 MG TAB PO SCH (08:40)
[2022-05-16] MEDS: Atorvastatin Calcium 10 MG TAB PO SCH (20:27)
[2022-05-17 05:50] VITALS: BP 121/71; TEMP 98.4
[2022-05-17] MEDS: Docusate 100 MG CAP PO SCH (08:45)
[2022-05-17] MEDS: Folic Acid 1 MG TAB PO SCH (08:46)
[2022-05-17] MEDS: Sertraline 100 MG TAB PO SCH (08:46)
[2022-05-17] MEDS: predniSONE 5 MG TAB PO SCH (08:47)
[2022-05-17] MEDS: Amlodipine 5 MG TAB PO SCH (08:47)
[2022-05-17] MEDS: Ferrous Sulfate 325 MG TAB PO SCH (08:48)
[2022-05-17] MEDS: Pregabalin 50 MG CAP PO SCH (08:48)
[2022-05-17] MEDS: Aspirin Chewable 81 MG TAB PO SCH (08:49)
[2022-05-17] MEDS: Polyethylene Glycol 3350 17 GM Packet PO SCH (08:50)
[2022-05-17] MEDS: Nystatin Powder 15 GM BOT TOP SCH (08:54)
[2022-05-21] MEDS ORDERED: predniSONE 5 MG TAB PO SCH (08:00)
== END 2022-05-17 14:10 | disposition hospice, home (50) | DRG 948 ==
LOC: UNDOADMIN 18:41 → BURMED 18:41 → UNDOADMIN 20:56
PROVIDERS: ADMIT Family Medicine; ATTEND Family Medicine
DX: R53.1 Weakness (principal); Z20.822 Contact with and (suspected) exposure to COVID-19; M79.7 Fibromyalgia; M32.9 Systemic lupus erythematosus, unspecified; D63.1 Anemia in chronic kidney disease; J44.9 Chronic obstructive pulmonary disease, unspecified; M19.90 Unspecified osteoarthritis, unspecified site; N18.9 Chronic kidney disease, unspecified; Z60.2 Problems related to living alone; M35.3 Polymyalgia rheumatica; G62.9 Polyneuropathy, unspecified; G89.29 Other chronic pain; I12.9 Hypertensive chronic kidney disease with stage 1 through stage 4 chronic kidney disease, or unspecified chronic kidney disease; Z82.49 Family history of ischemic heart disease and other diseases of the circulatory system; Z87.891 Personal history of nicotine dependence; Z51.5 Encounter for palliative care; Z79.82 Long term (current) use of aspirin; Z79.899 Other long term (current) drug therapy; Z79.52 Long term (current) use of systemic steroids
CPT/HCPCS: 81001; 87811; 94640; J7512; J7611; U0002

== ENCOUNTER 2024-08-13 09:37 | Outpatient (CLI) | payer OTHER | END 2024-08-13 09:38 | disposition home or self-care (01) | LOC: BURRAD 09:37 | PROVIDERS: ATTEND Family Medicine | DX: M25.511 Pain in right shoulder (principal); M19.011 Primary osteoarthritis, right shoulder ==